=== PATIENT | male | born 1965 | race Caucasian/White ===

== ENCOUNTER → 2018-06-11 12:08 | Outpatient (CLI) | payer BC, SELFPAY ==
[2017-08-16 15:12] VITALS: BMI 33.2
[2018-06-11 15:19] LABS: Cholesterol 213 mg/dL (200); High Density Lipoprotein 55 mg/dL; PSA,Total - Annual Screen 0.46 ng/mL (0.00-4.00); Triglycerides 113 mg/dL; Very Low Density Lipoprotein 23 mg/dL (5-40)
== END ==
PROVIDERS: Family Provider Family Medicine; PCP Family Medicine; Visit Provider Family Medicine
DX: Z80.42 Family history of malignant neoplasm of prostate (principal)
CPT/HCPCS: 36415; 80061; 84153; G0103

== ENCOUNTER → 2018-06-15 14:43 | Outpatient (CLI) | payer BC, SELFPAY ==
[2018-06-15 17:54] LABS: CRP 8.47 mg/L (0.0-3.0); Rheumatoid Factor < 10.0 IU/mL (<15); Uric Acid 4.9 mg/dL (3.5-7.2)
[2018-06-15 18:00] LABS: Absolute Lymphocyte Count 2.22 X10^3/ul (0.83-4.51); Absolute Neutrophil Count 2.2 X10^3/uL (2.0-7.7); Basophil# 0.03 X10^3/uL; Basophil% 0.6 % (0-1); Eosinophil# 0.19 X10^3/uL; Eosinophils% 3.8 % (0-5); Hematocrit 41.9 % (40-54); Hemoglobin 13.9 g/dl (13.0-16.5); Lymphocyte # 2.22 X10^3/ul (4.0); Lymphocyte % 44.3 % (19-41); Mean Corp Hgb Conc 33.2 g/gl (32-36); Mean Corpuscular Hgb 29.8 pg (27.0-32.0); Mean Corpuscular Volume 89.7 fL (80-94); Mean Platelet Vol. 10.5 fl (6.2-12.0); Monocyte# 0.38 X10^3/uL; Monocyte% 7.6 % (0-10); Neutrophil # 2.18 X10^3/uL (2.7-7.7); Neutrophil % 43.5 % (47-70); Platelet Count 207 K/mm3 (150-450); RBC Distribution Width CV 12.7 % (11.6-14.6); RBC Distribution Width SD 40.9 fl (35.1-43.9); Red Blood Count 4.67 M/mm3 (4.6-6.2)
[2018-06-15 18:12] LABS: POSITIVE COUNT NO; POSITIVE DIFFERENTIAL NO; POSITIVE MORPHOLOGY NO
[2018-06-15 18:19] LABS: Erythrocyte Sedimentation Rate 21 mm/hr (0-20)
[2018-06-18 15:53] LABS: ANTINUCLEAR ANTIBODIES DIRECT Negative (Negative)
== END ==
PROVIDERS: Family Provider Family Medicine; PCP Family Medicine; Visit Provider Family Medicine
DX: M25.50 Pain in unspecified joint (principal)
CPT/HCPCS: 36415; 84550; 85025; 85652; 86038; 86140; 86431

== ENCOUNTER → 2018-08-08 14:17 | Outpatient (CLI) | payer BC, SELFPAY ==
[2018-08-08 15:37] LABS: Absolute Lymphocyte Count 1.97 X10^3/ul (0.83-4.51); Absolute Neutrophil Count 1.8 X10^3/uL (2.0-7.7); Basophil# 0.01 X10^3/uL; Basophil% 0.2 % (0-1); Eosinophil# 0.08 X10^3/uL; Eosinophils% 1.9 % (0-5); Hematocrit 41.8 % (40-54); Hemoglobin 13.9 g/dl (13.0-16.5); Lymphocyte # 1.97 X10^3/ul (4.0); Lymphocyte % 47.2 % (19-41); Mean Corp Hgb Conc 33.3 g/gl (32-36); Mean Corpuscular Hgb 29.9 pg (27.0-32.0); Mean Corpuscular Volume 89.9 fL (80-94); Mean Platelet Vol. 10.3 fl (6.2-12.0); Monocyte# 0.34 X10^3/uL; Monocyte% 8.2 % (0-10); Neutrophil # 1.77 X10^3/uL (2.7-7.7); Neutrophil % 42.5 % (47-70); POSITIVE COUNT NO; POSITIVE DIFFERENTIAL NO; POSITIVE MORPHOLOGY NO; Platelet Count 195 K/mm3 (150-450); RBC Distribution Width SD 42.2 fl (35.1-43.9); Red Blood Count 4.65 M/mm3 (4.6-6.2); White Blood Count 4.2 K/mm3 (4.4-11.0)
[2018-08-08 16:03] LABS: ALB/GLOB Ratio 1.4 RATIO (0.9-2.4); AST(SGOT) 17 U/L (15-37); Alanine Aminotransfer ALT/SGPT 31 U/L (16-61); Albumin, Serum 4.2 g/dL (3.2-5.0); Alkaline Phosphatase 63 U/L (45-117); Anion Gap 6 (5-15); BUN 12 mg/dL (7-18); BUN/Creat Ratio 10.4 RATIO (10-20); CRP < 2.90 mg/L (0.0-3.0); Calcium,Total 8.8 mg/dL (8.5-10.1); Chloride 107 mmol/L (98-107); Creatinine, Serum 1.15 mg/dL (0.70-1.30); EST Glomerular Filtration Rate 70 mL/min (>60); Est Glom Filt Rate - Afr Amer 85 mL/min (>60); Globulin 2.9 g/dL (2.2-4.2); Glucose 71 mg/dL (74-106); Potassium 4.2 mmol/L (3.5-5.1); Protein, Total 7.1 g/dL (6.4-8.2); Rheumatoid Factor < 10.0 IU/mL (<15); Sodium Level 143 mmol/L (136-145)
[2018-08-08 16:09] LABS: Erythrocyte Sedimentation Rate 12 mm/hr (0-20)
[2018-08-11 11:08] LABS: CCP IgG Antibodies 7 units (0-19); HEPATITIS B SURFACE AG Negative (Negative); Hep B Surface Antibodies Non Reactive (.); Hep C Antibodies 0.1 s/co ratio (0.0-0.9)
--- OUTSIDE RECORDS SUMMARY | 2018-10-13 11:17 | XMS RPT_ITS ---
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 / [facility] M06.4(ICD-10) Hospital Repository 06/12/2018 Unknown Z80.42 - Family Stephanie Dumont Active [facility] history of malignant [facility] neoplasm of prostate Hospital / Z80.42(ICD-10) Repository PROCEDURES PROCEDURES No Procedure Records FoundRESULTS RESULTS CBC W/DIFF, AUTOMATED Collected: 08/08/2018 Status: F Source: [facility] 2[facility] REPOSITORY TYPE CODE TESTS RESULT OUT OF RANGE REFERENCE UNITS LAB L100.1000 4.4-11.0 K/mm3 Low WBC 4.2 LAB L100.1200 4.6-6.2 M/mm3 Normal RBC 4.65 LAB L100.1300 13.0-16.5 g/dl Normal HGB 13.9 LAB L100.1400 40-54 % Normal HCT 41.8 LAB L100.1500 80-94 fL Normal MCV 89.9 LAB L100.1600 27.0-32.0 pg Normal MCH 29.9 LAB L100.1700 32-36 g/gl Normal MCHC 33.3 LAB L100.1810 11.6-14.6 % Normal RDW CV 13.0 LAB L100.1820 35.1-43.9 fl Normal RDW SD 42.2 LAB L100.1900 150-450 K/mm3 Normal PLT 195 LAB L100.2000 6.2-12.0 fl Normal MPV 10.3 LAB L100.2100 47-70 % Low NEUT% 42.5 LAB L100.2200 19-41 % High LY% 47.2 LAB L100.2300 0-10 % Normal MONO% 8.2 LAB L100.2400 0-5 % Normal EO% 1.9 LAB L100.2500 0-1 % Normal BASO% 0.2 LAB L100.2550 0.0-0.9 % Normal IM GRAN % 0.000 Result Comment: IG% - Immature Granulocytes (promyelocytes, myelocytes and metamyelocytes) > 1% indicates that a LEFT SHIFT is Present. LAB L100.2620 2.0-7.7 X10 3/uL Low Absolute Neut 1.8 LAB L100.2720 0.83-4.51 X10 3/ul Normal Absolute Lymph 1.97 Performed By: #### L100.0100, L101.9900 #### [facility] [address] [place], [place], [id number] ERYTHROCYTE SED RATE Collected: 08/08/2018 Status: F Source: [facility] 2:20 PM [facility] REPOSITORY TYPE CODE TESTS RESULT OUT OF RANGE REFERENCE UNITS LAB L102.0000 0-20 mm/hr Normal SED RATE 12 Performed By: #### L100.0100, L101.9900 #### [facility] [address] [place], [place], [id number] COMPREHENSIVE METABOLIC Collected: 08/08/2018 Status: F Source: [facility] PROFIL 2:20 PM [facility] REPOSITORY TYPE CODE TESTS RESULT OUT OF RANGE REFERENCE UNITS LAB L501.0100 74-106 mg/dL Low GLU 71 Result Comment: Please note revised GLUCOSE reference range effective 2017. LAB L501.1000 7-18 mg/dL Normal BUN 12 LAB L501.1100 0.70-1.30 mg/dL Normal CREAT,SERUM 1.15 Result Comment: The validity of the calculated GFR AND GFRAA in patients over 70 years has not been determined. Clinical correlation is essential. LAB L501.1110 >60 mL/min Normal EST GFR 70 Result Comment: Non- GFR Calc LAB L501.1115 >60 mL/min Normal EST GFR - AA 85 Result Comment: GFR Calc LAB L501.1300 10-20 RATIO Normal BUN/CRE 10.4 LAB L501.1500 6.4-8.2 g/dL T Normal PROT 7.1 LAB L501.1800 3.2-5.0 g/dL Normal ALB 4.2 LAB L501.1950 2.2-4.2 g/dL Normal GLOB 2.9 LAB L501.2000 0.9-2.4 RATIO Normal A/G 1.4 LAB L501.2200 8.5-10.1 mg/dL CA Normal 8.8 LAB L501.4100 15-37 U/L Normal AST 17 LAB L501.4305 45-117 U/L Normal ALK P 63 LAB L501.4405 16-61 U/L Normal ALT 31 LAB L501.4600 0.20-1.00 mg/dL T Normal BILI 0.50 LAB L501.5300 136-145 mmol/L NA Normal 143 LAB L501.5600 3.5-5.1 mmol/L K Normal 4.2 LAB L501.5900 98-107 mmol/L CL Normal 107 LAB L501.6100 21.0-32.0 mmol/L Normal CO2 30.0 LAB L501.6200 5-15 Normal GAP 6 Performed By: #### L500.4050, L501.6710, L505.7010 #### [facility] [address] [place], [place], [address] CRP Collected: 08/08/2018 Status: F Source: [facility] 2:20 PM [facility] REPOSITORY TYPE CODE TESTS RESULT OUT OF RANGE REFERENCE UNITS LAB L501.6710 0.0-3.0 mg/L Normal < 2.90 C-REACTIVE PROT Result Comment: C-Reactive Protein (CRP) provides useful information for the diagnosis, therapy and monitoring of inflammatory processes and associated diseases. For the evaluation of Relative Risk for Cardiovascular Disease, a High Sensitivity CRP (HSCRP) should be ordered. Performed By: #### L500.4050, L501.6710, L505.7010 #### [facility] [address] [place], [place], [address] RHEUMATOID FACTOR Collected: 08/08/2018 Status: F Source: [facility] 2:20 PM [facility] REPOSITORY TYPE CODE TESTS RESULT OUT OF RANGE REFERENCE UNITS LAB L505.7010 <15 IU/mL Normal RHEUMATOID FAC < 10.0 Performed By: #### L500.4050, L501.6710, L505.7010 #### [facility] [address] [place], [place], [id number] HEPATITIS B SURFACE Collected: 08/08/2018 Status: F Source: [facility] AG 2:20 PM [facility] REPOSITORY TYPE CODE TESTS RESULT OUT OF RANGE REFERENCE UNITS LAB L3100.0400 Negative Normal HB Negative SURF AG Result Comment: Performed at: - [facility] [address] [id number] Cloth Covered Helmet Puller: Cuauhtemoc Hernandez PhD, Phone: [phone] Performed at: - [facility] [id number] Cloth Covered Helmet Puller: Leonardo Szymanski MD, Phone: [phone] Performed By: #### L3100.0390, L3100.0528, L3100.0625, L4600.0100 #### [facility] (refer to report for specific site) refer to report for address and phone number HEP B SURFACE Collected: 08/08/2018 Status: F Source: [facility] ANTIBODIES 2:20 PM [facility] REPOSITORY TYPE CODE TESTS RESULT OUT OF RANGE REFERENCE UNITS LAB L3100.0528 . Normal Hep B Non Reactive Marivel AB Result Comment: Non Reactive: Inconsistent with immunity, less than 10 mIU/mL Reactive: Consistent with immunity, greater than 9.9 mIU/mL Performed By: #### L3100.0390, L3100.0528, L3100.0625, L4600.0100 #### [facility] (refer to report for specific site) refer to report for address and phone number HEPATITIS C ANTIBODIES Collected: 08/08/2018 Status: F Source: [facility] 2:20 PM [facility] REPOSITORY TYPE CODE TESTS RESULT OUT OF RANGE REFERENCE UNITS LAB L3100.0650 0.0-0.9 s/co ratio Normal HEP C AB 0.1 Result Comment: Negative: < 0.8 Indeterminate: 0.8 - 0.9 Positive: > 0.9 The CDC recommends that a positive HCV antibody result be followed up with a HCV Nucleic Acid Amplification test (820383). Performed By: #### L3100.0390, L3100.0528, L3100.0625, L4600.0100 #### [facility] (refer to report for specific site) refer to report for address and phone number CCP IGG ANTIBODIES Collected: 08/08/2018 Status: F Source: [facility] 2:20 PM [facility] REPOSITORY TYPE CODE TESTS RESULT OUT OF RANGE REFERENCE UNITS LAB L4600.0100 0-19 units Normal ANTI-CCP 7 [id number] Result Comment: Negative <20 Weak positive 20 - 39 Moderate positive 40 - 59 Strong positive >59 Performed By: #### L3100.0390, L3100.0528, L3100.0625, L4600.0100 #### [facility] (refer to report for specific site) refer to report for address and phone number URIC ACID Collected: 06/15/2018 Status: F Source: [facility] 2:44 PM [facility] REPOSITORY TYPE CODE TESTS RESULT OUT OF RANGE REFERENCE UNITS LAB L501.1400 3.5-7.2 mg/dL Normal URIC 4.9 Result Comment: The drugs N-Acetylcysteine and Metamizole may falsely depress this assay. Performed By: #### L501.1400, L501.6710, L505.7010 #### [facility] [place], [address] CRP Collected: 06/15/2018 Status: F Source: [facility] 2:44 PM [facility] REPOSITORY TYPE CODE TESTS RESULT OUT OF RANGE REFERENCE UNITS LAB L501.6710 0.0-3.0 mg/L High 8.47 C-REACTIVE PROT Result Comment: C-Reactive Protein (CRP) provides useful information for the diagnosis, therapy and monitoring of inflammatory processes and associated diseases. For the evaluation of Relative Risk for Cardiovascular Disease, a High Sensitivity CRP (HSCRP) should be ordered. Performed By: #### L501.1400, L501.6710, L505.7010 #### [facility] [address] [place], [place], [address] RHEUMATOID FACTOR Collected: 06/15/2018 Status: F Source: [facility] 2:44 PM [facility] REPOSITORY TYPE CODE TESTS RESULT OUT OF RANGE REFERENCE UNITS LAB L505.7010 <15 IU/mL Normal RHEUMATOID FAC < 10.0 Performed By: #### L501.1400, L501.6710, L505.7010 #### [facility] [address] [place], [place], [address] CBC W/DIFF, AUTOMATED Collected: 06/15/2018 Status: F Source: [facility] 2:44 PM [facility] REPOSITORY TYPE CODE TESTS RESULT OUT OF RANGE REFERENCE UNITS LAB L100.1000 4.4-11.0 K/mm3 Normal WBC 5.0 LAB L100.1200 4.6-6.2 M/mm3 Normal RBC 4.67 LAB L100.1300 13.0-16.5 g/dl Normal HGB 13.9 LAB L100.1400 40-54 % Normal HCT 41.9 LAB L100.1500 80-94 fL Normal MCV 89.7 LAB L100.1600 27.0-32.0 pg Normal MCH 29.8 LAB L100.1700 32-36 g/gl Normal MCHC 33.2 LAB L100.1810 11.6-14.6 % Normal RDW CV 12.7 LAB L100.1820 35.1-43.9 fl Normal RDW SD 40.9 LAB L100.1900 150-450 K/mm3 Normal PLT 207 LAB L100.2000 6.2-12.0 fl Normal MPV 10.5 LAB L100.2100 47-70 % Low NEUT% 43.5 LAB L100.2200 19-41 % High LY% 44.3 LAB L100.2300 0-10 % Normal MONO% 7.6 LAB L100.2400 0-5 % Normal EO% 3.8 LAB L100.2500 0-1 % Normal BASO% 0.6 LAB L100.2550 0.0-0.9 % Normal IM GRAN % 0.200 Result Comment: IG% - Immature Granulocytes (promyelocytes, myelocytes and metamyelocytes) > 1% indicates that a LEFT SHIFT is Present. LAB L100.2620 2.0-7.7 X10 3/uL Normal Absolute Neut 2.2 LAB L100.2720 0.83-4.51 X10 3/ul Normal Absolute Lymph 2.22 Performed By: #### L100.0100, L101.9900 #### [facility] [address] [place], [place], [address] ERYTHROCYTE SED RATE Collected: 06/15/2018 Status: F Source: [facility] 2:44 PM [facility] REPOSITORY TYPE CODE TESTS RESULT OUT OF RANGE REFERENCE UNITS LAB L102.0000 0-20 mm/hr High SED RATE 21 Performed By: #### L100.0100, L101.9900 #### [facility] [address] [place], [place], [address] ANTINUCLEAR ANTIBODIES Collected: 06/15/2018 Status: F Source: [facility] DIRECT 2:44 PM [facility] REPOSITORY TYPE CODE TESTS RESULT OUT OF RANGE REFERENCE UNITS LAB L3100.5475 Negative Normal Negative DARIEL-DIRECT Result Comment: Please Note: Specimen is lipemic. Performed at: - [facility] [id number] Cloth Covered Helmet Puller: Cuauhtemoc Hernandez PhD, Phone: [phone] Performed By: #### L3100.5475 #### [facility] (refer to report for specific site) refer to report for address and phone number LIPID PROFILE Collected: 06/11/2018 Status: F Source: [facility] 12:09 PM [facility] REPOSITORY TYPE CODE TESTS RESULT OUT OF RANGE REFERENCE UNITS LAB L501.4900 200 mg/dL High CHOL 213 Result Comment: <200 mg/dL Desirable 200-240 mg/dL Borderline >240 mg/dL High Risk LAB L501.5000 mg/dL Normal TRIG 113 Result Comment: The drugs N-Acetylcysteine and Metamizole may falsely depress this assay. Serum Triglycerides Reference Interval Normal <150 mg/dL Borderline high 150 - 199 mg/dL High 200 - 499 mg/dL Very High > or = 500 mg/dL LAB L501.6400 mg/dL Normal HDL 55 Result Comment: The drugs N-Acetylcysteine and Metamizole may falsely depress this assay. Reference Range HDL <40 mg/dL Low HDL Cholesterol HDL >or= 60 mg/dL High HDL Cholesterol LAB L501.6500 0-130 mg/dL High LDL 135 LAB L501.6600 5-40 mg/dL Normal VLDL 23 Performed By: #### L500.4100, L501.9910 #### [facility] [address] [place], [address] PSA,TOTAL - ANNUAL Collected: 06/11/2018 Status: F Source: [facility] SCREEN 12:09 PM [facility] REPOSITORY TYPE CODE TESTS RESULT OUT OF RANGE REFERENCE UNITS LAB L501.9910 0.00-4.00 ng/mL Normal PSA,TOT 0.46 SCREEN Result Comment: This test was performed using the TPSA assay method for the [employer] chemistry system. Values obtained with different assay methods cannot be used interchangably. When changing PSA assays in the course of monitoring a patient, additional sequential testing should be carried out to confirm baseline values. Performed By: #### L500.4100, L501.9910 #### [facility] [address] [place], [address] ALLERGIES ALLERGIES DATE TYPE / CODE NAME / CODE REACTION SEVERITY SOURCE 08/16/2017 Drug No Known Unknown [facility] Allergy/4160 Allergies/F00 Hospital 38413(SNOMED [id number](RXNOR Repository CT) M) ENCOUNTERS ENCOUNTERS ADMIT/DISCHARGE ACCOUNT ADMITTING ENCOUNTER LOCATION SOURCE NUMBER CLASS 08/08/2018 [id number] Amb[facility] 4 [facility] ing:MFPLAB Repository 06/15/2018 [id number] Amb[facility] [place] [facility] 0 [facility] ing:MFPLAB Repository 06/11/2018 [id number] Ambulatory [place] [facility] 6 [facility] ing:PLAB Repository PAYERS PAYERS ENCOUNTER GUARANTOR PAYER SUBSCRIBER SOURCE 08/08/2018 LIYAH A Primary LIYAH A [facility] [id number] [place] Insurance:ANTHEMPolic RHEESDOB: [facility] gwen CAPPS y Number: [id number] 130[address]Cxu: [phone]) [id number] Repository [phone] () Date:[id number], [place] [address]YL: 08/08/2018 Secondary NOT GIVENUNK [facility] Insurance:SELF PAY [facility] Number: Effective Repository Date:2018-08-08 06/15/2018 LIYAH A Primary LIYAH A [facility] [id number] [place] Insurance:ANTHEMPolic RHEESDOB: [facility] gwen CAPPS y Number: [id number] [address]Uge: [phone]) [id number] Repository [phone] () Date:[id number] [address], [place] [address]PX: 06/15/2018 Secondary NOT GIVENUNK [place] Insurance:SELF PAY [facility] Number: Effective Repository Date:2018-06-15 06/11/2018 LIYAH A Primary LIYAH A [place] [id number] [place] Insurance:ANTHEMPolic RHEESDOB: [facility] gwen CAPPS y Number: [id number] Hospital [address]Col: [phone]) [id number] Repository [phone] () Date:[id number] [address] [address]DS: 06/11/2018 Secondary NOT GIVENUNK [place] Insurance:SELF PAY [facility] Number: Effective Repository Date:2018-06-11
== END ==
PROVIDERS: Family Provider Family Medicine; PCP Family Medicine; Visit Provider Internal Medicine Rheumatology
DX: M06.4 Inflammatory polyarthropathy (principal)
CPT/HCPCS: 36415; 80053; 85025; 85652; 86140; 86200; 86431; 86706; 86803; 87340

== ENCOUNTER → 2018-10-01 10:34 | Outpatient (CLI) | payer BC, SELFPAY ==
--- NOTE | 2018-10-01 10:42 | US_ITS ---
STUDY: ABDOMINAL ULTRASOUND - RIGHT UPPER QUADRANT REASON FOR VISIT: Male, 53 years old. Intermittent right abdominal pain one year mostly when bending over. TECHNIQUE: Ultrasound evaluation of the right upper quadrant was performed with real-time and static estrada-scale imaging. TECHNICAL QUALITY: Adequate. COMPARISON: Chest x-ray 09/04/2016. FINDINGS: Liver: The liver measures 15.5 cm. There is normal echogenicity of the liver. The bile ducts are within normal limits. There is hepatic color flow. The direction of portal flow is hepatopetal. There is no demonstrated mass lesion. Left hepatic simple appearing cyst 25 x 26 x 24 mm. Gallbladder: Normal distended gallbladder. The gallbladder wall measures 2.8 mm. There is a negative sonographic Nichols's sign. There is no pericholecystic fluid. There are no gallstones. Common Bile Duct (C.B.D.): The common bile duct measures 3.1 mm. Pancreas: Normal size of the head, body and tail of the pancreas. Echogenic pancreas consistent with fatty atrophy. There is no demonstrated pancreatic mass or cyst. Right Kidney: Normal size of the right kidney. The right kidney measures 10.6 cm. Normal renal cortex. The right cortex measures 1.7 cm. There is no demonstrated renal mass or cyst. There is no right hydronephrosis. US/Abdomen Limited IMPRESSION: No acute abdominal process is evident. Unremarkable features of the gallbladder, liver, intrahepatic and extrahepatic biliary tree. Electronically Signed: Norman Cui MD at 16:20 EDT Tel , Service support ,
== END ==
PROVIDERS: Family Provider Family Medicine; PCP Family Medicine; Referring Provider Family Medicine; Visit Provider Family Medicine
DX: R10.11 Right upper quadrant pain (principal)
CPT/HCPCS: 76705

== ENCOUNTER → 2018-11-23 09:25 | Outpatient (CLI) | payer BC, SELFPAY ==
[2017-08-16 15:12] VITALS: BMI 33.2
[2018-11-23 10:36] LABS: Absolute Lymphocyte Count 1.65 X10^3/ul (0.83-4.51); Absolute Neutrophil Count 1.6 X10^3/uL (2.0-7.7); Basophil# 0.01 X10^3/uL; Basophil% 0.3 % (0-1); Eosinophil# 0.11 X10^3/uL; Hematocrit 42.5 % (40-54); Hemoglobin 14.2 g/dl (13.0-16.5); Lymphocyte # 1.65 X10^3/ul (4.0); Lymphocyte % 44.8 % (19-41); Mean Corp Hgb Conc 33.4 g/gl (32-36); Mean Corpuscular Hgb 29.2 pg (27.0-32.0); Mean Corpuscular Volume 87.4 fL (80-94); Mean Platelet Vol. 9.9 fl (6.2-12.0); Monocyte# 0.35 X10^3/uL; Monocyte% 9.5 % (0-10); Neutrophil # 1.55 X10^3/uL (2.7-7.7); Neutrophil % 42.1 % (47-70); Platelet Count 242 K/mm3 (150-450); RBC Distribution Width CV 12.3 % (11.6-14.6); RBC Distribution Width SD 38.6 fl (35.1-43.9); Red Blood Count 4.86 M/mm3 (4.6-6.2); White Blood Count 3.7 K/mm3 (4.4-11.0)
[2018-11-23 10:37] LABS: POSITIVE COUNT NO; POSITIVE DIFFERENTIAL NO; POSITIVE MORPHOLOGY NO
[2018-11-23 10:53] LABS: ALB/GLOB Ratio 1.3 RATIO (0.9-2.4); AST(SGOT) 22 U/L (15-37); Alanine Aminotransfer ALT/SGPT 38 U/L (16-61); Albumin, Serum 4.1 g/dL (3.2-5.0); Alkaline Phosphatase 65 U/L (45-117); Anion Gap 5 (5-15); BUN 15 mg/dL (7-18); BUN/Creat Ratio 11.8 RATIO (10-20); Calcium,Total 8.7 mg/dL (8.5-10.1); Chloride 108 mmol/L (98-107); Creatinine, Serum 1.27 mg/dL (0.70-1.30); EST Glomerular Filtration Rate 62 mL/min (>60); Est Glom Filt Rate - Afr Amer 76 mL/min (>60); Globulin 3.1 g/dL (2.2-4.2); Glucose 99 mg/dL (74-106); Potassium 4.4 mmol/L (3.5-5.1); Protein, Total 7.2 g/dL (6.4-8.2); Sodium Level 144 mmol/L (136-145)
== END ==
PROVIDERS: Family Provider Family Medicine; PCP Family Medicine; Referring Provider Family Medicine; Visit Provider Internal Medicine Rheumatology
DX: M06.4 Inflammatory polyarthropathy (principal)
CPT/HCPCS: 36415; 80053; 85025

== ENCOUNTER → 2018-12-31 15:52 | Outpatient (CLI) | payer BC, SELFPAY ==
[2017-08-16 15:12] VITALS: BMI 33.2
[2018-12-31 17:21] LABS: Absolute Lymphocyte Count 2.49 X10^3/ul (0.83-4.51); Absolute Neutrophil Count 1.7 X10^3/uL (2.0-7.7); Basophil# 0.01 X10^3/uL; Basophil% 0.2 % (0-1); Eosinophil# 0.12 X10^3/uL; Eosinophils% 2.6 % (0-5); Hematocrit 43.7 % (40-54); Hemoglobin 14.7 g/dl (13.0-16.5); Lymphocyte # 2.49 X10^3/ul (4.0); Mean Corp Hgb Conc 33.6 g/gl (32-36); Mean Corpuscular Volume 89.2 fL (80-94); Mean Platelet Vol. 10.2 fl (6.2-12.0); Monocyte# 0.32 X10^3/uL; Monocyte% 6.9 % (0-10); Neutrophil # 1.67 X10^3/uL (2.7-7.7); Neutrophil % 36.3 % (47-70); Platelet Count 199 K/mm3 (150-450); RBC Distribution Width SD 42.2 fl (35.1-43.9); White Blood Count 4.6 K/mm3 (4.4-11.0)
[2018-12-31 17:32] LABS: POSITIVE COUNT NO; POSITIVE DIFFERENTIAL NO; POSITIVE MORPHOLOGY NO
[2018-12-31 17:36] LABS: ALB/GLOB Ratio 1.1 RATIO (0.9-2.4); AST(SGOT) 19 U/L (15-37); Alanine Aminotransfer ALT/SGPT 30 U/L (16-61); Albumin, Serum 3.9 g/dL (3.2-5.0); Alkaline Phosphatase 64 U/L (45-117); Anion Gap 8 (5-15); BUN 16 mg/dL (7-18); BUN/Creat Ratio 14.4 RATIO (10-20); Calcium,Total 8.6 mg/dL (8.5-10.1); Chloride 108 mmol/L (98-107); Creatinine, Serum 1.11 mg/dL (0.70-1.30); EST Glomerular Filtration Rate 73 mL/min (>60); Est Glom Filt Rate - Afr Amer 88 mL/min (>60); Globulin 3.5 g/dL (2.2-4.2); Glucose 133 mg/dL (74-106); Potassium 4.4 mmol/L (3.5-5.1); Protein, Total 7.4 g/dL (6.4-8.2); Sodium Level 147 mmol/L (136-145)
== END ==
PROVIDERS: Family Provider Family Medicine; PCP Family Medicine; Visit Provider Internal Medicine Rheumatology
DX: M06.4 Inflammatory polyarthropathy (principal)
CPT/HCPCS: 36415; 80053; 85025

== ENCOUNTER → 2019-02-01 15:52 | Outpatient (CLI) | payer BC, SELFPAY ==
--- NOTE | 2019-02-01 15:59 | RAD_ITS ---
STUDY: X-RAY CHEST REASON FOR EXAM: Male, 53 years old. Cough one year TECHNIQUE: PA and lateral views of the chest. COMPARISON: September 04, 2016 chest x-ray FINDINGS: Interstitial markings are mildly prominent. There is slightly greater lingular density than when compared to prior study, seen on lateral view. There is no demonstrated pleural abnormality. Normal size heart. Normal mediastinum and dorene. Normal visualized pulmonary arteries. Normal visualized aortic arch and descending thoracic aorta. Normal visualized thoracic spine. Normal visualized ribs, clavicles, and shoulders. There is no demonstrated abnormality of the visualized soft tissue structures of the upper abdomen. RAD/Chest PA and Lateral IMPRESSION: Lingular atelectasis. Otherwise stable lung markings. Electronically Signed: Kelly Bishop MD at 18:02 EDT Tel , Service support ,
== END ==
PROVIDERS: Family Provider Family Medicine; PCP Family Medicine; Referring Provider Family Medicine; Visit Provider Family Medicine
DX: R05 Cough (principal); R06.02 Shortness of breath
CPT/HCPCS: 71046

== ENCOUNTER → 2019-02-20 16:50 | Outpatient (CLI) | payer BC, SELFPAY ==
[2017-08-16 15:12] VITALS: BMI 33.2
[2019-02-20 18:34] LABS: PSA,Total - Annual Screen 0.48 ng/mL (0.00-4.00)
== END ==
PROVIDERS: Family Provider Family Medicine; PCP Family Medicine; Referring Provider Family Medicine; Visit Provider Family Medicine
DX: Z12.5 Encounter for screening for malignant neoplasm of prostate (principal); Z80.42 Family history of malignant neoplasm of prostate
CPT/HCPCS: 36415; 84153; G0103

== ENCOUNTER → 2019-03-14 16:35 | Outpatient (CLI) | payer BC, SELFPAY ==
[2017-08-16 15:12] VITALS: BMI 33.2
--- NOTE | 2019-03-14 16:38 | RAD_ITS ---
STUDY: X-RAY CHEST REASON FOR EXAM: Male, 54 years old. Cough TECHNIQUE: Frontal and lateral views of the chest. COMPARISON: 02/01/2019. FINDINGS: The lungs are clear and expanded. There is no demonstrated pleural abnormality. Normal size heart. Normal mediastinum and dorene. Normal visualized pulmonary arteries. Normal visualized aortic arch and descending thoracic aorta. Normal visualized thoracic spine. Normal visualized ribs, clavicles, and shoulders. There is no demonstrated abnormality of the visualized soft tissue structures of the upper abdomen. RAD/Chest PA and Lateral IMPRESSION: Normal x-ray examination of the chest. Electronically Signed: Romeo Romo MD at 17:34 EDT , Service support ,
== END ==
PROVIDERS: Family Provider Family Medicine; PCP Family Medicine; Referring Provider Family Medicine; Visit Provider Family Medicine
DX: R05 Cough (principal)
CPT/HCPCS: 71046

== ENCOUNTER → 2019-04-26 09:50 | Outpatient (CLI) | payer OTHER, SELFPAY ==
[2019-04-24 10:42] VITALS: BMI 33.2
--- NOTE | 2019-04-26 13:05 | PFTCOMP ---
COMPLETE PULMONARY FUNCTION TEST INTERPRETATION Brief HPI: Patient is a 54 year old male, currently under the care of myself, who presents to [facility] for complete pulmonary function tests secondary to diagnosis of dyspnea. Respiratory therapist reports good effort and reproducible results. Interpretation: Forced expiration spirometry shows no large airways obstructive ventilatory defect with an FEV1 of 105% predicted. There is no significant bronchodilator response by strict ATS criteria. Spirograms are of good quality and plateau normally. The respiratory flow volume loop shows a normal pattern. Lung volumes by body plethysmography show a decreased total lung capacity at 5.87 L, 84% predicted. All other lung volumes are reduced symmetrically. Diffusion capacity by carbon monoxide is normal at 99% predicted. The airway resistance is normal. No previous pulmonary function tests were available for review. Impression: Mild restrictive ventilatory defect with preserved diffusion capacity and a pattern consistent with musculoskeletal limitation.
== END ==
PROVIDERS: Family Provider Family Medicine; PCP Family Medicine; Referring Provider Internal Medicine Critical Care Medicine; Visit Provider Internal Medicine Critical Care Medicine
DX: R05 Cough (principal); M05.79 Rheumatoid arthritis with rheumatoid factor of multiple sites without organ or systems involvement
CPT/HCPCS: 94060; 94726; 94729

== ENCOUNTER → 2019-05-03 16:24 | Outpatient (CLI) | payer OTHER, SELFPAY ==
[2019-04-24 10:42] VITALS: BMI 33.2
--- NOTE | 2019-05-03 16:25 | CT_ITS ---
STUDY: CT CHEST WITHOUT CONTRAST REASON FOR EXAM: Male, 54 years old. Cough for 18 months RADIATION DOSAGE (If Supplied By Facility): CTDIvol = ( 19.06 ) mGy, DLP = ( 685.71 ) mGycm TECHNIQUE: Transaxial imaging was performed without the administration of intravenous contrast material. Multiplanar coronal and sagittal images were reformatted. Individualized dose optimization techniques were used for this CT. COMPARISON: None. FINDINGS: Lungs are normal. No airspace consolidation, interstitial fibrosis or interstitial edema. No bronchiectasis or honeycombing. No cavitating process. There is no demonstrated pleural abnormality. Normal heart and pericardium. Normal mediastinum. Normal hilar regions. Normal unenhanced pulmonary arteries. Normal aorta arch and descending thoracic aorta. Normal osseous structures. Simple cysts of the left hepatic lobe measures 2.[address]/Chest without Contrast IMPRESSION: No interstitial lung disease or air space process. Electronically Signed: Renato Reyes MD ([place]) at 15:56 EDT , Service support ,
== END ==
PROVIDERS: Family Provider Family Medicine; PCP Family Medicine; Referring Provider Internal Medicine Critical Care Medicine; Visit Provider Internal Medicine Critical Care Medicine
DX: R05 Cough (principal); M05.79 Rheumatoid arthritis with rheumatoid factor of multiple sites without organ or systems involvement
CPT/HCPCS: 71250

== ENCOUNTER → 2020-06-26 09:46 | Outpatient (CLI) | payer OTHER, SELFPAY ==
[2020-06-22 11:33] VITALS: BMI 33.6
[2020-06-26 13:44] LABS: Anion Gap 6 (5-15); BUN 21 mg/dL (7-18); BUN/Creat Ratio 17.2 RATIO (10-20); Calcium,Total 8.8 mg/dL (8.5-10.1); Chloride 107 mmol/L (98-107); Creatinine, Serum 1.22 mg/dL (0.70-1.30); EST Glomerular Filtration Rate 65 mL/min (>60); Est Glom Filt Rate - Afr Amer 79 mL/min (>60); Glucose 93 mg/dL (74-106); PSA,Total - Annual Screen 0.51 ng/mL (0.00-4.00); Potassium 4.2 mmol/L (3.5-5.1); Sodium Level 138 mmol/L (136-145); T4 Free Direct 1.09 ng/dL (0.76-1.46); Thyroid Stim Hormone (TSH) 1.05 uIU/mL (0.358-3.74)
== END ==
PROVIDERS: PCP Family Medicine; Visit Provider Family Medicine
DX: M06.9 Rheumatoid arthritis, unspecified (principal); E78.5 Hyperlipidemia, unspecified; Z80.42 Family history of malignant neoplasm of prostate
CPT/HCPCS: 36415; 80048; 84153; 84439; 84443; G0103

== ENCOUNTER → 2020-09-18 10:33 | Outpatient (CLI) | payer OTHER, SELFPAY ==
[2020-06-22 11:33] VITALS: BMI 33.6
[2020-09-18 12:53] LABS: Absolute Lymphocyte Count 2.02 X10^3/uL (0.83-4.51); Absolute Neutrophil Count 1.6 X10^3/uL (2.0-7.7); Basophil# 0.03 X10^3/uL; Basophil% 0.7 % (0-1); Eosinophils% 2.5 % (0-5); Hematocrit 44.4 % (40-54); Hemoglobin 14.5 g/dL (13.0-16.5); Lymphocyte # 2.02 X10^3/ul (4.0); Mean Corp Hgb Conc 32.7 g/dL (32-36); Mean Corpuscular Hgb 30.3 pg (27.0-32.0); Mean Corpuscular Volume 92.7 fL (80-94); Mean Platelet Vol. 10.7 fl (6.2-12.0); Monocyte# 0.33 X10^3/uL; Monocyte% 8.2 % (0-10); NRBC Flagged by Analyzer 0 % (0-5); Neutrophil # 1.55 X10^3/uL (2.7-7.7); Neutrophil % 38.4 % (47-70); Platelet Count 185 K/mm3 (150-450); RBC Distribution Width SD 41.1 fl (35.1-43.9); Red Blood Count 4.79 M/mm3 (4.6-6.2)
== END ==
PROVIDERS: PCP Family Medicine
DX: D72.819 Decreased white blood cell count, unspecified (principal)
CPT/HCPCS: 36415; 85025

== ENCOUNTER → 2021-04-14 | Outpatient (CLI) | payer OTHER, SELFPAY | END | disposition home or self-care (01) | LOC: LABSPEC 15:14 | PROVIDERS: PCP Family Medicine; Visit Provider Physician Assistant | DX: U07.1 COVID-19 (principal) | CPT/HCPCS: 87635; U0005; U0003 ==

== ENCOUNTER 2021-04-18 17:39 | Emergency (ER) | payer OTHER, SELFPAY ==
[2021-04-18 17:39] VITALS: BP 147/86; PULSE 110; RESP 18; TEMP 36.1; O2SAT 98; BMI 31.8
--- NOTE | 2021-04-18 17:47 | EKG12_ITS ---
Test Reason : Blood Pressure : / mmHG Vent. Rate : 083 BPM Atrial Rate : 083 BPM P-R Int : 132 ms QRS Dur : 094 ms QT Int : 350 ms P-R-T Axes : 033 -33 001 degrees QTc Int : 411 ms Normal sinus rhythm Left axis deviation Abnormal ECG Confirmed by TINY STEPHENSON, DERRICK ([id number]), editor in chief JAYLA ENRIQUEZ ([id number]) on 04/21/2021 9:58:36 AM Referred By: REANNA Confirmed By:DERRICK FRANKS MD
[2021-04-18 17:55] VITALS: BP 117/77; PULSE 88; RESP 20; TEMP 37.3; O2SAT 91
[2021-04-18 17:57] VITALS: O2SAT 92
--- NOTE | 2021-04-18 18:10 | RAD_ITS ---
INDICATION: cough EXAMINATION/TECHNIQUE: X-RAY - XR Chest 1 View COMPARISON: 03/14/2019. FINDINGS: The lungs are clear. The cardiomediastinal silhouette is unremarkable. No pleural effusion or pneumothorax. No acute osseous abnormalities. RAD/Chest 1 View (Portable) IMPRESSION: No acute radiographic abnormalities. Electronically Signed: Marcelo Luevano MD at 18:49 EDT Tel , Service support ,
[2021-04-18 18:21] LABS: Absolute Lymphocyte Count 0.94 X10^3/uL (0.83-4.51); Absolute Neutrophil Count 2.6 X10^3/uL (2.0-7.7); Basophil# 0.01 X10^3/uL; Basophil% 0.3 % (0-1); Hematocrit 46.5 % (40-54); Hemoglobin 15.8 g/dL (13.0-16.5); Lymphocyte # 0.94 X10^3/ul (0.83-4.51); Lymphocyte % 23.7 % (19-41); Mean Corpuscular Hgb 30.4 pg (27.0-32.0); Mean Corpuscular Volume 89.6 fL (80-94); Mean Platelet Vol. 10.2 fl (6.2-12.0); Monocyte# 0.36 X10^3/uL; Monocyte% 9.1 % (0-10); NRBC Flagged by Analyzer 0 % (0-5); Neutrophil # 2.62 X10^3/uL (2.7-7.7); Neutrophil % 66.1 % (47-70); Platelet Count 134 K/mm3 (150-450); RBC Distribution Width CV 11.9 % (11.6-14.6); RBC Distribution Width SD 39.5 fl (35.1-43.9); Red Blood Count 5.19 M/mm3 (4.6-6.2)
[2021-04-18 18:41] LABS: ALB/GLOB Ratio 0.9 RATIO (0.9-2.4); AST(SGOT) 45 U/L (15-37); Alanine Aminotransfer ALT/SGPT 50 U/L (16-61); Albumin, Serum 3.8 g/dL (3.2-5.0); Alkaline Phosphatase 72 U/L (45-117); Anion Gap 10 (5-15); BUN 18 mg/dL (7-18); BUN/Creat Ratio 11.7 RATIO (10-20); Calcium,Total 8.8 mg/dL (8.5-10.1); Chloride 99 mmol/L (98-107); Creatinine, Serum 1.54 mg/dL (0.70-1.30); EST Glomerular Filtration Rate 50 mL/min (>60); Est Glom Filt Rate - Afr Amer 60 mL/min (>60); Estimated Creatinine Clearance 57.39 ml/min; Globulin 4.2 g/dL (2.2-4.2); Glucose 116 mg/dL (74-106); Sodium Level 135 mmol/L (136-145); Troponin-I HS 10 pg/mL (3.0-78.0)
[2021-04-18 18:46] LABS: Procalcitonin 0.16 ng/mL (0.00-0.09)
[2021-04-18] MEDS: Ondansetron 4 MG/2 ML Vial IV (18:58)
[2021-04-18 19:01] VITALS: BP 121/78; PULSE 88; RESP 19; TEMP 37.6; O2SAT 93
--- NOTE | 2021-04-18 20:15 | EDS_ITS ---
HPI HPI - URI History of Present Illness Chief Complaint: Shortness of Breath Narrative Narrative: 56-year-old male Covid positive and been sick for approximately 5 to 6 days. Patient expresses that he has nausea. He has decreased p.o. intake due to nausea. He is not vomiting. He states he has had fever, chills, body aches. He denies loss of taste or smell. Patient states he has similar symptoms as to when he had the flu. He states he had difficulty recovering from influenza as well. Patient states that his chest is somewhat burning but denies pressure or sharp pain. ROS ROS ED Constitutional Constitutional ED: Reports chills and fever(s) Eyes Eyes: Denies blurry vision or diplopia ENT ENT ED: Reports sore throat; Denies rhinorrhea Cardiovascular Cardiovascular: Reports other Details: Burning bilateral lung pain ; Denies palpitations or racing heartbeat Respiratory/Chest Respiratory/Chest: Reports cough; Denies dyspnea or sputum Gastrointestinal Gastrointestinal: Reports diarrhea and nausea; Denies abdominal pain or vomiting Genitourinary Genitourinary ED: Denies dysuria or hematuria Musculoskeletal Musculoskeletal: Reports myalgias; Denies arthralgias, back pain or neck pain Integumentary Denies abscess or rash Neurologic Neurologic: Reports headache(s); Denies paresthesias or weakness PFSH PFSH Medical History Allergies BPH associated with nocturia Cough Dermatitis Encounter for screening for COVID-19 Erectile dysfunction Obesity Rheumatoid arthritis Home Medications meloxicam 15 mg PO DAILY 04/18/21 [History Last Taken Unknown] ondansetron 4 mg PO Q8H PRN PRN #20 tab 04/18/21 [Rx Last Taken Unknown] sildenafil 100 mg PO 04/18/21 [History Last Taken Unknown] Allergy/AdvReac Type Severity Reaction Status Date / Time No Known Allergies Allergy Verified 04/18/21 17:58 Family History Father Arthritis Diabetes Hypertension Heart disease High cholesterol Prostate cancer Bone cancer Mother Lymphoma Surgical History S/P rhinoplasty S/P tonsillectomy Social History Smoking Status: Never smoker second hand exposure: No alcohol intake: current alcohol intake frequency: holidays/special occasions only substance use type: does not use caffeine: No what type of physical activity do you participate in: none frequency: does not exercise seatbelt use: always EXAM Physical Exam Const Vital Signs: 04/18/21 17:39 04/18/21 17:55 04/18/21 17:57 Temperature 97 F L 99.2 F H Temperature Source Temporal Oral Pulse Rate 110 H 88 Respiratory Rate 18 20 H Respiratory Effort Normal Respiratory Depth Normal Respiratory Pattern Normal Blood Pressure 147/86 H 117/77 Blood Pressure Mean 106 90 Pulse Ox 98 91 Oxygen Delivery Method Room Air Room Air Room Air 04/18/21 19:01 04/18/21 20:49 04/18/21 22:20 Temperature 99.6 F H Temperature Source Oral Pulse Rate 88 86 87 Respiratory Rate 19 H 19 H 20 H Respiratory Effort Respiratory Depth Respiratory Pattern Blood Pressure 121/78 H 122/84 H 129/75 H Blood Pressure Mean 92 96 Pulse Ox 93 94 93 Oxygen Delivery Method Room Air Room Air Positive well nourished General Appearance ED: NAD; Negative for pallor HEENT Reports moist mucous membranes normocephalic and atraumatic Eyes PERRL and EOMs intact bilaterally Resp normal respiratory effort and clear to auscultation bilaterally Cardio Rate: regular rate Rhythm: regular rhythm Neuro oriented x3, CN's II-XII intact bilaterally and no sensory deficits noted Sensorium / Orientation: alert Motor Exam: strength 5/5 throughout Psych mental status grossly normal Skin General Skin Exam: Negative for jaundice or pallor Rashes: no rashes MDM MDM MDM Narrative Medical decision making narrative: Patient presenting on day 5 or 6 of COVID-19 symptoms. He states that his lungs were like they are burning but he denies chest pressure or sharp pain in his chest. His EKG on my interpretation shows a normal sinus rhythm with a ventricular rate of 83 bpm without sign of ischemic change. Chest x-ray on my interpretation shows no acute cardiopulmonary process and the radiologist does agree. CBC shows he he is leukopenic but he is not lymphopenic. Creatinine is slightly elevated 1.54 and was previously about 1.2. Patient is given 500 cc of IV fluids. Lactic acid is negative. LFTs are normal. Procalcitonin is not elevated. Patient was given Zofran for his nausea. He was reevaluated at 8:10 PM and he was sleeping comfortably in bed. When I awakened him he stated that a few minutes ago he had some nausea but he has not vomited. His pulse ox at that time was 96%. His heart rate was in the 80s. He does not appear short of breath or in any distress. Patient was ambulated on room air and did drop to 91% but briskly came back up to 96%. Patient's creatinine is slightly elevated he was given 500 cc of IV fluids. Patient counseled to monitor his pulse ox at home and if it is dropping he should return to the ED for repeat evaluation. Patient is prescribed Zofran for home. He is counseled to hydrate well. He should alternate Tylenol ibuprofen for fever or chills or body aches. Impression: 1. COVID-19 pneumonitis 2. Nausea/vomiting Lab Data Labs: Laboratory Results - last 24 hr 04/18/21 04/18/21 04/18/21 08:07 08:07 08:07 WBC 4.0 L RBC 5.19 Hgb 15.8 Hct 46.5 MCV 89.6 MCH 30.4 MCHC 34.0 RDW Std Deviation 39.5 RDW Coeff of Ede 11.9 Plt Count 134 L MPV 10.2 Immature Gran % (Auto) 0.800 Neut % (Auto) 66.1 Lymph % (Auto) 23.7 Douglas % (Auto) 9.1 Eos % (Auto) 0.0 Baso % (Auto) 0.3 Absolute Neuts (auto) 2.6 Absolute Lymphs (auto) 0.94 Nucleated RBC % 0 Sodium 135 L Potassium 4.0 Chloride 99 Carbon Dioxide 26.0 Anion Gap 10 BUN 18 Creatinine 1.54 H Estim Creat Clear Calc 57.39 Est GFR (MDRD) Af Amer 60 Est GFR (MDRD) Non-Af 50 L BUN/Creatinine Ratio 11.7 Glucose 116 H Lactic Acid 1.0 Calcium 8.8 Total Bilirubin 0.50 AST 45 H ALT 50 Alkaline Phosphatase 72 Troponin I High Sens 10 Total Protein 8.0 Albumin 3.8 Globulin 4.2 Albumin/Globulin Ratio 0.9 Procalcitonin 04/18/21 08:07 WBC RBC Hgb Hct MCV MCH MCHC RDW Std Deviation RDW Coeff of Ede Plt Count MPV Immature Gran % (Auto) Neut % (Auto) Lymph % (Auto) Douglas % (Auto) Eos % (Auto) Baso % (Auto) Absolute Neuts (auto) Absolute Lymphs (auto) Nucleated RBC % Sodium Potassium Chloride Carbon Dioxide Anion Gap BUN Creatinine Estim Creat Clear Calc Est GFR (MDRD) Af Amer Est GFR (MDRD) Non-Af BUN/Creatinine Ratio Glucose Lactic Acid Calcium Total Bilirubin AST ALT Alkaline Phosphatase Troponin I High Sens Total Protein Albumin Globulin Albumin/Globulin Ratio Procalcitonin 0.16 H Radiography Diagnostic Testing: Radiology Impression Chest X-Ray 04/18/21 18:10 IMPRESSION: No acute radiographic abnormalities. Electronically Signed: Marcelo Luevano MD at 18:49 EDT Tel , Service support , Discharge Plan Triage Chief Complaint: Shortness of Breath ED Provider: Pierre Deshpande Dx/Rx/DC Orders Instructions: Coronavirus Disease 2019 (COVID-19): Caring for Yourself or Others, ED Dehydration (Adult) Prescriptions: New ondansetron 4 mg tablet,disintegrating 4 mg PO Q8H PRN PRN (Reason: Nausea) Qty: 20 RF: 0 No Action meloxicam 15 mg tablet 15 mg PO DAILY RF: 0 sildenafil 100 mg tablet 100 mg PO RF: 0 Primary Care Provider: Speedy Jolly Referrals: Speedy Jolly MD [Primary Care Provider] - Disposition Disposition: Home, Self Care Discharge Date/Time: 04/18/21 22:20
[2021-04-18 20:49] VITALS: BP 122/84; PULSE 86; RESP 19; O2SAT 94
[2021-04-18 22:20] VITALS: BP 129/75; PULSE 87; RESP 20; O2SAT 93
== END 2021-04-18 22:20 | disposition home or self-care (01) ==
PROVIDERS: Emergency Provider Student in an Organized Health Care Education/Training Program; PCP Family Medicine
DX: U07.1 COVID-19 (principal); J12.82 Pneumonia due to coronavirus disease 2019; R11.2 Nausea with vomiting, unspecified; M06.9 Rheumatoid arthritis, unspecified; E66.9 Obesity, unspecified; Z79.1 Long term (current) use of non-steroidal anti-inflammatories (NSAID); Z79.899 Other long term (current) drug therapy
CPT/HCPCS: 71045; 80053; 83605; 84145; 84484; 85025; 93005; 96361; 96374; 99284; J7040; A4216; J2405

== ENCOUNTER 2021-04-19 15:13 | Emergency (ER) | payer OTHER, SELFPAY ==
[2021-04-19] VITALS (9 sets, daily range): BP systolic 132; BP diastolic 98; PULSE 83–103; RESP 18–98; TEMP 36.7; O2SAT 85–99; BMI 32.5
--- NOTE | 2021-04-19 17:47 | RAD_ITS ---
STUDY: X-RAY CHEST REASON FOR EXAM: Male, 56 years old. dyspnea TECHNIQUE: AP portable COMPARISON: 04/18/2021 FINDINGS: Bilateral perihilar interstitial thickening with subtle areas of slightly increased density in the lower lobes consistent with Covid 19 pneumonia. There is no demonstrated pleural abnormality. Normal size heart. Normal mediastinum and dorene. Normal visualized pulmonary arteries. Normal visualized aortic arch and descending thoracic aorta. Normal visualized thoracic spine. Normal visualized ribs, clavicles, and shoulders. There is no demonstrated abnormality of the visualized soft tissue structures of the upper abdomen. RAD/Chest 1 View (Portable) IMPRESSION: Findings consistent with mild Covid 19 pneumonia. Electronically Signed: Benny Denny MD at 18:48 EDT , Service support ,
--- NOTE | 2021-04-19 18:14 | EDS_ITS ---
HPI History of Present Illness Chief Complaint: Shortness of Breath Narrative Narrative: Patient presenting with hypoxia. Patient was seen yesterday and had blood work done which was fairly normal. Patient was discharged home because he did not require any oxygen. His chest x-ray yesterday was negative. He states that he felt well today and was actually walking around outside. His continually checked his pulse ox and then he noted it dropped to about 88. Patient was sent to the ER for evaluation. Patient denies any chest pain. He states that his shortness of breath is unchanged. Patient states that he only took 1 Zofran he felt great today. He is been able to eat and drink. [facility] Medical History Allergies BPH associated with nocturia Cough Dermatitis Encounter for screening for COVID-19 Erectile dysfunction Obesity Rheumatoid arthritis Home Medications meloxicam 15 mg PO DAILY 04/18/21 [History Last Taken Unknown] dexamethasone 6 mg PO DAILY #7 tab 04/19/21 [Rx Last Taken Unknown] Allergy/AdvReac Type Severity Reaction Status Date / Time No Known Allergies Allergy Verified 04/19/21 15:17 Family History Father Arthritis Diabetes Hypertension Heart disease High cholesterol Prostate cancer Bone cancer Mother Lymphoma Surgical History S/P rhinoplasty S/P tonsillectomy Social History Smoking Status: Never smoker second hand exposure: No alcohol intake: current alcohol intake frequency: holidays/special occasions only substance use type: does not use caffeine: No what type of physical activity do you participate in: none frequency: does not exercise seatbelt use: always ROS ROS ED Constitutional Constitutional ED: Denies chills or fever(s) Eyes Eyes: Denies blurry vision or change in vision ENT ENT ED: Denies rhinorrhea or sore throat Cardiovascular Cardiovascular: Denies chest pain or palpitations Respiratory/Chest Respiratory/Chest: Reports cough; Denies dyspnea or sputum Gastrointestinal Gastrointestinal: Denies abdominal pain, nausea or vomiting Genitourinary Genitourinary ED: Denies dysuria or hematuria Musculoskeletal Musculoskeletal: Denies arthralgias or myalgias Integumentary Denies Abrasions or rash Neurologic Neurologic: Denies headache(s) or paresthesias EXAM Physical Exam Const Vital Signs: 04/19/21 15:14 04/19/21 16:49 04/19/21 16:50 Temperature 98.1 F Temperature Source Temporal Pulse Rate 103 H 83 Respiratory Rate 18 Respiratory Effort Short of Breath Blood Pressure 132/98 H Blood Pressure Mean 109 Pulse Ox 91 99 Pulse Ox [AMBULATING on Room Air] Pulse Ox [AMBULATING with Oxygen #1] Pulse Ox [At REST on Room Air] Pulse Ox [At REST with Oxygen] Oxygen Delivery Method Room Air Nasal Cannula Nasal Cannula Oxygen Flow Rate (L/min) 2 Oxygen Flow Rate (L/min) [AMBULATING with Oxygen #1] 04/19/21 16:52 04/19/21 16:56 04/19/21 18:21 Temperature Temperature Source Pulse Rate 94 Respiratory Rate 98 H Respiratory Effort Blood Pressure Blood Pressure Mean Pulse Ox 85 99 Pulse Ox [AMBULATING on Room Air] Pulse Ox [AMBULATING with Oxygen #1] Pulse Ox [At REST on Room Air] Pulse Ox [At REST with Oxygen] Oxygen Delivery Method Room Air Nasal Cannula Nasal Cannula Oxygen Flow Rate (L/min) 2 2 Oxygen Flow Rate (L/min) [AMBULATING with Oxygen #1] 04/19/21 18:29 04/19/21 18:33 Temperature Temperature Source Pulse Rate 94 Respiratory Rate 20 H Respiratory Effort Blood Pressure Blood Pressure Mean Pulse Ox 98 Pulse Ox [AMBULATING on Room Air] 85 Pulse Ox [AMBULATING with Oxygen #1] 99 Pulse Ox [At REST on Room Air] 95 Pulse Ox [At REST with Oxygen] 99 Oxygen Delivery Method Oxygen Flow Rate (L/min) Oxygen Flow Rate (L/min) [AMBULATING with Oxygen #1] 2 Positive well nourished General Appearance ED: NAD; Negative for pallor HEENT Reports moist mucous membranes atraumatic Eyes PERRL and EOMs intact bilaterally Resp normal respiratory effort and clear to auscultation bilaterally Auscultation: Negative for rales, rhonchi or wheezes Cardio regular rate and regular rhythm Neuro oriented x3, CN's II-XII intact bilaterally and no sensory deficits noted Sensorium / Orientation: alert Motor Exam: strength 5/5 throughout Psych mental status grossly normal Thought Process: normal thought process Skin General Skin Exam: Negative for jaundice or pallor Rashes: no rashes MDM MDM MDM Narrative Medical decision making narrative: Patient presenting with low pulse ox. He is placed on 2 L and he has been maintaining normal O2 sats. He ranges from 96-99. I did get him up at the bedside and ambulated him that he stated 100% while ambulating. He states he feels well. He is not dizzy or lightheaded. His nausea from yesterday has resolved. Reviewed patient's blood work yesterday. Will repeat chest x-ray today to see if there is any change. Patient's chest x- ray on my rotation shows mild bilateral pulmonary infiltrates. The radiologist does agree. He will be started on dexamethasone with the plan to be discharged home with oxygen. I did discuss at length how to monitor his pulse ox and he will monitor himself for new or worsening symptoms. He is given strict return precautions. Impression: 1. COVID-19 pneumonitis Radiography Diagnostic Testing: Radiology Impression Chest X-Ray 04/19/21 17:47 IMPRESSION: Findings consistent with mild Covid 19 pneumonia. Electronically Signed: Benny Denny MD at 18:48 EDT , Service support , Discharge Plan Triage Chief Complaint: Shortness of Breath ED Provider: Pierre Deshpande Dx/Rx/DC Orders Instructions: Coronavirus Disease 2019 (COVID-19): Caring for Yourself or Others Prescriptions: New dexamethasone 6 mg tablet 6 mg PO DAILY Qty: 7 RF: 0 No Action meloxicam 15 mg tablet 15 mg PO DAILY RF: 0 Primary Care Provider: Speedy Jolly Referrals: Speedy Jolly MD [Primary Care Provider] - Disposition Disposition: Home, Self Care
[2021-04-19] MEDS: dexAMETHasone 4 MG Tablet 6 MG PO (18:31)
--- NOTE | 2021-04-19 19:25 | CM.ED ---
KANIKA Note Referral Source: hr specialist Reson: Home Oxygen KANIKA was advised that patient will need home oxygen at discharge. KANIKA faxed referral packet to [facility] and called [employer] and made an after hour referral. [employer] called this medical writer however, due to telephone issues the call was lost. KANIKA spoke to [facility] and he advised was coming to bring patient home and they had contact number to call [facility]. KANIKA sent email to [facility] advising of home oxygen discharge. Plan: Home Oxygen Enriqueta EDWARDS
--- NOTE | 2021-04-20 12:02 | CASEMGMT ---
RN KALIN ED COVID Home O2 Follow-up: This RN CM contacted pt via phone in follow-up to discharge from ED with home O2. Pt reports to be wearing the O2 continuously at 2l/min and states his checks his PO regularly and is writing the readings down. Pt reports the readings to be 94-96% at rest. Pt states he has not checked it with exertion. Encouraged pt to intermittently check it with exertion to make sure his is not dropping with activity. Pt expressed understanding. Pt states he has been able to stay isolated from others. Pt states he has not contacted his PCP yet for follow-up. This RN CM encouraged pt to make an appointment for follow-up. Pt was agreeable. Pt states he was only able to get one dose of the steroid due to the pharmacy being out of the medication but states it has been ordered and will be able to get the additional doses tomorrow. Pt denies any questions or concerns at this time. Catherine Britton RN CM
--- NOTE | 2021-04-21 12:44 | CASEMGMT ---
REBEL [facility]AGNON ED COVID Home O2 Follow-up: This REBEL GAGNON contacted pt via phone. Pt's answered and states pt continues with a fever. States temp was 99.7 last pm but is 102.2 this AM. Reports to be giving pt Tylenol [id number]. States pt is not eating well or drinking well but she is encouraging him to at least drink. States her mother is currently picking up the remaining Decadron pills. States she called pt's PCP Dr. Jolly and they did not want to see pt for 14 days but he has an appointment scheduled for 05/04. is aware to call Dr. Jolly's office if pt worsens or bring pt to the ED. Pt's reports pt is not SOB and states his PO has been 93% at rest on 2l/min. States it did decrease to 90-91% with ambulation to the porch last evening. Pt's asked about a nebulizer. Did explain that if he were to have increased difficulty breathing this may be something Dr. Jolly could prescribe. reports pt to not currently have any difficulty breathing and expressed understanding of calling Dr. Jolly if worsening occurs. Pt's denied any further questions or concerns and asked pt if he had any additional information to share. Pt denied having any additional concerns. Bo Britton RN CM
--- NOTE | 2021-04-23 11:30 | CASEMGMT ---
RN [facility] ED COVID Home O2 Follow-up: This RN CM contacted pt via phone for follow-up. Pt states he is feeling the same and states he has been having difficulty breathing. Pt states he has been wearing his O2 continuously. When asked at what liter flow he states I may have turned it up, I don't know. Pt unable to state what his PO readings have been. Pt states he has remained febrile with temp 102-103 and states the Tylenol curbs it a little bit is all. Pt then reported he is at the hospital for evaluation. Noted pt to be a registered ED patient at this time. Will monitor for need for continued follow-up. Catherine Britton RN CM
== END 2021-04-19 19:08 | disposition home or self-care (01) ==
PROVIDERS: Emergency Provider Student in an Organized Health Care Education/Training Program; PCP Family Medicine
DX: U07.1 COVID-19 (principal); J12.82 Pneumonia due to coronavirus disease 2019; R09.02 Hypoxemia; M06.9 Rheumatoid arthritis, unspecified; E66.9 Obesity, unspecified
CPT/HCPCS: 71045; 99283; A4216

== ENCOUNTER 2021-04-23 10:20 | Inpatient (IN) | payer OTHER, SELFPAY ==
[2021-04-23] VITALS (22 sets, daily range): BP systolic 110–155; BP diastolic 58–94; PULSE 70–99; RESP 16–37; TEMP 36.7–38; O2SAT 72–98; BMI 32.8; BMI 31.1
--- NOTE | 2021-04-23 10:41 | CT_ITS ---
STUDY: CTA CHEST REASON FOR EXAM: Male, 56 years old. Sob RADIATION DOSAGE (If Supplied By Facility): CTDIvol = ( 12.64 ) mGy, DLP = ( 487.84 ) mGycm TECHNIQUE: The examination was performed with the intravenous administration of IV 100mL [id number]-370. Post-processing of the angiographic images was performed, with multiplanar reformation and 3D reconstruction. Individualized dose optimization techniques were used for this CT. COMPARISON: Comparison is made with prior chest radiograph dated 04/19/[address] scan of the thorax dated 05/03/2019. FINDINGS: Small benign-appearing bilateral axillary lymph nodes. Normal enhancement of the main pulmonary artery and right and left pulmonary arteries. Normal enhancement of the bilateral peripheral pulmonary arteries. There is no demonstrated pulmonary embolism. Normal thoracic aorta and visualized great vessels. There is no demonstrated aortic dissection. Normal heart and pericardium. There are visualized mediastinal lymph nodes, which are within normal size limits, and with normal morphology. Normal hilar regions. Normal visualized trachea and bronchi. The lungs are well expanded. Diffuse bilateral infiltrates involving both upper and lower lobes worse in the lower lobes of both lungs. Normal pleura. Normal chest wall structures. There are degenerative changes of thoracic spine. There is a 2.7 cm x 2.8 cm cyst in the left lobe of the liver. CT/CTA Chest W/WO Contrast IMPRESSION: Diffuse bilateral pulmonary infiltrates. Covid pneumonitis should be ruled out. No evidence of pulmonary embolism. Electronically Signed: Reza Chowdhury MD at 11:30 EDT , Service support ,
--- NOTE | 2021-04-23 10:44 | EDS_ITS ---
HPI History of Present Illness Chief Complaint: Shortness of Breath Informant: patient Onset/Context/Timing Onset: Weeks Context: Gradual Onset Current Severity: Moderate Maximum Severity: Moderate Narrative Narrative: Patient presents secondary to increased shortness of breath. Patient was diagnosed with Covid approximately 2 weeks ago. He is on home oxygen at 2 L. In spite of this he states that his sats are 89 when he sits at rest and drop into the 70s with exertion. He has had some burning sensation in his chest. No vomiting or diarrhea. He continues to have fever and chills. PFSH PFSH Medical History Allergies BPH associated with nocturia Cough Dermatitis Encounter for screening for COVID-19 Erectile dysfunction Obesity Rheumatoid arthritis Medical History no medical history Home Medications meloxicam 15 mg PO DAILY 04/18/21 [History Last Taken Unknown] Allergy/AdvReac Type Severity Reaction Status Date / Time No Known Allergies Allergy Verified 04/19/21 15:17 Family History Father Arthritis Diabetes Hypertension Heart disease High cholesterol Prostate cancer Bone cancer Mother Lymphoma Surgical History S/P rhinoplasty S/P tonsillectomy Social History Smoking Status: Never smoker second hand exposure: No alcohol intake: current alcohol intake frequency: holidays/special occasions only substance use type: does not use caffeine: No what type of physical activity do you participate in: none frequency: does not exercise seatbelt use: always ROS ROS ED Constitutional Constitutional ED: Reports chills and fever(s) Eyes Eyes: Denies change in vision ENT ENT ED: Denies sore throat Cardiovascular Cardiovascular: Reports chest pain Respiratory/Chest Respiratory/Chest: Reports cough and dyspnea Gastrointestinal Gastrointestinal: Denies diarrhea, nausea or vomiting Genitourinary Genitourinary ED: Denies dysuria Musculoskeletal Musculoskeletal: Reports myalgias; Denies back pain Integumentary Denies rash Neurologic Neurologic: Reports weakness; Denies headache(s) Allergic/Immunologic Allergic/Immunologic ED: Denies urticaria EXAM Physical Exam Const Vital Signs: 04/23/21 10:21 04/23/21 10:40 04/23/21 10:42 Temperature 98.3 F Temperature Source Temporal Pulse Rate 91 83 Respiratory Rate 28 H 26 H Respiratory Effort Short of Breath Respiratory Depth Normal Respiratory Pattern Tachypnea Blood Pressure 134/67 H Blood Pressure Mean 89 Pulse Ox 89 90 Oxygen Delivery Method Nasal Cannula Nasal Cannula Nasal Cannula Oxygen Flow Rate (L/min) 2 4 2 04/23/21 11:38 04/23/21 12:21 Temperature 100.4 F H Temperature Source Oral Pulse Rate 81 85 Respiratory Rate 32 H 31 H Respiratory Effort Respiratory Depth Respiratory Pattern Blood Pressure 136/76 H 122/58 H Blood Pressure Mean 96 79 Pulse Ox 94 91 Oxygen Delivery Method Nasal Cannula Nasal Cannula Oxygen Flow Rate (L/min) 4 4 Positive well nourished and well developed General Appearance ED: well developed HEENT Reports normocephalic and head/scalp atraumatic Eyes PERRL and EOMs intact bilaterally Neck supple Chest Wall inspection of chest normal and palpation of chest normal Resp normal respiratory effort and clear to auscultation bilaterally Cardio regular rate and regular rhythm GI normal to inspection, nondistended, normoactive bowel sounds and non-tender Palpation: soft Extremity normal to inspection Neuro oriented x3 and no sensory deficits noted Sensorium / Orientation: alert Motor Exam: strength 5/5 throughout Psych mental status grossly normal Skin no rashes or lesions noted MDM MDM MDM Narrative Medical decision making narrative: Patient on 4 L nasal cannula at the time of my exam and satting 91%. Lab work and CTA of the chest obtained. Lab Data Attestation: I reviewed the patient's lab results. Labs: Laboratory Results - last 24 hr 04/23/21 04/23/21 04/23/21 10:55 10:55 10:55 WBC 6.8 RBC 4.64 Hgb 14.0 Hct 41.9 MCV 90.3 MCH 30.2 MCHC 33.4 RDW Std Deviation 41.1 RDW Coeff of Ede 12.4 Plt Count 215 MPV 10.7 Immature Gran % (Auto) 0.600 Neut % (Auto) 86.8 H Lymph % (Auto) 9.5 L [place] % (Auto) 3.0 Eos % (Auto) 0.0 Baso % (Auto) 0.1 Absolute Neuts (auto) 5.9 Absolute Lymphs (auto) 0.64 L Nucleated RBC % 0 Sodium 137 Potassium 4.9 Chloride 101 Carbon Dioxide 32.0 Anion Gap 4 L BUN 15 Creatinine 1.13 Estim Creat Clear Calc 75.89 Est GFR (MDRD) Af Amer 86 Est GFR (MDRD) Non-Af 71 BUN/Creatinine Ratio 13.3 Glucose 113 H Lactic Acid 1.3 Calcium 8.7 Total Bilirubin 0.60 AST 105 H ALT 104 H Alkaline Phosphatase 82 Troponin I High Sens 11 Total Protein 7.4 Albumin 2.5 L Globulin 4.9 H Albumin/Globulin Ratio 0.5 L Radiography Diagnostic Testing: Radiology Impression Chest CTA 04/23/21 10:41 IMPRESSION: Diffuse bilateral pulmonary infiltrates. Covid pneumonitis should be ruled out. No evidence of pulmonary embolism. Electronically Signed: Reza Chowdhury MD at 11:30 EDT , Service support , Treatment and Re-Evaluation Comments:: Blood work is largely unremarkable. CTA reveals bilateral infiltrates but no evidence of PE. Patient remains quite tachypneic with respiratory rates in the 30s. Patient has been home with home oxygen and continued to desat in spite of this. He is already completed a course of Decadron. I will speak with hospitalist regarding admission and ID evaluation. Discharge Plan Triage Chief Complaint: Shortness of Breath ED Provider: Carmen Almanzar Dx/Rx/DC Orders Clinical Impression: COVID-19, Respiratory failure Prescriptions: No Action meloxicam 15 mg tablet 15 mg PO DAILY RF: 0 Primary Care Provider: Speedy Jolly Referrals: Speedy Jolly MD [Primary Care Provider] - Disposition Disposition: Acute Care Hospital [facility]
[2021-04-23 11:09] LABS: Absolute Lymphocyte Count 0.64 X10^3/uL (0.83-4.51); Absolute Neutrophil Count 5.9 X10^3/uL (2.0-7.7); Basophil# 0.01 X10^3/uL; Basophil% 0.1 % (0-1); Hematocrit 41.9 % (40-54); Lymphocyte # 0.64 X10^3/ul (0.83-4.51); Lymphocyte % 9.5 % (19-41); Mean Corp Hgb Conc 33.4 g/dL (32-36); Mean Corpuscular Hgb 30.2 pg (27.0-32.0); Mean Corpuscular Volume 90.3 fL (80-94); Mean Platelet Vol. 10.7 fl (6.2-12.0); NRBC Flagged by Analyzer 0 % (0-5); Neutrophil # 5.87 X10^3/uL (2.7-7.7); Neutrophil % 86.8 % (47-70); Platelet Count 215 K/mm3 (150-450); RBC Distribution Width CV 12.4 % (11.6-14.6); RBC Distribution Width SD 41.1 fl (35.1-43.9); Red Blood Count 4.64 M/mm3 (4.6-6.2); White Blood Count 6.8 K/mm3 (4.4-11.0)
[2021-04-23 11:36] LABS: ALB/GLOB Ratio 0.5 RATIO (0.9-2.4); AST(SGOT) 105 U/L (15-37); Alanine Aminotransfer ALT/SGPT 104 U/L (16-61); Albumin, Serum 2.5 g/dL (3.2-5.0); Alkaline Phosphatase 82 U/L (45-117); Anion Gap 4 (5-15); BUN 15 mg/dL (7-18); BUN/Creat Ratio 13.3 RATIO (10-20); Calcium,Total 8.7 mg/dL (8.5-10.1); Chloride 101 mmol/L (98-107); Creatinine, Serum 1.13 mg/dL (0.70-1.30); EST Glomerular Filtration Rate 71 mL/min (>60); Est Glom Filt Rate - Afr Amer 86 mL/min (>60); Estimated Creatinine Clearance 75.89 ml/min; Globulin 4.9 g/dL (2.2-4.2); Glucose 113 mg/dL (74-106); Potassium 4.9 mmol/L (3.5-5.1); Protein, Total 7.4 g/dL (6.4-8.2); Sodium Level 137 mmol/L (136-145); Troponin-I HS 11 pg/mL (3.0-78.0)
[2021-04-23 11:39] LABS: Lactic Acid 1.3 mmol/L (0.4-1.9)
--- NOTE | 2021-04-23 14:07 | HP.PCM.HOS_ITS ---
HPI - General General Date of Admission: 04/23/21 Date of Service: 04/23/21 Chief Complaint: Progressive shortness of breath HPI Narrative LIYAH HIGGINBOTHAM, is a 56 M who presents with progressive shortness of breath ongoing for 2 weeks. Patient was diagnosed with Covid from 04/14/21. He was seen again in the emergency room on 04/19/21. At the time he had hypoxia that improved with 2 L of oxygen. He was discharged on dexamethasone. Patient comes in with progressive shortness of breath, persistent fevers, poor appetite, on generalized weakness. He denies any diarrhea or chest pain. He is unvaccinated. His vitals in the ED showed progressive increase in oxygen requirement from 4 L to 13 L. Admitting blood work was unremarkable except for elevated D-dimer. CTA of the chest showed diffuse bilateral pulmonary infiltrates but no acute PE PFSH Medical History Allergies BPH associated with nocturia Cough Dermatitis Encounter for screening for COVID-19 Erectile dysfunction Obesity Rheumatoid arthritis Medical History no medical history Home Medications meloxicam 15 mg PO DAILY 04/18/21 [History Last Taken 10 Days Ago ~04/13/21] dexamethasone 6 mg PO DAILY 04/23/21 [History Last Taken 04/22/21] ondansetron 4 mg PO Q8H PRN 04/23/21 [History Last Taken Unknown] Allergy/AdvReac Type Severity Reaction Status Date / Time No Known Allergies Allergy Verified 04/19/21 15:17 Family History Father Arthritis Diabetes Hypertension Heart disease High cholesterol Prostate cancer Bone cancer Mother Lymphoma Surgical History S/P rhinoplasty S/P tonsillectomy Social History Smoking Status: Never smoker second hand exposure: No alcohol intake: current alcohol intake frequency: holidays/special occasions only substance use type: does not use caffeine: No what type of physical activity do you participate in: none frequency: does not exercise seatbelt use: always ROS ROS Narrative Constitutional: Reports: Malaise, Weakness, Fatigue, fever and chills, Anorexia, denies: Night Sweats, Weight Change Eyes: Denies: Blurred vision, Cataracts, Conjunctivae Inflammation, Pain, Redness, Vision Change HEENT: Denies: Difficulty Hearing, Difficulty Swallowing, Head Aches, Hearing Changes, Sinus Congestion, Sinus Drainage Cardiovascular: Denies: Chest Pain, Orthopnea, Palpitations Respiratory: See HPI Gastrointestinal: Denies: Abdominal Pain, Nausea, Vomiting Genitourinary: Denies: Dysuria Musculoskeletal: Denies: Joint Pain, Joint stiffness, Joint swelling, Joint Tenderness Skin: Denies: Rash, Wounds Neurological: Denies: Numbness, Tingling, Focal weakness Vital Signs Vital Signs Vital Signs: 04/23/21 10:21 04/23/21 10:40 04/23/21 10:42 Temperature 98.3 F Temperature Source Temporal Pulse Rate 91 83 Respiratory Rate 28 H 26 H Respiratory Effort Short of Breath Respiratory Depth Normal Respiratory Pattern Tachypnea Blood Pressure 134/67 H Blood Pressure Mean 89 Pulse Ox 89 90 Oxygen Delivery Method Nasal Cannula Nasal Cannula Nasal Cannula Oxygen Flow Rate (L/min) 2 4 2 04/23/21 11:38 04/23/21 12:21 Temperature 100.4 F H Temperature Source Oral Pulse Rate 81 85 Respiratory Rate 32 H 31 H Respiratory Effort Respiratory Depth Respiratory Pattern Blood Pressure 136/76 H 122/58 H Blood Pressure Mean 96 79 Pulse Ox 94 91 Oxygen Delivery Method Nasal Cannula Nasal Cannula Oxygen Flow Rate (L/min) 4 4 Weight Weight: 106.594 kg Body Mass Index (BMI) 32.8 Physical Exam Narrative Physical exam: General: Alert, Oriented x3, Cooperative, in moderate respiratory distress, moderately dehydrated, on 5 L of oxygen HEENT: Atraumatic Oral: Dry oral mucosa, for tongue Neck: Supple Lungs: Diminished to auscultation, crackles at the bases Cardiovascular: HS I+II, regular, no murmurs Abdomen: Bowel Sounds Present, Soft, Non Tender Extremities: No edema Results Lab / Micro Data Result Diagrams: 04/23/21 10:55 04/23/21 10:55 Labs: Laboratory Results - last 24 hr 04/23/21 10:55: WBC 6.8, RBC 4.64, Hgb 14.0, Hct 41.9, MCV 90.3, MCH 30.2, MCHC 33.4, RDW Std Deviation 41.1, RDW Coeff of Ede 12.4, Plt Count 215, MPV 10.7, Immature Gran % (Auto) 0.600, Neut % (Auto) 86.8 H, Lymph % (Auto) 9.5 L, [place] % (Auto) 3.0, Eos % (Auto) 0.0, Baso % (Auto) 0.1, Absolute Neuts (auto) 5.9, Absolute Lymphs (auto) 0.64 L, Nucleated RBC % 0 04/23/21 10:55: Sodium 137, Potassium 4.9, Chloride 101, Carbon Dioxide 32.0, Anion Gap 4 L, BUN 15, Creatinine 1.13, Estim Creat Clear Calc 75.89, Est GFR (MDRD) Af Amer 86, Est GFR (MDRD) Non-Af 71, BUN/Creatinine Ratio 13.3, Glucose 113 H, Calcium 8.7, Total Bilirubin 0.60, AST 105 H, ALT 104 H, Alkaline Phosphatase 82, Troponin I High Sens 11, Total Protein 7.4, Albumin 2.5 L, Globu francis 4.9 H, Albumin/Globulin Ratio 0.5 L 04/23/21 10:55: Lactic Acid 1.3 Radiology Impression Chest CTA 04/23/21 10:41 IMPRESSION: Diffuse bilateral pulmonary infiltrates. Covid pneumonitis should be ruled out. No evidence of pulmonary embolism. Electronically Signed: Reza Chowdhury MD at 11:30 EDT , Service support , Assessment & Plan Assessment/Plan (1) COVID-19: (2) Respiratory failure: QUALIFIERS: Chronicity: acute Respiratory failure complication: hypoxia Qualified Code(s): J96.01 - Acute respiratory failure with hypoxia (3) Rheumatoid arthritis: QUALIFIERS: Rheumatoid arthritis location: multiple sites Rheumatoid factor presence: with rheumatoid factor Qualified Code(s): M05.79 - Rheumatoid arthritis with rheumatoid factor of multiple sites without organ or systems involvement (4) BPH associated with nocturia: PLAN: 1. Acute hypoxic respiratory failure secondary to acute COVID-19 pneumonia Patient has had symptoms ongoing for 2 weeks; patient is unvaccinated Recently discharged from the ED on 2 L of oxygen Oxygen requirements now at 13 L CTA of the chest is negative for acute PE; showed bilateral infiltrates Will continue on dexamethasone, consult ID and pulmo Urine Legionella and streptococcal antigen, sputum cultures Will start empirically on ceftriaxone and azithromycin Follow-up on blood cultures, encourage use of incentive spirometer 2. Rheumatoid arthritis, on meloxicam Would hold meloxicam for now 3. DVT prophylaxis with Lovenox I discussed and explained in details the various types of CODE STATUS-full code, DNR CCA, DNR CC. Patient chose Full code Time spent discussing CODE STATUS 16 minutes Charges/Coding Visit Charges Inpatient E&M: 74483 Init Hosp L3 Procedures Hospitalists Procedures: 33415 Advncd Care Plan 30 Min
--- NOTE | 2021-04-23 14:12 | NURSING ---
[facility] COVID, HYPOXIA
--- NOTE | 2021-04-23 14:36 | NURSING ---
ROOM 121
[2021-04-23] MEDS: Acetaminophen 500 MG Tablet 1000 MG PO (14:50)
[2021-04-23] MEDS: dexAMETHasone 4 MG Tablet 6 MG PO (14:50)
--- NOTE | 2021-04-23 14:57 | ED.RN ---
PT REPOSITIONED IN BED WHEN PULSE OX IN 70S. PULSE OX INCREASED TO 78%. O2 INCREASED TO 6L VIA N/C. PULSE OX INCREASED TO 85%. DR OROURKE NOTIFIED. PT PLACED ON HIGH FLOW NC BY RESP THERAPY
[2021-04-23 15:26] LABS: D-Dimer Quantitative (DVT/PE) 0.95 FEU/ug/m (0.27-0.49)
--- NOTE | 2021-04-23 15:49 | NURSING ---
ICU 6
--- NOTE | 2021-04-23 16:31 | NURSING ---
called nursing report to REBEL Rose in ICU for admission
[2021-04-23] MEDS: Ceftriaxone 1 GM/50 ML BAG IV (17:08)
[2021-04-23 17:52] LABS: BNP,B-Type NATRIURETIC PEPTIDE 38.5 pg/mL (0-100)
[2021-04-23] MEDS: Ipratropium/Albuterol Sulfate 3 ML AMPUL.NEB INHALATION (19:26)
[2021-04-23] MEDS: Enoxaparin 30 MG/0.3 ML Syringe SC (21:30)
[2021-04-24] VITALS (29 sets, daily range): BP systolic 97–177; BP diastolic 55–97; PULSE 52–88; RESP 14–35; TEMP 36.6–37.2; O2SAT 80–98
[2021-04-24 04:18] LABS: Absolute Lymphocyte Count 0.56 X10^3/uL (0.83-4.51); Absolute Neutrophil Count 5.6 X10^3/uL (2.0-7.7); Basophil# 0.01 X10^3/uL; Basophil% 0.2 % (0-1); Hematocrit 40.1 % (40-54); Hemoglobin 13.3 g/dL (13.0-16.5); Lymphocyte # 0.56 X10^3/ul (0.83-4.51); Lymphocyte % 8.7 % (19-41); Mean Corp Hgb Conc 33.2 g/dL (32-36); Mean Corpuscular Hgb 30.6 pg (27.0-32.0); Mean Corpuscular Volume 92.2 fL (80-94); Mean Platelet Vol. 10.1 fl (6.2-12.0); Monocyte% 3.1 % (0-10); NRBC Flagged by Analyzer 0 % (0-5); Neutrophil # 5.58 X10^3/uL (2.7-7.7); Neutrophil % 87.1 % (47-70); POSITIVE DIFFERENTIAL YES; Platelet Count 247 K/mm3 (150-450); RBC Distribution Width CV 12.2 % (11.6-14.6); Red Blood Count 4.35 M/mm3 (4.6-6.2); White Blood Count 6.4 K/mm3 (4.4-11.0)
[2021-04-24 04:48] LABS: ALB/GLOB Ratio 0.5 RATIO (0.9-2.4); AST(SGOT) 82 U/L (15-37); Alanine Aminotransfer ALT/SGPT 105 U/L (16-61); Albumin, Serum 2.4 g/dL (3.2-5.0); Alkaline Phosphatase 86 U/L (45-117); Anion Gap 8 (5-15); BUN 16 mg/dL (7-18); BUN/Creat Ratio 13.6 RATIO (10-20); Calcium,Total 8.7 mg/dL (8.5-10.1); Chloride 96 mmol/L (98-107); Creatinine, Serum 1.18 mg/dL (0.70-1.30); EST Glomerular Filtration Rate 67 mL/min (>60); Est Glom Filt Rate - Afr Amer 82 mL/min (>60); Estimated Creatinine Clearance 72.68 ml/min; Globulin 4.8 g/dL (2.2-4.2); Glucose 174 mg/dL (74-106); Potassium 4.7 mmol/L (3.5-5.1); Protein, Total 7.2 g/dL (6.4-8.2); Sodium Level 136 mmol/L (136-145)
[2021-04-24 05:04] LABS: Differential Indicated SCAN CRITERIA MET
[2021-04-24 05:20] LABS: Differential Comment SCANNED
--- NOTE | 2021-04-24 07:27 | PN.HOSP_ITS ---
Subjective Subjective Patient was admitted with shortness of breath, hypoxia, Covid diagnosed approximately 2 weeks ago. Was seen earlier in ER 2 times last week and was sent home on home oxygen and dexamethasone on 04/19. At that time patient was not very symptomatic. Diagnosed with COVID-19 on 04/14/21. Patient is symptomatic on Airvo 93% FiO2, 60 L/min flow rate Objective Data Objective Data Vital Signs: Vital Signs Temp Pulse Resp BP Pulse Ox 98.2 F 55 L 18 127/75 H 95 04/24/21 03:00 04/24/21 06:58 04/24/21 05:01 04/24/21 03:00 04/24/21 05:01 Oxygen Flow Rate (L/min) 12 Oxygen Delivery Method Nasal Cannula Weight: 231 lb 7.766 oz Body Mass Index (BMI) 31.1 Intake & Output: Intake and Output for Last 24 Hours 04/22/21 04/23/21 04/24/21 23:59 23:59 23:59 Intake Total 305 / 305 Output Total 350 / 350 Balance -45 / -45 Lab / Micro Data Result Diagrams: 04/24/21 04:00 04/24/21 04:00 Labs: Laboratory Results - last 24 hr 04/23/21 10:55: WBC 6.8, RBC 4.64, Hgb 14.0, Hct 41.9, MCV 90.3, MCH 30.2, MCHC 33.4, RDW Std Deviation 41.1, RDW Coeff of Ede 12.4, Plt Count 215, MPV 10.7, Immature Gran % (Auto) 0.600, Neut % (Auto) 86.8 H, Lymph % (Auto) 9.5 L, [place] % (Auto) 3.0, Eos % (Auto) 0.0, Baso % (Auto) 0.1, Absolute Neuts (auto) 5.9, Absolute Lymphs (auto) 0.64 L, Nucleated RBC % 0 04/23/21 10:55: Sodium 137, Potassium 4.9, Chloride 101, Carbon Dioxide 32.0, Anion Gap 4 L, BUN 15, Creatinine 1.13, Estim Creat Clear Calc 75.89, Est GFR (MDRD) Af Amer 86, Est GFR (MDRD) Non-Af 71, BUN/Creatinine Ratio 13.3, Glucose 113 H, Calcium 8.7, Total Bilirubin 0.60, AST 105 H, ALT 104 H, Alkaline Phosphatase 82, Troponin I High Sens 11, Total Protein 7.4, Albumin 2.5 L, Globulin 4.9 H, Albumin/Globulin Ratio 0.5 L 04/23/21 10:55: Lactic Acid 1.3 04/23/21 10:55: B-Natriuretic Peptide 38.5 04/23/21 15:05: D-Dimer Quant (PE/DVT) 0.95 H* 04/24/21 04:00: WBC 6.4, RBC 4.35 L, Hgb 13.3, Hct 40.1, MCV 92.2, MCH 30.6, MCHC 33.2, RDW Std Deviation 42.0, RDW Coeff of Ede 12.2, Plt Count 247, MPV 10.1, Immature Gran % (Auto) 0.900, Neut % (Auto) 87.1 H, Lymph % (Auto) 8.7 L, [place] % (Auto) 3.1, Eos % (Auto) 0.0, Baso % (Auto) 0.2, Absolute Neuts (auto) 5.6, Absolute Lymphs (auto) 0.56 L, Nucleated RBC % 0, Differential Comment SCANNED 04/24/21 04:00: Sodium 136, Potassium 4.7, Chloride 96 L, Carbon Dioxide 32.0, Anion Gap 8, BUN 16, Creatinine 1.18, Estim Creat Clear Calc 72.68, Est GFR (MDRD) Af Amer 82, Est GFR (MDRD) Non-Af 67, BUN/Creatinine Ratio 13.6, Glucose 174 H, Calcium 8.7, Total Bilirubin 0.40, AST 82 H, ALT 105 H, Alkaline Phosphatase 86, Total Protein 7.2, Albumin 2.4 L, Globulin 4.8 H, Albumin/Globulin Ratio 0.5 L Micro: Microbiology 04/23/21 17:30 Urine, Clean Catch Legionella Antigen - Final 04/23/21 17:30 Urine, Clean Catch Streptococcus pneumoniae Antigen (M - Final Radiography Diagnostic Testing: Radiology Impression Chest CTA 04/23/21 10:41 IMPRESSION: Diffuse bilateral pulmonary infiltrates. Covid pneumonitis should be ruled out. No evidence of pulmonary embolism. Electronically Signed: Reza Chowdhury MD at 11:30 EDT , Service support , Physical Exam Narrative General: Alert, Oriented x3, Cooperative HEENT: Atraumatic, PERRLA, EOMI, Normocephalic Oral: No Gingival or Mucosal Lesions/ Ulcerations Neck: Supple, No JVD, Negative Carotid Bruits Lungs: Air entry diminished in bilateral lungs. Bronchial breath sounds bilaterally. Bilateral crepitations. Tachypneic and hypoxic Cardiovascular: Regular rate, Regular Rhythm, Normal S1, Normal S2, No murmurs Abdomen: Bowel Sounds Present, Soft, Non Tender, Non-Distended : No renal angle tenderness. No suprapubic tenderness. Extremities: No edema, Capillary Refill Less than 3 Seconds Skin: No rashes, No breakdown Musculoskeletal: No Tenderness to Palpation of Joints or Extremities Neurological: Cranial nerves II-XII grossly intact, DTR 2+/4 and Symmetrical, Neuro grossly intact Psych/Mental Status: Normal Affect, Appropriate. Assessment & Plan Assessment/Plan (1) COVID-19: (2) Respiratory failure: QUALIFIERS: Chronicity: acute Respiratory failure complication: hypoxia Qualified Code(s): J96.01 - Acute respiratory failure with hypoxia (3) Rheumatoid arthritis: QUALIFIERS: Rheumatoid arthritis location: multiple sites Rheumatoid factor presence: with rheumatoid factor Qualified Code(s): M05.79 - Rheumatoid arthritis with rheumatoid factor of multiple sites without organ or systems involvement (4) BPH associated with nocturia: PLAN: 1. Acute hypoxic respiratory failure secondary to acute COVID-19 pneumonia: Covid test positive on 04/14. Patient is admitted in ICU. Currently pulse ox 80% FiO2 on 10 to 12 L of oxygen. Urinary antigens are negative. CT is suggestive of bilateral COVID-19 pneumonitis but not PE. Empirically on IV ceftriaxone and azithromycin. Discussed with ID Dr. Dev Wright. He approved for baricitinib. On 4 mg daily for 14 days. ALT AST mildly elevated. Monitor liver tests daily. 2. Rheumatoid arthritis, on meloxicam Would hold meloxicam for now 3. DVT prophylaxis with Lovenox I discussed and explained in details the various types of CODE STATUS-full code, DNR CCA, DNR CC. Patient chose Full code Time spent discussing CODE STATUS 16 minutes Charges/Coding Visit Charges Inpatient E&M: 21927 Subs Hosp L3
--- NOTE | 2021-04-24 07:43 | CON.PCM.CC_ITS ---
Assessment & Plan Assessment/Plan (1) Respiratory failure: QUALIFIERS: Chronicity: acute Respiratory failure complication: hypoxia Qualified Code(s): J96.01 - Acute respiratory failure with hypoxia (2) COVID-19: (3) Rheumatoid arthritis: QUALIFIERS: Rheumatoid arthritis location: multiple sites Rheumatoid factor presence: with rheumatoid factor Qualified Code(s): M05.79 - Rheumatoid arthritis with rheumatoid factor of multiple sites without organ or systems involvement (4) Obesity: PLAN: RECOMMENDATIONS: 1. Not a candidate for baricitinib or remdesivir given delayed presentation 2. Reinitiate Decadron therapy 3. Add zinc and vitamin C 4. Wean oxygen as tolerated 5. Encourage prone positioning, Acapella and incentive spirometer as tolerated 6. Agree with empiric antibiotics pending culture results IMPRESSIONS: 1. Acute hypoxic respiratory failure secondary to COVID-19 Unclear why patient continues to worsen. Secondary bacterial infection would be a concern. Patient has appropriately been placed on empiric antibiotics. I would continue these until cultures are negative. We will reinitiate patient on Decadron to complete 10 days. Patient also will be given vitamin C and zinc. Extensive conversation with the patient about the importance of prone positioning, Acapella and incentive spirometer. Patient would not be a candidate for baricitinib or Remdesivir given protracted presentation. Patient is open to intubation if necessary. 2. Rheumatoid arthritis/BPH/history of rhinoplasty/unvaccinated status Complicates care, management, recovery and prognosis. Monitor for epistaxis. Cannot exclude the need for Lucia catheter if symptoms persist. Agree with holding meloxicam during the acute phase. HPI Consult Data Date of Consult: 04/24/21 HPI Narrative HPI Narrative: LIYAH HIGGINBOTHAM is a 56 M, with past medical history listed below, who presents to [facility] on 04/23/2021 secondary to progressive shortness of breath. Patient reportedly started to have symptoms of body aches and cough 2 weeks ago and tested positive for COVID-19. Patient is unvaccinated. Patient was on 2 L nasal cannula at home, but had noted that his saturations were dropping into the 70s with exertion. Patient had also developed some burning in his chest and continues to have fevers and chills. No nausea, vomiting or diarrhea been reported. Patient does report decreased p.o. intake. In the ER, patient was afebrile, but required up to 4 L to maintain saturations and was tachypneic as high as 32 breaths/min. Patient did not have significant tachycardia or hypertension noted. Laboratory work-up was relatively unremarkable except for a mildly elevated AST and ALT. CTA of the chest showed bilateral pulmonary infiltrates with no evidence of PE. Given patient's desaturation, he was admitted for further evaluation. Patient denies any history of respiratory complications in the past. Patient has had a pulmonary function test showing mild restriction. Patient states he has used a nebulizer intermittently with acute illnesses, but does not carry a diagnosis of asthma. Patient denies ever smoking. No occupational exposures have been noted. Patient does report that his also received COVID-19, but she had been vaccinated that is now back to her baseline. Patient believes he was infected by his 9-year-old daughter from school. Patient denies any history of obstructive sleep apnea. Review of systems otherwise negative from a constitutional, HEENT, respiratory, cardiovascular, GI, genitourinary, musculoskeletal, skin, neurologic, psychiatric and hematologic system unless stated above. [facility] Medical History Allergies BPH associated with nocturia Cough Dermatitis Encounter for screening for COVID-19 Erectile dysfunction Obesity Rheumatoid arthritis Medical History no medical history Home Medications meloxicam 15 mg PO DAILY 04/18/21 [History Last Taken 10 Days Ago ~04/13/21] dexamethasone 6 mg PO DAILY 04/23/21 [History Last Taken 04/22/21] ondansetron 4 mg PO Q8H PRN 04/23/21 [History Last Taken Unknown] Allergy/AdvReac Type Severity Reaction Status Date / Time No Known Allergies Allergy Verified 04/19/21 15:17 Family History Father Arthritis Diabetes Hypertension Heart disease High cholesterol Prostate cancer Bone cancer Mother Lymphoma Surgical History S/P rhinoplasty S/P tonsillectomy Social History Smoking Status: Never smoker second hand exposure: No alcohol intake: current alcohol intake frequency: holidays/special occasions only substance use type: does not use caffeine: No what type of physical activity do you participate in: none frequency: does not exercise seatbelt use: always ROS ROS Narrative See HPI Physical Exam Const alert and oriented x3 General Appearance: cooperative, well developed, in distress Positive for moderate and appears older than stated age Nutritional Appearance: obese HEENT normocephalic, head/scalp atraumatic and moist oral mucous membranes Eyes PERRL and EOMs intact bilaterally Neck full ROM and no lymphadenopathy Chest inspection of chest normal Chest: symmetrical chest wall rise; Negative for crepitus Resp Effort and Inspection: tachypneic Auscultation: diminished lung sounds; Negative for rales, rhonchi or wheezes Percussion: Negative for dullness Cardio regular rate, regular rhythm, S1 normal heart sound, S2 normal heart sound, no murmurs, no rub and no gallops GI normal to inspection, nondistended, normoactive bowel sounds no CVA tenderness Extremity no clubbing, cyanosis or edema Skin no rashes or lesions noted Neuro oriented x3, CN's II-XII intact bilaterally, moves all extremities and no focal motor deficits Psych cooperative and affect normal Lab / Micro Data Result Diagrams: 04/24/21 04:00 04/24/21 04:00 Labs: Laboratory Results - last 24 hr 04/23/21 10:55: WBC 6.8, RBC 4.64, Hgb 14.0, Hct 41.9, MCV 90.3, MCH 30.2, MCHC 33.4, RDW Std Deviation 41.1, RDW Coeff of Ede 12.4, Plt Count 215, MPV 10.7, Immature Gran % (Auto) 0.600, Neut % (Auto) 86.8 H, Lymph % (Auto) 9.5 L, Sunflower % (Auto) 3.0, Eos % (Auto) 0.0, Baso % (Auto) 0.1, Absolute Neuts (auto) 5.9, Absolute Lymphs (auto) 0.64 L, Nucleated RBC % 0 04/23/21 10:55: Sodium 137, Potassium 4.9, Chloride 101, Carbon Dioxide 32.0, Anion Gap 4 L, BUN 15, Creatinine 1.13, Estim Creat Clear Calc 75.89, Est GFR (MDRD) Af Amer 86, Est GFR (MDRD) Non-Af 71, BUN/Creatinine Ratio 13.3, Glucose 113 H, Calcium 8.7, Total Bilirubin 0.60, AST 105 H, ALT 104 H, Alkaline Phosphatase 82, Troponin I High Sens 11, Total Protein 7.4, Albumin 2.5 L, Globulin 4.9 H, Albumin/Globulin Ratio 0.5 L 04/23/21 10:55: Lactic Acid 1.3 04/23/21 10:55: B-Natriuretic Peptide 38.5 04/23/21 15:05: D-Dimer Quant (PE/DVT) 0.95 H* 04/24/21 04:00: WBC 6.4, RBC 4.35 L, Hgb 13.3, Hct 40.1, MCV 92.2, MCH 30.6, MCHC 33.2, RDW Std Deviation 42.0, RDW Coeff of Ede 12.2, Plt Count 247, MPV 10.1, Immature Gran % (Auto) 0.900, Neut % (Auto) 87.1 H, Lymph % (Auto) 8.7 L, Sunflower % (Auto) 3.1, Eos % (Auto) 0.0, Baso % (Auto) 0.2, Absolute Neuts (auto) 5.6, Absolute Lymphs (auto) 0.56 L, Nucleated RBC % 0, Differential Comment SCANNED 04/24/21 04:00: Sodium 136, Potassium 4.7, Chloride 96 L, Carbon Dioxide 32.0, Anion Gap 8, BUN 16, Creatinine 1.18, Estim Creat Clear Calc 72.68, Est GFR (MDRD) Af Amer 82, Est GFR (MDRD) Non-Af 67, BUN/Creatinine Ratio 13.6, Glucose 174 H, Calcium 8.7, Total Bilirubin 0.40, AST 82 H, ALT 105 H, Alkaline Phosphatase 86, Total Protein 7.2, Albumin 2.4 L, Globulin 4.8 H, Albumin/Glob ulin Ratio 0.5 L Micro: Microbiology 04/23/21 17:30 Urine, Clean Catch Legionella Antigen - Final 04/23/21 17:30 Urine, Clean Catch Streptococcus pneumoniae Antigen (M - Final Radiology Impression Chest CTA 04/23/21 10:41 IMPRESSION: Diffuse bilateral pulmonary infiltrates. Covid pneumonitis should be ruled out. No evidence of pulmonary embolism. Electronically Signed: Reza Chowdhury MD at 11:30 EDT , Service support , Charges/Coding Visit Charges Inpatient E&M: 52302 Init Hosp L3
[2021-04-24] MEDS: Ipratropium/Albuterol Sulfate 3 ML AMPUL.NEB INHALATION (07:56)
[2021-04-24] MEDS: dexAMETHasone 4 MG Tablet 6 MG PO (07:56)
[2021-04-24] MEDS: Ceftriaxone 1 GM/50 ML BAG IV (07:56)
[2021-04-24] MEDS: Enoxaparin 30 MG/0.3 ML Syringe SC ×2 (07:56→21:01)
[2021-04-24] MEDS: 0.9% Saline Lock 10 ML Syringe IV (07:57)
[2021-04-24] MEDS: Ascorbic Acid 500 MG Tablet 1000 MG PO ×2 (08:50→15:55)
[2021-04-24] MEDS: Furosemide 20 MG/2 ML VIAL IV (09:58)
[2021-04-24] MEDS: Ondansetron 4 MG/2 ML Vial IV (10:40)
--- NOTE | 2021-04-24 15:47 | CASEMGMT ---
REBEL GAGNON Assessment: Face to Face was attempted with patient for initial transition planning/care coordination assessment but pt was having difficulty hearing d/t high O2 needs and requested this RN CM speak with his . This RN CM phoned pt's and introduced self and role at [facility], she voiced understanding. Care providers, pharmacy, and demographics verified. PCP: Shanae Specialists: [facility], cannot recall physician's name specifically Preferred Pharmacy: [facility] Insurance: MMO Prescription Benefit: yes Living Will/HPOA: No/No LNOK: Pt's Margaret Living Arrangements: Pt lives with his and children in a single story home with 3 steps to enter. Pt has been independent with all ADLs prior to admission. Transportation: Pt drives. His is able to assist with driving if needed. DME: pt currently has home O2 from [employer] at 2l/min. Pt's reports having a concentrator and one tank which pt has not used except to get home from the ED and to return to the ED. Pt's denies any other DME currently. HHC/SNF: Pt has not required HHC or SNF services previously. Plan: Return home with assistance of his family and continuation of home O2 from [employer]. Will watch for change in O2 needs at discharge and will facilitate as needs determined. Catherine Britton RN CM
[2021-04-25] VITALS (37 sets, daily range): BP systolic 99–147; BP diastolic 59–91; PULSE 46–85; RESP 14–37; TEMP 36–36.7; O2SAT 84–98
[2021-04-25] MEDS: 0.9% Saline Lock 10 ML Syringe IV ×2 (05:00→08:00)
--- NOTE | 2021-04-25 06:29 | PN.CC_ITS ---
Assessment & Plan Assessment/Plan (1) Respiratory failure: QUALIFIERS: Chronicity: acute Respiratory failure complication: hypoxia Qualified Code(s): J96.01 - Acute respiratory failure with hypoxia (2) COVID-19: (3) Rheumatoid arthritis: QUALIFIERS: Rheumatoid arthritis location: multiple sites Rheumatoid factor presence: with rheumatoid factor Qualified Code(s): M05.79 - Rheumatoid arthritis with rheumatoid factor of multiple sites without organ or systems involvement (4) Obesity: PLAN: RECOMMENDATIONS: 1. Continue BiPAP therapy and wean FiO2 for saturations greater than 90%. 2. Attempt to wean to Airvo heated high flow today, if feasible. 3. Continue empiric antimicrobials for now. 4. Continue Lovenox, Decadron and baricitinib as ordered. 5. Continue zinc and vitamin C as scheduled. 6. Continue scheduled bronchodilator therapy. 7. Awake prone positioning was encouraged. IMPRESSIONS: 1. Acute hypoxic respiratory failure secondary to COVID-19 pneumonia The patient initially presented to the hospital with 2 weeks of progressive symptoms. Unfortunately, the patient is outside of the window to receive remdesivir. His oxygenation status remains quite tenuous. However concerns for secondary bacterial infection, antibiotics will be continued. The patient has been maintained on BiPAP, which will be weaned as tolerated. Attempt will be made today to transition the patient to heated high flow, if feasible. In the interim, the patient will be continued on Lovenox, Decadron and baricitinib. Continue vitamin C and zinc is scheduled. Continue bronchodilator therapy. Awake prone positioning was encouraged. 2. Rheumatoid arthritis/BPH/history of rhinoplasty/unvaccinated status Complicates care, management, recovery and prognosis. Continue supportive measures as noted above. The patient is high risk for the need for intubation in the next 24 hours. TIME: 34 minutes of critical care time, independent of procedures, was spent addressing the patient's acute hypoxemic respiratory failure secondary to COVID- 19 pneumonia, review of all data and collaboration with care team. ([id number]) Subjective Subjective The patient was seen and examined at the bedside this morning. Events from the last 24 hours have been reviewed. The patient is currently afebrile, hemodynamically stable and maintaining appropriate oxygen saturations on BiPAP with an FiO2 requirement of 75%. The patient has remained in prone position all night long. He is currently documented to be overall net -600 mL for the hospital admission. He remains on antimicrobials, Decadron, prophylactic Lovenox and baricitinib. Objective Data Objective Data The patient's most recent lab work, culture data and imaging studies have all been personally reviewed. Blood cultures have demonstrated no growth to date. Strep and urine Legionella antigens were negative. Sputum culture appears to be normal respiratory anna. Vital Signs: Vital Signs Temp Pulse Resp BP Pulse Ox 97.7 F L 47 L 27 H 133/77 H 92 04/25/21 04:00 04/25/21 06:00 04/25/21 06:00 04/25/21 06:00 04/25/21 06:00 Oxygen Flow Rate (L/min) 60 Oxygen Delivery Method Bi-pap Weight: 106 kg Body Mass Index (BMI) 31.1 Intake & Output: Intake and Output for Last 24 Hours 04/23/21 04/24/21 04/25/21 23:59 23:59 23:59 Intake Total 305 / 305 445 / 685 240 / 240 Output Total 350 / 350 950 / 1250 300 / 300 Balance -45 / -45 -505 / -565 -60 / -60 Lab / Micro Data Attestation: I reviewed the patient's lab results. Result Diagrams: 04/24/21 04:00 04/25/21 04:55 Micro: Microbiology 04/23/21 21:31 Sputum, Expectorated/Coughed Gram Stain - Final 04/23/21 21:31 Sputum, Expectorated/Coughed Respiratory Culture - Preliminary Appears to be normal respiratory anna. Further studies to follow. 04/23/21 17:30 Urine, Clean Catch Legionella Antigen - Final 04/23/21 17:30 Urine, Clean Catch Streptococcus pneumoniae Antigen (M - Final Physical Exam Const alert General Appearance: cooperative, ill appearing and on BiPAP Nutritional Appearance: obese HEENT normocephalic and head/scalp atraumatic Eyes PERRL, EOMs intact bilaterally and conjunctivae normal Neck supple General: trachea midline Chest inspection of chest normal Resp Effort and Inspection: tachypneic Auscultation: diminished lung sounds; Negative for rales, rhonchi or wheezes Cardio S1 normal heart sound and S2 normal heart sound Rate: bradycardia GI normal to inspection, nondistended, normoactive bowel sounds Extremity no clubbing, cyanosis or edema Skin no rashes or lesions noted Neuro moves all extremities and no focal motor deficits Psych cooperative and affect normal Charges/Coding Procedures Hospitalists Procedures: [id number] Critial Care 1st Hr
[2021-04-25] MEDS: Ipratropium/Albuterol Sulfate 3 ML AMPUL.NEB INHALATION ×3 (07:32→18:59)
[2021-04-25] MEDS: Enoxaparin 30 MG/0.3 ML Syringe SC ×2 (08:00→20:05)
[2021-04-25] MEDS: dexAMETHasone 4 MG Tablet 6 MG PO (08:00)
[2021-04-25] MEDS: Ascorbic Acid 500 MG Tablet 1000 MG PO ×2 (08:00→16:03)
[2021-04-25] MEDS: Ceftriaxone 1 GM/50 ML BAG IV (08:01)
[2021-04-25] MEDS: CHLORHEXIDINE GLUC 2% CLOTH 1 EACH TOWELETTE TOPICAL (08:01)
[2021-04-25 08:16] LABS: ALB/GLOB Ratio 0.5 RATIO (0.9-2.4); AST(SGOT) 87 U/L (15-37); Alanine Aminotransfer ALT/SGPT 160 U/L (16-61); Albumin, Serum 2.4 g/dL (3.2-5.0); Alkaline Phosphatase 79 U/L (45-117); Anion Gap 5 (5-15); BUN 21 mg/dL (7-18); BUN/Creat Ratio 22.3 RATIO (10-20); Chloride 99 mmol/L (98-107); Creatinine, Serum 0.94 mg/dL (0.70-1.30); EST Glomerular Filtration Rate 88 mL/min (>60); Est Glom Filt Rate - Afr Amer 106 mL/min (>60); Estimated Creatinine Clearance 91.23 ml/min; Glucose 169 mg/dL (74-106); Potassium 4.6 mmol/L (3.5-5.1); Protein, Total 7.4 g/dL (6.4-8.2); Sodium Level 135 mmol/L (136-145)
[2021-04-25] MEDS: Ondansetron 4 MG/2 ML Vial IV (10:52)
--- NOTE | 2021-04-25 12:44 | PN.HOSP_ITS ---
Subjective Subjective Patient is short of breath, tachypneic on BiPAP at night. Objective Data Objective Data Vital Signs: Vital Signs Temp Pulse Resp BP Pulse Ox 97.0 F L 61 30 H 112/79 95 04/25/21 12:00 04/25/21 12:00 04/25/21 12:00 04/25/21 12:00 04/25/21 12:00 Oxygen Flow Rate (L/min) 60 Oxygen Delivery Method Bi-pap Weight: 233 lb 11.04 oz Body Mass Index (BMI) 31.1 Intake & Output: Intake and Output for Last 24 Hours 04/23/21 04/24/21 04/25/21 23:59 23:59 23:59 Intake Total 305 / 305 445 / 685 785 / 785 Output Total 350 / 350 950 / 1250 1250 / 1250 Balance -45 / -45 -505 / -565 -465 / -465 Lab / Micro Data Result Diagrams: 04/24/21 04:00 04/25/21 04:55 Labs: Laboratory Results - last 24 hr 04/25/21 04:55: Sodium 135 L, Potassium 4.6, Chloride 99, Carbon Dioxide 31.0, Anion Gap 5, BUN 21 H, Creatinine 0.94, Estim Creat Clear Calc 91.23, Est GFR (MDRD) Af Amer 106, Est GFR (MDRD) Non-Af 88, BUN/Creatinine Ratio 22.3 H, Glucose 169 H, Calcium 9.0, Total Bilirubin 0.60, AST 87 H, ALT 160 H, Alkaline Phosphatase 79, Total Protein 7.4, Albumin 2.4 L, Globulin 5.0 H, Albumin/Globulin Ratio 0.5 L Micro: Microbiology 04/23/21 12:18 Blood Culture (Wb) - Anticubital Left Blood Culture - Preliminary No growth in 48 hours. 04/23/21 10:55 Blood Culture (Wb) - Anticubital Right Blood Culture - Pr eliminary No growth in 48 hours. 04/23/21 21:31 Sputum, Expectorated/Coughed Gram Stain - Final 04/23/21 21:31 Sputum, Expectorated/Coughed Respiratory Culture - Pr eliminary Appears to be normal respiratory anna. Further studies to follow. 04/23/21 17:30 Urine, Clean Catch Legionella Antigen - Final 04/23/21 17:30 Urine, Clean Catch Streptococcus pneumoniae Antigen (M - Final Physical Exam Narrative General: Alert, Oriented x3, Cooperative HEENT: Atraumatic, PERRLA, EOMI, Normocephalic Oral: No Gingival or Mucosal Lesions/ Ulcerations Neck: Supple, No JVD, Negative Carotid Bruits Lungs: Air entry diminished in bilateral lungs. Tachypneic and hypoxic Cardiovascular: Regular rate, Regular Rhythm, Normal S1, Normal S2, No murmurs Abdomen: Bowel Sounds Present, Soft, Non Tender, Non-Distended : No renal angle tenderness. No suprapubic tenderness. Extremities: No edema, Capillary Refill Less than 3 Seconds Skin: No rashes, No breakdown Musculoskeletal: No Tenderness to Palpation of Joints or Extremities Neurological: Cranial nerves II-XII grossly intact, DTR 2+/4 and Symmetrical, Neuro grossly intact Psych/Mental Status: Normal Affect, Appropriate. Assessment & Plan Assessment/Plan (1) COVID-19: (2) Respiratory failure: QUALIFIERS: Chronicity: acute Respiratory failure complication: hypoxia Qualified Code(s): J96.01 - Acute respiratory failure with hypoxia (3) Rheumatoid arthritis: QUALIFIERS: Rheumatoid arthritis location: multiple sites Rheumatoid factor presence: with rheumatoid factor Qualified Code(s): M05.79 - Rheumatoid arthritis with rheumatoid factor of multiple sites without organ or systems involvement (4) BPH associated with nocturia: PLAN: 1. Acute hypoxic respiratory failure secondary to acute COVID-19 pneumonia: Covid test positive on 04/14. Patient is admitted in ICU. Currently pulse ox 80% FiO2 on 10 to 12 L of oxygen. Urinary antigens are negative. CT is suggestive of bilateral COVID-19 pneumonitis but not PE. Empirically on IV ceftriaxone and azithromycin. Discussed with ID Dr. Dev Wright. He approved for baricitinib. On 4 mg daily for 14 days. ALT AST mildly elevated. Monitor liver tests daily. 04/25: Patient on Decadron) and baricitinib. On zinc and vitamin C. Mild increase in transaminases. Total bilirubin and alkaline phosphatase normal. 2. Rheumatoid arthritis, on meloxicam Would hold meloxicam for now 3. DVT prophylaxis with Lovenox I discussed and explained in details the various types of CODE STATUS-full code, DNR CCA, DNR CC. Patient chose Full code Time spent discussing CODE STATUS 16 minutes Charges/Coding Visit Charges Inpatient E&M: 51736 Subs Hosp L3
[2021-04-26] VITALS (41 sets, daily range): BP systolic 93–142; BP diastolic 58–88; PULSE 40–88; RESP 14–28; TEMP 36.4–36.7; O2SAT 91–100
--- NOTE | 2021-04-26 08:26 | PN.HOSP_ITS ---
Subjective Subjective Patient is a 56-year-old gentleman admitted with progressive shortness of breath diagnosed with Covid pneumonia admitted to the intensive care unit where patient is currently being managed on noninvasive ventilation Objective Data Objective Data Vital Signs: Vital Signs Temp Pulse Resp BP Pulse Ox 97.5 F L 47 L 25 H 118/71 93 04/26/21 00:00 04/26/21 08:00 04/26/21 08:00 04/26/21 08:00 04/26/21 08:00 Oxygen Flow Rate (L/min) 60 Oxygen Delivery Method Bi-pap Weight: 104.7 kg Body Mass Index (BMI) 31.1 Intake & Output: Intake and Output for Last 24 Hours 04/24/21 04/25/21 04/26/21 23:59 23:59 23:59 Intake Total 445 / 685 1265 / 1465 200 / 200 Output Total 950 / 1250 1600 / 2100 700 / 700 Balance -505 / -565 -335 / -635 -500 / -500 Lab / Micro Data Result Diagrams: 04/24/21 04:00 04/25/21 04:55 Micro: Microbiology 04/23/21 12:18 Blood Culture (Wb) - Anticubital Left Blood Culture - Prel iminary No growth in 48 hours. 04/23/21 10:55 Blood Culture (Wb) - Anticubital Right Blood Culture - Preliminary No growth in 48 hours. 04/23/21 21:31 Sputum, Expectorated/Coughed Gram Stain - Final 04/23/21 21:31 Sputum, Expectorated/Coughed Respiratory Culture - Preliminary Appears to be normal respiratory anna. Further studies to follow. 04/23/21 17:30 Urine, Clean Catch Legionella Antigen - Final 04/23/21 17:30 Urine, Clean Catch Streptococcus pneumoniae Antigen (M - Final Physical Exam Narrative GENERAL: On BiPAP HEENT: Atraumatic; EYES; Anicteric, Normal Conjunctiva NECK; supple, normal thyroid, RESPIRATORY: Diminished to auscultation CARDIOVASCULAR: Regular S1 S2, GI: soft, normoactive bowel sounds, : No Renal angle tenderness; EXTREMITIES: No edema, no clubbing, MUSCULOSKELETAL: no muscle waisting NEURO: Awake; no lateralizing signs. SKIN: No Rash PSYCH; Flat affect Assessment & Plan Assessment/Plan (1) COVID-19: (2) Respiratory failure: QUALIFIERS: Chronicity: acute Respiratory failure complication: hypoxia Qualified Code(s): J96.01 - Acute respiratory failure with hypoxia (3) Rheumatoid arthritis: QUALIFIERS: Rheumatoid arthritis location: multiple sites Rheumatoid factor presence: with rheumatoid factor Qualified Code(s): M05.79 - Rheumatoid arthritis with rheumatoid factor of multiple sites without organ or systems involvement (4) BPH associated with nocturia: PLAN: Patient is a 56-year-old gentleman admitted with progressive shortness of breath diagnosed with Covid pneumonia admitted to the intensive care unit where patient is currently being managed on noninvasive ventilation 1. Acute hypoxic respiratory failure ?Secondary to COVID-19. Patient apparently tested positive on 04/14/2021. Admitted to the intensive care unit managed with Decadron as well as baricitinib. Patient was placed on noninvasive ventilation BiPAP. Patient was outside the window for remdesivir. Was also empirically treated with ceftriaxone as well as azithromycin. Consult placed to both pulmonary medicine as well as infectious disease 2. Rheumatoid arthritis ?Patient was being treated with nonsteroidal anti-inflammatory medications?meloxicam currently on hold 3. Allergic rhinitis -currently remains asymptomatic 4. DVT prophylaxis ?Lovenox Charges/Coding Visit Charges Inpatient E&M: 46770 Subs Hosp L3
[2021-04-26] MEDS: Ceftriaxone 1 GM/50 ML BAG IV (09:05)
[2021-04-26] MEDS: Ascorbic Acid 500 MG Tablet 1000 MG PO ×2 (09:05→16:13)
[2021-04-26] MEDS: dexAMETHasone 4 MG Tablet 6 MG PO (09:06)
[2021-04-26] MEDS: Enoxaparin 30 MG/0.3 ML Syringe SC ×2 (09:06→19:32)
[2021-04-26] MEDS: CHLORHEXIDINE GLUC 2% CLOTH 1 EACH TOWELETTE TOPICAL (09:11)
[2021-04-26] MEDS: Furosemide 40 MG/4 ML Vial IV (10:24)
[2021-04-26] MEDS: 0.9% Saline Lock 10 ML Syringe IV ×2 (10:24→19:32)
--- NOTE | 2021-04-26 10:48 | PN.CC_ITS ---
Assessment & Plan Assessment/Plan (1) Respiratory failure: QUALIFIERS: Chronicity: acute Respiratory failure complication: hypoxia Qualified Code(s): J96.01 - Acute respiratory failure with hypoxia (2) COVID-19: (3) Rheumatoid arthritis: QUALIFIERS: Rheumatoid arthritis location: multiple sites Rheumatoid factor presence: with rheumatoid factor Qualified Code(s): M05.79 - Rheumatoid arthritis with rheumatoid factor of multiple sites without organ or systems involvement (4) Obesity: PLAN: RECOMMENDATIONS: 1. Continue BiPAP therapy and wean FiO2 for saturations greater than 90%. 2. Attempt to wean to Airvo heated high flow today, if feasible. 3. Continue antimicrobials for now. 4. Continue Lovenox, Decadron and baricitinib as ordered. 5. Continue zinc and vitamin C as scheduled. 6. Continue scheduled bronchodilator therapy. 7. Awake prone positioning was encouraged. 8. IV Lasix will be given today. IMPRESSIONS: 1. Acute hypoxic respiratory failure secondary to COVID-19 and pneumococcal pneumonia The patient initially presented to the hospital with 2 weeks of progressive symptoms. Unfortunately, the patient is outside of the window to receive remdesivir. His oxygenation status remains quite tenuous. In addition to coronavirus, the patient's sputum culture was also positive for Streptococcus pneumoniae. Therefore, he will be continued on appropriate antimicrobials. The patient has been maintained on BiPAP, which will be weaned as tolerated. Attempt will be made today to transition the patient to heated high flow, if feasible. In the interim, the patient will be continued on Lovenox, Decadron and baricitinib. Continue vitamin C and zinc is scheduled. Continue bronchod ilator therapy. Awake prone positioning was encouraged. 2. Rheumatoid arthritis/BPH/history of rhinoplasty/unvaccinated status Complicates care, management, recovery and prognosis. Continue supportive measures as noted above. The patient is high risk for the need for intubation if no improvement in oxygenation status. TIME: 33 minutes of critical care time, independent of procedures, was spent addressing the patient's acute hypoxemic respiratory failure secondary to COVID- 19 pneumonia, review of all data and collaboration with care team. ([id number]) Subjective Subjective The patient was seen and examined at the bedside this morning. Events from the last 24 hours have been reviewed. The patient is currently afebrile, hemodynamically stable and maintaining appropriate oxygen saturations on BiPAP with an FiO2 requirement of 70%. He is currently documented to be overall net - 1.3L for the hospital admission. He remains on antimicrobials, Decadron, prophy lactic Lovenox and baricitinib. Objective Data Objective Data The patient's most recent lab work, culture data and imaging studies have all been personally reviewed. Blood cultures have demonstrated no growth to date. Strep and urine Legionella antigens were negative. Sputum culture was positive for Streptococcus pneumoniae. Vital Signs: Vital Signs Temp Pulse Resp BP Pulse Ox 97.5 F L 71 22 H 101/67 95 04/26/21 00:00 04/26/21 10:00 04/26/21 10:00 04/26/21 10:00 04/26/21 10:00 Oxygen Flow Rate (L/min) 93 Oxygen Delivery Method Airvo Weight: 104.7 kg Body Mass Index (BMI) 31.1 Intake & Output: Intake and Output for Last 24 Hours 04/24/21 04/25/21 04/26/21 23:59 23:59 23:59 Intake Total 445 / 685 1265 / 1465 250 / 250 Output Total 950 / 1250 1600 / 2100 700 / 700 Balance -505 / -565 -335 / -635 -450 / -450 Lab / Micro Data Attestation: I reviewed the patient's lab results. Result Diagrams: 04/24/21 04:00 04/25/21 04:55 Micro: Microbiology 04/23/21 21:31 Sputum, Expectorated/Coughed Gram Stain - Final 04/23/21 21:31 Sputum, Expectorated/Coughed Respiratory Culture - Preliminary Streptococcus pneumoniae 04/23/21 12:18 Blood Culture (Wb) - Anticubital Left Blood Culture - Pr eliminary No growth in 48 hours. 04/23/21 10:55 Blood Culture (Wb) - Anticubital Right Blood Culture - Preliminary No growth in 48 hours. 04/23/21 17:30 Urine, Clean Catch Legionella Antigen - Final 04/23/21 17:30 Urine, Clean Catch Streptococcus pneumoniae Antigen (M - Final Physical Exam Const alert General Appearance: cooperative, ill appearing and on BiPAP Nutritional Appearance: obese HEENT normocephalic and head/scalp atraumatic Eyes PERRL, EOMs intact bilaterally and conjunctivae normal Neck supple General: trachea midline Chest inspection of chest normal Resp Effort and Inspection: tachypneic Auscultation: diminished lung sounds; Negative for rales, rhonchi or wheezes Cardio S1 normal heart sound and S2 normal heart sound Rate: bradycardia GI normal to inspection, nondistended, normoactive bowel sounds Extremity no clubbing, cyanosis or edema Skin no rashes or lesions noted Neuro moves all extremities and no focal motor deficits Psych cooperative and affect normal Charges/Coding Procedures Hospitalists Procedures: 14424 Critial Care 1st Hr
--- NOTE | 2021-04-26 11:19 | CASEMGMT ---
SW participated in ICU rounds this morning. SW called to offer support. states she also had COVID, is better now and out of precautions--though still does not have her sense of taste and smell back and still loses her voice at times. states she is back to work today to distract herself. SW explained is available for support as needed. states understanding, thanked SW for calling. OLGA Barfield
[2021-04-26] MEDS: Ipratropium/Albuterol Sulfate 3 ML AMPUL.NEB INHALATION ×3 (11:41→19:42)
--- NOTE | 2021-04-26 12:50 | PCM.CONS.GEN ---
Assessment & Plan Assessment/Plan (1) COVID-19: PLAN: Covid started around 04/10/21. Isolate until 04/30. Unvaccinated. Recommended vaccine after discharge. On baricitinib and dex. Stopped azithro. Cont ceftriaxone for sputum with strep pneumo. CT neg for PE. Will follow, thank you (2) Respiratory failure: QUALIFIERS: Chronicity: acute Respiratory failure complication: hypoxia Qualified Code(s): J96.01 - Acute respiratory failure with hypoxia HPI Consult Data Date of Consult: 04/26/21 HPI Narrative HPI Narrative: LIYAH HIGGINBOTHAM, is a 56 M who presented 04/23 with worsening dyspnea and hypoxia. Sx started about 2 weeks prior. and daugher also sick, recovering. He has not been vaccinated. C/o fever, chills, cough with dark sputum. Mild nausea, no change in taste or smell. Came to ED, admitted on dex and baricitinib, azithro and ceftriaxone. Feeling better. Full ROS performed and neg except as noted above. [facility]LY [facility] Medical History Allergies BPH associated with nocturia Cough Dermatitis Encounter for screening for COVID-19 Erectile dysfunction Obesity Rheumatoid arthritis Medical History no medical history Home Medications meloxicam 15 mg PO DAILY 04/18/21 [History Last Taken 10 Days Ago ~04/13/21] dexamethasone 6 mg PO DAILY 04/23/21 [History Last Taken 04/22/21] ondansetron 4 mg PO Q8H PRN 04/23/21 [History Last Taken Unknown] Allergy/AdvReac Type Severity Reaction Status Date / Time No Known Allergies Allergy Verified 04/19/21 15:17 Family History Father Arthritis Diabetes Hypertension Heart disease High cholesterol Prostate cancer Bone cancer Mother Lymphoma Surgical History S/P rhinoplasty S/P tonsillectomy Social History Smoking Status: Never smoker second hand exposure: No alcohol intake: current alcohol intake frequency: holidays/special occasions only substance use type: does not use caffeine: No what type of physical activity do you participate in: none frequency: does not exercise seatbelt use: always Physical Exam Const alert and oriented x3 General Appearance: cooperative Exam Limitations: no limitations HEENT normocephalic and head/scalp atraumatic Eyes PERRL and EOMs intact bilaterally Neck supple and No nodes Resp Auscultation: diminished lung sounds Cardio regular rate and regular rhythm GI normal to inspection, nondistended, normoactive bowel sounds Extremity no clubbing, cyanosis or edema Skin no rashes or lesions noted Neuro CN's II-XII intact bilaterally Lab / Micro Data Result Diagrams: 04/24/21 04:00 04/25/21 04:55 Micro: Microbiology 04/23/21 21:31 Sputum, Expectorated/Coughed Gram Stain - Final 04/23/21 21:31 Sputum, Expectorated/Coughed Respiratory Culture - Preliminary Streptococcus pneumoniae 04/23/21 12:18 Blood Culture (Wb) - Anticubital Left Blood Culture - Preliminary No growth in 48 hours. 04/23/21 10:55 Blood Culture (Wb) - Anticubital Right Blood Culture - Preliminary No growth in 48 hours.
--- NOTE | 2021-04-26 21:06 | NURSING ---
pt placed on bipap
[2021-04-27] VITALS (34 sets, daily range): BP systolic 93–143; BP diastolic 56–98; PULSE 47–115; RESP 14–28; TEMP 36.6–37.2; O2SAT 90–98
[2021-04-27 04:03] LABS: Absolute Lymphocyte Count 0.67 X10^3/uL (0.83-4.51); Absolute Neutrophil Count 5.1 X10^3/uL (2.0-7.7); Basophil# 0.01 X10^3/uL; Basophil% 0.2 % (0-1); Hemoglobin 13.8 g/dL (13.0-16.5); Lymphocyte # 0.67 X10^3/ul (0.83-4.51); Lymphocyte % 10.7 % (19-41); Mean Corp Hgb Conc 32.9 g/dL (32-36); Mean Corpuscular Hgb 29.7 pg (27.0-32.0); Mean Corpuscular Volume 90.3 fL (80-94); Monocyte# 0.36 X10^3/uL; Monocyte% 5.8 % (0-10); NRBC Flagged by Analyzer 0 % (0-5); Neutrophil # 5.12 X10^3/uL (2.7-7.7); Neutrophil % 81.9 % (47-70); Platelet Count 354 K/mm3 (150-450); RBC Distribution Width CV 11.9 % (11.6-14.6); RBC Distribution Width SD 39.4 fl (35.1-43.9); Red Blood Count 4.65 M/mm3 (4.6-6.2); White Blood Count 6.3 K/mm3 (4.4-11.0)
[2021-04-27 04:24] LABS: ALB/GLOB Ratio 0.5 RATIO (0.9-2.4); AST(SGOT) 36 U/L (15-37); Alanine Aminotransfer ALT/SGPT 166 U/L (16-61); Albumin, Serum 2.6 g/dL (3.2-5.0); Alkaline Phosphatase 74 U/L (45-117); Anion Gap 7 (5-15); BUN 24 mg/dL (7-18); BUN/Creat Ratio 24.4 RATIO (10-20); Calcium,Total 9.2 mg/dL (8.5-10.1); Chloride 96 mmol/L (98-107); Creatinine, Serum 0.98 mg/dL (0.70-1.30); EST Glomerular Filtration Rate 83 mL/min (>60); Est Glom Filt Rate - Afr Amer 101 mL/min (>60); Estimated Creatinine Clearance 87.51 ml/min; Globulin 4.8 g/dL (2.2-4.2); Glucose 169 mg/dL (74-106); Magnesium 2.6 mg/dL (1.6-2.6); Potassium 4.4 mmol/L (3.5-5.1); Protein, Total 7.4 g/dL (6.4-8.2); Sodium Level 134 mmol/L (136-145)
[2021-04-27] MEDS: Mag Hydrox/Al Hydrox/Simeth 30 ML UDC PO (04:37)
[2021-04-27] MEDS: 0.9% Saline Lock 10 ML Syringe IV ×3 (04:37→20:12)
--- NOTE | 2021-04-27 06:32 | PCM.PN.INT ---
Assessment & Plan Assessment/Plan (1) Respiratory failure: QUALIFIERS: Chronicity: acute Respiratory failure complication: hypoxia Qualified Code(s): J96.01 - Acute respiratory failure with hypoxia (2) COVID-19: (3) Rheumatoid arthritis: QUALIFIERS: Rheumatoid arthritis location: multiple sites Rheumatoid factor presence: with rheumatoid factor Qualified Code(s): M05.79 - Rheumatoid arthritis with rheumatoid factor of multiple sites without organ or systems involvement (4) Obesity: PLAN: RECOMMENDATIONS: 1. Continue BiPAP nightly. Wean patient to Airvo heated high flow for daytime support. 2. Continue to wean FiO2 to maintain oxygen saturations at or above 90%. 3. Continue antimicrobials for now. 4. Continue Lovenox, Decadron and baricitinib as ordered. 5. Continue zinc and vitamin C as scheduled. 6. Continue scheduled bronchodilator therapy. 7. Awake prone positioning was encouraged. 8. IV Lasix will be given today. IMPRESSIONS: 1. Acute hypoxic respiratory failure secondary to COVID-19 and pneumococcal pneumonia The patient initially presented to the hospital with 2 weeks of progressive symptoms. Unfortunately, the patient is outside of the window to receive remdesivir. His oxygenation status remains quite tenuous. In addition to coronavirus, the patient's sputum culture was also positive for Streptococcus pneumoniae. Therefore, he will be continued on appropriate antimicrobials. The patient has been maintained on BiPAP, which will be weaned as tolerated. Attempt will be made today to transition the patient to heated high flow again for daytime support. In the interim, the patient will be continued on Lovenox, Decadron and baricitinib. Continue vitamin C and zinc is scheduled. Continue bronchodilator therapy. Awake prone positioning was encouraged. 2. Rheumatoid arthritis/BPH/history of rhinoplasty/unvaccinated status Complicates care, management, recovery and prognosis. Continue supportive measures as noted above. This note was generated with [employer] dictation software. It may contain incorrect words, spelling, and punctuation that were not noted in checking the note before signing. Subjective Subjective The patient was seen and examined at the bedside this morning. Events from the last 24 hours have been reviewed. The patient is currently afebrile, hemodynamically stable and maintaining appropriate oxygen saturations on BiPAP with an FiO2 requirement of 60%. He is currently documented to be overall net -1.8L for the hospital admission. He remains on antimicrobials, Decadron, prophylactic Lovenox and baricitinib. The patient continues to make attempts at proning himself while in bed. Objective Data Objective Data The patient's most recent lab work, culture data and imaging studies have all been personally reviewed. Blood cultures have demonstrated no growth to date. Strep and urine Legionella antigens were negative. Sputum culture was positive for Streptococcus pneumoniae. Vital Signs: Vital Signs Temp Pulse Resp BP Pulse Ox 98.1 F 64 21 H 100/88 H 94 04/27/21 04:00 04/27/21 06:00 04/27/21 06:00 04/27/21 06:00 04/27/21 06:00 Oxygen Flow Rate (L/min) 60 Oxygen Delivery Method Bi-pap Weight: 101.4 kg Body Mass Index (BMI) 31.1 Intake & Output: Intake and Output for Last 24 Hours 04/25/21 04/26/21 04/27/21 23:59 23:59 23:59 Intake Total 1265 / 1465 890 / 1330 560 / 560 Output Total 1600 / 2100 2250 / 2250 200 / 200 Balance -335 / -635 -1360 / -920 360 / 360 Lab / Micro Data Attestation: I reviewed the patient's lab results. Result Diagrams: 04/27/21 03:40 04/27/21 03:40 Labs: Laboratory Results - last 24 hr 04/27/21 03:40: WBC 6.3, RBC 4.65, Hgb 13.8, Hct 42.0, MCV 90.3, MCH 29.7, MCHC 32.9, RDW Std Deviation 39.4, RDW Coeff of Ede 11.9, Plt Count 354, MPV 10.0, Immature Gran % (Auto) 1.400 H, Neut % (Auto) 81.9 H, Lymph % (Auto) 10.7 L, [place] % (Auto) 5.8, Eos % (Auto) 0.0, Baso % (Auto) 0.2, Absolute Neuts (auto) 5.1, Absolute Lymphs (auto) 0.67 L, Nucleated RBC % 0 04/27/21 03:40: Sodium 134 L, Potassium 4.4, Chloride 96 L, Carbon Dioxide 31.0, Anion Gap 7, BUN 24 H, Creatinine 0.98, Estim Creat Clear Calc 87.51, Est GFR (MDRD) Af Amer 101, Est GFR (MDRD) Non-Af 83, BUN/Creatinine Ratio 24.4 H, Glucose 169 H, Calcium 9.2, Magnesium 2.6, Total Bilirubin 0.60, AST 36, ALT 166 H, Alkaline Phosphatase 74, Total Protein 7.4, Albumin 2.6 L, Globulin 4.8 H, Albumin/Globulin Ratio 0.5 L Micro: Microbiology 04/23/21 21:31 Sputum, Expectorated/Coughed Gram Stain - Final 04/23/21 21:31 Sputum, Expectorated/Coughed Respiratory Culture - Preliminary Streptococcus pneumoniae 04/23/21 12:18 Blood Culture (Wb) - Anticubital Left Blood Culture - Preliminary No growth in 48 hours. 04/23/21 10:55 Blood Culture (Wb) - Anticubital Right Blood Culture - Preliminary No growth in 48 hours. 04/23/21 17:30 Urine, Clean Catch Legionella Antigen - Final 04/23/21 17:30 Urine, Clean Catch Streptococcus pneumoniae Antigen (M - Final Physical Exam Const alert and no apparent distress General Appearance: cooperative, ill appearing and on BiPAP Nutritional Appearance: obese HEENT normocephalic and head/scalp atraumatic Eyes PERRL, EOMs intact bilaterally and conjunctivae normal Neck supple General: trachea midline Chest inspection of chest normal Resp Effort and Inspection: tachypneic Auscultation: diminished lung sounds; Negative for rales, rhonchi or wheezes Cardio regular rate, regular rhythm, S1 normal heart sound and S2 normal heart sound GI normal to inspection, nondistended, normoactive bowel sounds Extremity no clubbing, cyanosis or edema Skin no rashes or lesions noted Neuro moves all extremities and no focal motor deficits Psych cooperative and affect normal Charges/Coding Visit Charges Inpatient E&M: 31096 Subs Hosp L3
--- NOTE | 2021-04-27 07:12 | PCM.PN.HOSP ---
Subjective Subjective Patient seen still requiring high flow oxygen. Currently on FiO2 60 L at 84%. Was able to prone during the evening Objective Data Objective Data Vital Signs: Vital Signs Temp Pulse Resp BP Pulse Ox 98.1 F 64 21 H 100/88 H 94 04/27/21 04:00 04/27/21 06:00 04/27/21 06:00 04/27/21 06:00 04/27/21 06:00 Oxygen Flow Rate (L/min) 60 Oxygen Delivery Method Bi-pap Weight: 101.4 kg Body Mass Index (BMI) 31.1 Intake & Output: Intake and Output for Last 24 Hours 04/25/21 04/26/21 04/27/21 23:59 23:59 23:59 Intake Total 1265 / 1465 890 / 1330 560 / 560 Output Total 1600 / 2100 2250 / 2250 200 / 200 Balance -335 / -635 -1360 / -920 360 / 360 Lab / Micro Data Result Diagrams: 04/27/21 03:40 04/27/21 03:40 Labs: Laboratory Results - last 24 hr 04/27/21 03:40: WBC 6.3, RBC 4.65, Hgb 13.8, Hct 42.0, MCV 90.3, MCH 29.7, MCHC 32.9, RDW Std Deviation 39.4, RDW Coeff of Ede 11.9, Plt Count 354, MPV 10.0, Immature Gran % (Auto) 1.400 H, Neut % (Auto) 81.9 H, Lymph % (Auto) 10.7 L, [place] % (Auto) 5.8, Eos % (Auto) 0.0, Baso % (Auto) 0.2, Absolute Neuts (auto) 5.1, Absolute Lymphs (auto) 0.67 L, Nucleated RBC % 0 04/27/21 03:40: Sodium 134 L, Potassium 4.4, Chloride 96 L, Carbon Dioxide 31.0, Anion Gap 7, BUN 24 H, Creatinine 0.98, Estim Creat Clear Calc 87.51, Est GFR (MDRD) Af Amer 101, Est GFR (MDRD) Non-Af 83, BUN/Creatinine Ratio 24.4 H, Glucose 169 H, Calcium 9.2, Magnesium 2.6, Total Bilirubin 0.60, AST 36, ALT 166 H, Alkaline Phosphatase 74, Total Protein 7.4, Albumin 2.6 L, Globulin 4.8 H, Albumin/Globulin Ratio 0.5 L Micro: Microbiology 04/23/21 21:31 Sputum, Expectorated/Coughed Gram Stain - Final 04/23/21 21:31 Sputum, Expectorated/Coughed Respiratory Culture - Preliminary Streptococcus pneumoniae 04/23/21 12:18 Blood Culture (Wb) - Anticubital Left Blood Culture - Preliminary No growth in 48 hours. 04/23/21 10:55 Blood Culture (Wb) - Anticubital Right Blood Culture - Preliminary No growth in 48 hours. 04/23/21 17:30 Urine, Clean Catch Legionella Antigen - Final 04/23/21 17:30 Urine, Clean Catch Streptococcus pneumoniae Antigen (M - Final Physical Exam Narrative GENERAL: On BiPAP HEENT: Atraumatic; EYES; Anicteric, Normal Conjunctiva NECK; supple, normal thyroid, RESPIRATORY: Diminished to auscultation CARDIOVASCULAR: Regular S1 S2, GI: soft, normoactive bowel sounds, : No Renal angle tenderness; EXTREMITIES: No edema, no clubbing, MUSCULOSKELETAL: no muscle waisting NEURO: Awake; no lateralizing signs. SKIN: No Rash PSYCH; Flat affect Assessment & Plan Assessment/Plan (1) COVID-19: (2) Respiratory failure: QUALIFIERS: Chronicity: acute Respiratory failure complication: hypoxia Qualified Code(s): J96.01 - Acute respiratory failure with hypoxia (3) Rheumatoid arthritis: QUALIFIERS: Rheumatoid arthritis location: multiple sites Rheumatoid factor presence: with rheumatoid factor Qualified Code(s): M05.79 - Rheumatoid arthritis with rheumatoid factor of multiple sites without organ or systems involvement (4) BPH associated with nocturia: PLAN: Patient is a 56-year-old gentleman admitted with progressive shortness of breath diagnosed with Covid pneumonia admitted to the intensive care unit where patient is currently being managed on noninvasive ventilation 1. Acute hypoxic respiratory failure ?Secondary to COVID-19. Patient apparently tested positive on 04/14/2021. Admitted to the intensive care unit managed with Decadron as well as baricitinib. Patient was placed on noninvasive ventilation BiPAP. Patient was outside the window for remdesivir. Was also empirically treated with ceftriaxone as well as azithromycin. Consult placed to both pulmonary medicine as well as infectious disease -04/27/2021atient seen still requiring high flow oxygen. Currently on FiO2 60 L at 84%. Was able to prone during the evening 2. Rheumatoid arthritis ?Patient was being treated with nonsteroidal anti-inflammatory medications?meloxicam currently on hold 3. Allergic rhinitis -currently remains asymptomatic 4. DVT prophylaxis ?Lovenox Charges/Coding Visit Charges Inpatient E&M: 01993 Subs Hosp L3
[2021-04-27] MEDS: Ascorbic Acid 500 MG Tablet 1000 MG PO ×2 (07:50→17:46)
[2021-04-27] MEDS: Furosemide 40 MG/4 ML Vial IV (07:50)
[2021-04-27] MEDS: dexAMETHasone 4 MG Tablet 6 MG PO (07:50)
[2021-04-27] MEDS: Enoxaparin 30 MG/0.3 ML Syringe SC ×2 (07:51→20:12)
[2021-04-27] MEDS: CHLORHEXIDINE GLUC 2% CLOTH 1 EACH TOWELETTE TOPICAL (07:53)
[2021-04-27] MEDS: Ipratropium/Albuterol Sulfate 3 ML AMPUL.NEB INHALATION ×3 (11:46→19:40)
[2021-04-28] VITALS (36 sets, daily range): BP systolic 88–129; BP diastolic 47–88; PULSE 55–107; RESP 14–33; TEMP 36.1–36.6; O2SAT 89–96
[2021-04-28 04:48] LABS: Absolute Lymphocyte Count 0.92 X10^3/uL (0.83-4.51); Absolute Neutrophil Count 7.7 X10^3/uL (2.0-7.7); Basophil# 0.01 X10^3/uL; Basophil% 0.1 % (0-1); Eosinophil# 0.03 X10^3/uL; Eosinophils% 0.3 % (0-5); Hematocrit 41.3 % (40-54); Hemoglobin 13.8 g/dL (13.0-16.5); Lymphocyte # 0.92 X10^3/ul (0.83-4.51); Lymphocyte % 9.9 % (19-41); Mean Corp Hgb Conc 33.4 g/dL (32-36); Mean Corpuscular Volume 89.8 fL (80-94); Mean Platelet Vol. 9.5 fl (6.2-12.0); Monocyte# 0.46 X10^3/uL; NRBC Flagged by Analyzer 0 % (0-5); Neutrophil # 7.74 X10^3/uL (2.7-7.7); Neutrophil % 83.3 % (47-70); Platelet Count 375 K/mm3 (150-450); RBC Distribution Width CV 11.9 % (11.6-14.6); White Blood Count 9.3 K/mm3 (4.4-11.0)
[2021-04-28 05:04] LABS: ALB/GLOB Ratio 0.5 RATIO (0.9-2.4); AST(SGOT) 57 U/L (15-37); Alanine Aminotransfer ALT/SGPT 203 U/L (16-61); Albumin, Serum 2.5 g/dL (3.2-5.0); Alkaline Phosphatase 73 U/L (45-117); Anion Gap 7 (5-15); BUN 26 mg/dL (7-18); BUN/Creat Ratio 24.8 RATIO (10-20); Calcium,Total 8.8 mg/dL (8.5-10.1); Chloride 95 mmol/L (98-107); Creatinine, Serum 1.05 mg/dL (0.70-1.30); EST Glomerular Filtration Rate 77 mL/min (>60); Est Glom Filt Rate - Afr Amer 93 mL/min (>60); Estimated Creatinine Clearance 81.67 ml/min; Globulin 4.6 g/dL (2.2-4.2); Glucose 122 mg/dL (74-106); Potassium 4.3 mmol/L (3.5-5.1); Protein, Total 7.1 g/dL (6.4-8.2); Sodium Level 135 mmol/L (136-145)
--- NOTE | 2021-04-28 05:08 | NURSING ---
pt having periods of sleep apena. pulse ox will drop down to 78 but rrecovery quickly
--- NOTE | 2021-04-28 07:19 | PN.HOSP_ITS ---
Subjective Subjective Patient seen remains in ICU. Still remains on high flow oxygen with desaturation with minimal activity. Objective Data Objective Data Vital Signs: Vital Signs Temp Pulse Resp BP Pulse Ox 97.6 F L 79 26 H 112/61 92 04/28/21 00:00 04/28/21 07:15 04/28/21 07:15 04/28/21 07:00 04/28/21 07:15 Oxygen Flow Rate (L/min) 60 Oxygen Delivery Method Bi-pap Weight: 102.5 kg Body Mass Index (BMI) 31.1 Intake & Output: Intake and Output for Last 24 Hours 04/26/21 04/27/21 04/28/21 23:59 23:59 23:59 Intake Total 890 / 1330 1580 / 1580 60 / 60 Output Total 2250 / 2250 1875 / 1875 400 / 400 Balance -1360 / -920 -295 / -295 -340 / -340 Lab / Micro Data Result Diagrams: 04/28/21 04:35 04/28/21 04:35 Labs: Laboratory Results - last 24 hr 04/28/21 04:35: WBC 9.3, RBC 4.60, Hgb 13.8, Hct 41.3, MCV 89.8, MCH 30.0, MCHC 33.4, RDW Std Deviation 39.0, RDW Coeff of Ede 11.9, Plt Count 375, MPV 9.5, Immature Gran % (Auto) 1.400 H, Neut % (Auto) 83.3 H, Lymph % (Auto) 9.9 L, [place] % (Auto) 5.0, Eos % (Auto) 0.3, Baso % (Auto) 0.1, Absolute Neuts (auto) 7.7, Absolute Lymphs (auto) 0.92, Nucleated RBC % 0 04/28/21 04:35: Sodium 135 L, Potassium 4.3, Chloride 95 L, Carbon Dioxide 33.0 H, Anion Gap 7, BUN 26 H, Creatinine 1.05, Estim Creat Clear Calc 81.67, Est GFR (MDRD) Af Amer 93, Est GFR (MDRD) Non-Af 77, BUN/Creatinine Ratio 24.8 H, Glucose 122 H, Calcium 8.8, Total Bilirubin 0.60, AST 57 H, ALT 203 H, Alkaline Phosphatase 73, Total Protein 7.1, Albumin 2.5 L, Globulin 4.6 H, Albumin/Globulin Ratio 0.5 L Micro: Microbiology 04/23/21 21:31 Sputum, Expectorated/Coughed Gram Stain - Final 04/23/21 21:31 Sputum, Expectorated/Coughed Respiratory Culture - Preliminary Streptococcus pneumoniae 04/23/21 12:18 Blood Culture (Wb) - Anticubital Left Blood Culture - Preliminary No growth in 48 hours. 04/23/21 10:55 Blood Culture (Wb) - Anticubital Right Blood Culture - Preliminary No growth in 48 hours. 04/23/21 17:30 Urine, Clean Catch Legionella Antigen - Final 04/23/21 17:30 Urine, Clean Catch Streptococcus pneumoniae Antigen (M - Final Physical Exam Narrative GENERAL: On BiPAP HEENT: Atraumatic; EYES; Anicteric, Normal Conjunctiva NECK; supple, normal thyroid, RESPIRATORY: Diminished to auscultation CARDIOVASCULAR: Regular S1 S2, GI: soft, normoactive bowel sounds, : No Renal angle tenderness; EXTREMITIES: No edema, no clubbing, MUSCULOSKELETAL: no muscle waisting NEURO: Awake; no lateralizing signs. SKIN: No Rash PSYCH; Flat affect Assessment & Plan Assessment/Plan (1) COVID-19: (2) Respiratory failure: QUALIFIERS: Chronicity: acute Respiratory failure complication: hypoxia Qualified Code(s): J96.01 - Acute respiratory failure with hypoxia (3) Rheumatoid arthritis: QUALIFIERS: Rheumatoid arthritis location: multiple sites Rheumatoid factor presence: with rheumatoid factor Qualified Code(s): M05.79 - Rheumatoid arthritis with rheumatoid factor of multiple sites without organ or systems involvement (4) BPH associated with nocturia: PLAN: Patient is a 56-year-old gentleman admitted with progressive shortness of breath diagnosed with Covid pneumonia admitted to the intensive care unit where patient is currently being managed on noninvasive ventilation 1. Acute hypoxic respiratory failure ?Secondary to COVID-19. Patient apparently tested positive on 04/14/2021. Admitted to the intensive care unit managed with Decadron as well as baricitinib. Patient was placed on noninvasive ventilation BiPAP. Patient was outside the window for remdesivir. Was also empirically treated with ceftriaxone as well as azithromycin. Consult placed to both pulmonary medicine as well as infectious disease -1Patient seen still requiring high flow oxygen. Currently on FiO2 60 L at 84%. Was able to prone during the evening ?04/28/2021 Patient seen remains in ICU. Still remains on high flow oxygen with desaturation with minimal activity.. Sputum cultures positive for Streptococcus pneumoniae. Patient on Rocephin 2. Rheumatoid arthritis ?Patient was being treated with nonsteroidal anti-inflammatory medications?meloxicam currently on hold 3. Allergic rhinitis -currently remains asymptomatic 4. DVT prophylaxis ?Lovenox Charges/Coding Visit Charges Inpatient E&M: 06366 Subs Hosp L3
--- NOTE | 2021-04-28 08:04 | PCM.PN.INT ---
Assessment & Plan Assessment/Plan (1) Respiratory failure: QUALIFIERS: Chronicity: acute Respiratory failure complication: hypoxia Qualified Code(s): J96.01 - Acute respiratory failure with hypoxia (2) COVID-19: (3) Rheumatoid arthritis: QUALIFIERS: Rheumatoid arthritis location: multiple sites Rheumatoid factor presence: with rheumatoid factor Qualified Code(s): M05.79 - Rheumatoid arthritis with rheumatoid factor of multiple sites without organ or systems involvement (4) Obesity: PLAN: RECOMMENDATIONS: 1. Continue BiPAP nightly. Continue patient on Airvo heated high flow for daytime support. 2. Continue to wean FiO2 to maintain oxygen saturations at or above 90%. 3. Continue antimicrobials for now. 4. Continue Lovenox, Decadron and baricitinib as ordered. 5. Continue zinc and vitamin C as scheduled. 6. Continue scheduled bronchodilator therapy. 7. Awake prone positioning was encouraged. 8. IV Lasix will again be given today. IMPRESSIONS: 1. Acute hypoxic respiratory failure secondary to COVID-19 and pneumococcal pneumonia The patient initially presented to the hospital with 2 weeks of progressive symptoms. Unfortunately, the patient was outside of the window to receive remdesivir. His oxygenation status remains quite tenuous. In addition to coronavirus, the patient's sputum culture was also positive for Streptococcus pneumoniae. Therefore, he will be continued on appropriate antimicrobials. Continue patient on Airvo heated high flow throughout the day and BiPAP at night. Wean FiO2 to maintain oxygen saturations at or above 90%. In the interim, the patient will be continued on Lovenox, Decadron and baricitinib. Continue vitamin C and zinc is scheduled. Continue bronchodilator therapy. Awake prone positioning was encouraged. Additional Lasix will be given today. 2. Rheumatoid arthritis/BPH/history of rhinoplasty/unvaccinated status Complicates care, management, recovery and prognosis. Continue supportive measures as noted above. This note was generated with [employer] dictation software. It may contain incorrect words, spelling, and punctuation that were not noted in checking the note before signing. Subjective Subjective The patient was seen and examined at the bedside this morning. Events from the last 24 hours have been reviewed. The patient is currently afebrile, hemodynamically stable and maintaining appropriate oxygen saturations on BiPAP with an FiO2 requirement of 60%. The patient was able to be weaned to Airvo heated high flow throughout the day yesterday with an FiO2 of 70% and flow rate of 60 L/min. The patient continues to prone himself while in bed. He is currently documented to be overall net -2.8L for the hospital admission. He remains on antimicrobials, Decadron, prophylactic Lovenox and baricitinib. Objective Data Objective Data The patient's most recent lab work, culture data and imaging studies have all been personally reviewed. Blood cultures have demonstrated no growth to date. Strep and urine Legionella antigens were negative. Sputum culture was positive for Streptococcus pneumoniae. Vital Signs: Vital Signs Temp Pulse Resp BP Pulse Ox 97.6 F L 71 26 H 112/61 92 04/28/21 00:00 04/28/21 07:34 04/28/21 07:15 04/28/21 07:00 04/28/21 07:15 Oxygen Flow Rate (L/min) 60 Oxygen Delivery Method Bi-pap Weight: 102.5 kg Body Mass Index (BMI) 31.1 Intake & Output: Intake and Output for Last 24 Hours 04/26/21 04/27/21 04/28/21 23:59 23:59 23:59 Intake Total 890 / 1330 1580 / 1580 60 / 60 Output Total 2250 / 2250 1875 / 1875 400 / 400 Balance -1360 / -920 -295 / -295 -340 / -340 Lab / Micro Data Attestation: I reviewed the patient's lab results. Result Diagrams: 04/28/21 04:35 04/28/21 04:35 Labs: Laboratory Results - last 24 hr 04/28/21 04:35: WBC 9.3, RBC 4.60, Hgb 13.8, Hct 41.3, MCV 89.8, MCH 30.0, MCHC 33.4, RDW Std Deviation 39.0, RDW Coeff of Ede 11.9, Plt Count 375, MPV 9.5, Immature Gran % (Auto) 1.400 H, Neut % (Auto) 83.3 H, Lymph % (Auto) 9.9 L, [place] % (Auto) 5.0, Eos % (Auto) 0.3, Baso % (Auto) 0.1, Absolute Neuts (auto) 7.7, Absolute Lymphs (auto) 0.92, Nucleated RBC % 0 04/28/21 04:35: Sodium 135 L, Potassium 4.3, Chloride 95 L, Carbon Dioxide 33.0 H, Anion Gap 7, BUN 26 H, Creatinine 1.05, Estim Creat Clear Calc 81.67, Est GFR (MDRD) Af Amer 93, Est GFR (MDRD) Non-Af 77, BUN/Creatinine Ratio 24.8 H, Glucose 122 H, Calcium 8.8, Total Bilirubin 0.60, AST 57 H, ALT 203 H, Alkaline Phosphatase 73, Total Protein 7.1, Albumin 2.5 L, Globulin 4.6 H, Albumin/Globulin Ratio 0.5 L Micro: Microbiology 04/23/21 21:31 Sputum, Expectorated/Coughed Gram Stain - Final 04/23/21 21:31 Sputum, Expectorated/Coughed Respiratory Culture - Preliminary Streptococcus pneumoniae 04/23/21 12:18 Blood Culture (Wb) - Anticubital Left Blood Culture - Preliminary No growth in 48 hours. 04/23/21 10:55 Blood Culture (Wb) - Anticubital Right Blood Culture - Preliminary No growth in 48 hours. 04/23/21 17:30 Urine, Clean Catch Legionella Antigen - Final 04/23/21 17:30 Urine, Clean Catch Streptococcus pneumoniae Antigen (M - Final Physical Exam Const alert and no apparent distress Constitutional Narrative: On Airvo currently. General Appearance: cooperative and ill appearing Nutritional Appearance: obese HEENT normocephalic and head/scalp atraumatic Eyes PERRL, EOMs intact bilaterally and conjunctivae normal Neck supple General: trachea midline Chest inspection of chest normal Resp Effort and Inspection: tachypneic Auscultation: diminished lung sounds; Negative for rales, rhonchi or wheezes Cardio regular rate, regular rhythm, S1 normal heart sound and S2 normal heart sound GI normal to inspection, nondistended, normoactive bowel sounds Extremity no clubbing, cyanosis or edema Skin no rashes or lesions noted Neuro moves all extremities and no focal motor deficits Psych cooperative and affect normal Charges/Coding Visit Charges Inpatient E&M: 04583 Subs Hosp L3
[2021-04-28] MEDS: Ipratropium/Albuterol Sulfate 3 ML AMPUL.NEB INHALATION ×3 (09:48→19:42)
[2021-04-28] MEDS: dexAMETHasone 4 MG Tablet 6 MG PO (10:33)
[2021-04-28] MEDS: CHLORHEXIDINE GLUC 2% CLOTH 1 EACH TOWELETTE TOPICAL (10:34)
[2021-04-28] MEDS: Ascorbic Acid 500 MG Tablet 1000 MG PO ×2 (10:34→18:22)
[2021-04-28] MEDS: Enoxaparin 30 MG/0.3 ML Syringe SC ×2 (10:34→19:52)
[2021-04-28] MEDS: Furosemide 40 MG/4 ML Vial IV (10:49)
[2021-04-28] MEDS: 0.9% Saline Lock 10 ML Syringe IV ×2 (10:49→19:53)
[2021-04-28] MEDS: Docusate Sodium 100 MG Capsule 200 MG PO (18:23)
--- NOTE | 2021-04-28 19:00 | NURSING ---
pandemic documentation
[2021-04-29] VITALS (35 sets, daily range): BP systolic 93–123; BP diastolic 52–78; PULSE 54–102; RESP 14–32; TEMP 36.6; O2SAT 86–98
[2021-04-29 03:44] LABS: Absolute Lymphocyte Count 0.75 X10^3/uL (0.83-4.51); Absolute Neutrophil Count 7.5 X10^3/uL (2.0-7.7); Basophil# 0.01 X10^3/uL; Basophil% 0.1 % (0-1); Eosinophil# 0.02 X10^3/uL; Eosinophils% 0.2 % (0-5); Hemoglobin 13.4 g/dL (13.0-16.5); Lymphocyte # 0.75 X10^3/ul (0.83-4.51); Lymphocyte % 8.6 % (19-41); Mean Corp Hgb Conc 33.5 g/dL (32-36); Mean Corpuscular Hgb 29.9 pg (27.0-32.0); Mean Corpuscular Volume 89.3 fL (80-94); Mean Platelet Vol. 9.4 fl (6.2-12.0); Monocyte# 0.32 X10^3/uL; Monocyte% 3.7 % (0-10); NRBC Flagged by Analyzer 0 % (0-5); Neutrophil # 7.46 X10^3/uL (2.7-7.7); Neutrophil % 85.3 % (47-70); Platelet Count 369 K/mm3 (150-450); RBC Distribution Width CV 11.9 % (11.6-14.6); RBC Distribution Width SD 38.6 fl (35.1-43.9); Red Blood Count 4.48 M/mm3 (4.6-6.2); White Blood Count 8.7 K/mm3 (4.4-11.0)
--- NOTE | 2021-04-29 03:53 | NURSING ---
pt did not want bipap on. pt said he cant sleep with it tonight. Airvo 60l and 60%.
[2021-04-29 04:03] LABS: ALB/GLOB Ratio 0.5 RATIO (0.9-2.4); AST(SGOT) 23 U/L (15-37); Alanine Aminotransfer ALT/SGPT 151 U/L (16-61); Albumin, Serum 2.5 g/dL (3.2-5.0); Alkaline Phosphatase 66 U/L (45-117); Anion Gap 6 (5-15); BUN 27 mg/dL (7-18); BUN/Creat Ratio 27.1 RATIO (10-20); Calcium,Total 8.9 mg/dL (8.5-10.1); Chloride 95 mmol/L (98-107); EST Glomerular Filtration Rate 82 mL/min (>60); Est Glom Filt Rate - Afr Amer 99 mL/min (>60); Estimated Creatinine Clearance 85.76 ml/min; Globulin 4.6 g/dL (2.2-4.2); Glucose 165 mg/dL (74-106); Potassium 4.2 mmol/L (3.5-5.1); Protein, Total 7.1 g/dL (6.4-8.2); Sodium Level 134 mmol/L (136-145)
--- NOTE | 2021-04-29 04:11 | NURSING ---
pt encourage to prone. Pt said he did not do it last night. Pt refused to do it at this time. Pt repostion to his side
[2021-04-29] MEDS: 0.9% Saline Lock 10 ML Syringe IV ×3 (05:26→20:21)
--- NOTE | 2021-04-29 06:38 | PCM.PN.INT ---
Assessment & Plan Assessment/Plan (1) Respiratory failure: QUALIFIERS: Chronicity: acute Respiratory failure complication: hypoxia Qualified Code(s): J96.01 - Acute respiratory failure with hypoxia (2) COVID-19: (3) Rheumatoid arthritis: QUALIFIERS: Rheumatoid arthritis location: multiple sites Rheumatoid factor presence: with rheumatoid factor Qualified Code(s): M05.79 - Rheumatoid arthritis with rheumatoid factor of multiple sites without organ or systems involvement (4) Obesity: PLAN: RECOMMENDATIONS: 1. Continue BiPAP nightly. Continue patient on Airvo heated high flow for daytime support. 2. Continue to wean FiO2 to maintain oxygen saturations at or above 90%. 3. Continue antimicrobials to complete 7-day treatment course. 4. Continue Lovenox, Decadron and baricitinib as ordered. 5. Continue zinc and vitamin C as scheduled. 6. Continue scheduled bronchodilator therapy. 7. Awake prone positioning was encouraged. 8. Ongoing diuresis as tolerated. 9. Recheck D-dimer. IMPRESSIONS: 1. Acute hypoxic respiratory failure secondary to COVID-19 and pneumococcal pneumonia The patient initially presented to the hospital with 2 weeks of progressive symptoms. Unfortunately, the patient was outside of the window to receive remdesivir. His oxygenation status remains quite tenuous. In addition to coronavirus, the patient's sputum culture was also positive for Streptococcus pneumoniae. Therefore, he will be continued on appropriate antimicrobials. Continue patient on Airvo heated high flow throughout the day and BiPAP at night. Wean FiO2 to maintain oxygen saturations at or above 90%. In the interim, the patient will be continued on Lovenox, Decadron and baricitinib. Continue vitamin C and zinc is scheduled. Continue bronchodilator therapy. Awake prone positioning was encouraged. Continue IV Lasix as tolerated by hemodynamics and renal function. 2. Rheumatoid arthritis/BPH/history of rhinoplasty/unvaccinated status Complicates care, management, recovery and prognosis. Continue supportive measures as noted above. This note was generated with [employer] dictation software. It may contain incorrect words, spelling, and punctuation that were not noted in checking the note before signing. Subjective Subjective The patient was seen and examined at the bedside this morning. Events from the last 24 hours have been reviewed. The patient is currently afebrile, hemodynamically stable and maintaining appropriate oxygen saturations on Airvo heated high flow with an FiO2 requirement of 60% and flow rate of 60 L/min. The patient was again tolerant of BiPAP overnight with an FiO2 requirement of 60%. He is currently documented to be overall net -5 L for the hospital admission. He remains on antimicrobials, Decadron, prophylactic Lovenox and baricitinib. Objective Data Objective Data The patient's most recent lab work, culture data and imaging studies have all been personally reviewed. Blood cultures have demonstrated no growth to date. Strep and urine Legionella antigens were negative. Sputum culture was positive for Streptococcus pneumoniae. Vital Signs: Vital Signs Temp Pulse Resp BP Pulse Ox 97.9 F 72 29 H 109/70 91 04/29/21 04:00 04/29/21 06:00 04/29/21 06:00 04/29/21 06:00 04/29/21 06:00 Oxygen Flow Rate (L/min) 60 Oxygen Delivery Method Airvo Weight: 101 kg Body Mass Index (BMI) 31.1 Intake & Output: Intake and Output for Last 24 Hours 04/27/21 04/28/21 04/29/21 23:59 23:59 23:59 Intake Total 1580 / 1580 1030 / 1030 60 / 60 Output Total 1875 / 1875 3300 / 3300 250 / 250 Balance -295 / -295 -2270 / -2270 -190 / -190 Lab / Micro Data Attestation: I reviewed the patient's lab results. Result Diagrams: 04/29/21 03:30 04/29/21 03:30 Labs: Laboratory Results - last 24 hr 04/29/21 03:30: WBC 8.7, RBC 4.48 L, Hgb 13.4, Hct 40.0, MCV 89.3, MCH 29.9, MCHC 33.5, RDW Std Deviation 38.6, RDW Coeff of Ede 11.9, Plt Count 369, MPV 9.4, Immature Gran % (Auto) 2.100 H, Neut % (Auto) 85.3 H, Lymph % (Auto) 8.6 L, [place] % (Auto) 3.7, Eos % (Auto) 0.2, Baso % (Auto) 0.1, Absolute Neuts (auto) 7.5, Absolute Lymphs (auto) 0.75 L, Nucleated RBC % 0 04/29/21 03:30: Sodium 134 L, Potassium 4.2, Chloride 95 L, Carbon Dioxide 33.0 H, Anion Gap 6, BUN 27 H, Creatinine 1.00, Estim Creat Clear Calc 85.76, Est GFR (MDRD) Af Amer 99, Est GFR (MDRD) Non-Af 82, BUN/Creatinine Ratio 27.1 H, Glucose 165 H, Calcium 8.9, Total Bilirubin 0.50, AST 23, ALT 151 H, Alkaline Phosphatase 66, Total Protein 7.1, Albumin 2.5 L, Globulin 4.6 H, Albumin/Globulin Ratio 0.5 L Micro: Microbiology 04/23/21 12:18 Blood Culture (Wb) - Anticubital Left Blood Culture - Final No growth in 5 days. 04/23/21 10:55 Blood Culture (Wb) - Anticubital Right Blood Culture - Final No growth in 5 days. 04/23/21 21:31 Sputum, Expectorated/Coughed Gram Stain - Final 04/23/21 21:31 Sputum, Expectorated/Coughed Respiratory Culture - Preliminary Streptococcus pneumoniae 04/23/21 17:30 Urine, Clean Catch Legionella Antigen - Final 04/23/21 17:30 Urine, Clean Catch Streptococcus pneumoniae Antigen (M - Final Physical Exam Const alert and no apparent distress Constitutional Narrative: On Airvo currently. Sitting in bedside recliner General Appearance: cooperative Nutritional Appearance: obese HEENT normocephalic and head/scalp atraumatic Eyes PERRL, EOMs intact bilaterally and conjunctivae normal Neck supple General: trachea midline Chest inspection of chest normal Resp Effort and Inspection: tachypneic Auscultation: diminished lung sounds; Negative for rales, rhonchi or wheezes Cardio regular rate, regular rhythm, S1 normal heart sound and S2 normal heart sound GI normal to inspection, nondistended, normoactive bowel sounds Extremity no clubbing, cyanosis or edema Skin no rashes or lesions noted Neuro moves all extremities and no focal motor deficits Psych cooperative and affect normal Charges/Coding Visit Charges Inpatient E&M: 56816 [facility] Hosp L3
[2021-04-29] MEDS: Ipratropium/Albuterol Sulfate 3 ML AMPUL.NEB INHALATION ×3 (07:14→19:25)
--- NOTE | 2021-04-29 07:27 | PN.HOSP_ITS ---
Subjective Subjective Patient seen appears to be improving clinically but still requiring high flow oxygen. Did tolerate BiPAP during the night. Currently on Airvo with FiO2 of 60% Objective Data Objective Data Vital Signs: Vital Signs Temp Pulse Resp BP Pulse Ox 97.9 F 66 25 H 109/70 88 04/29/21 04:00 04/29/21 07:15 04/29/21 07:15 04/29/21 06:00 04/29/21 07:15 Oxygen Flow Rate (L/min) 60 Oxygen Delivery Method Airvo Weight: 101 kg Body Mass Index (BMI) 31.1 Intake & Output: Intake and Output for Last 24 Hours 04/27/21 04/28/21 04/29/21 23:59 23:59 23:59 Intake Total 1580 / 1580 1030 / 1030 60 / 60 Output Total 1875 / 1875 3300 / 3300 250 / 250 Balance -295 / -295 -2270 / -2270 -190 / -190 Lab / Micro Data Result Diagrams: 04/29/21 03:30 04/29/21 03:30 Labs: Laboratory Results - last 24 hr 04/29/21 03:30: WBC 8.7, RBC 4.48 L, Hgb 13.4, Hct 40.0, MCV 89.3, MCH 29.9, MC HC 33.5, RDW Std Deviation 38.6, RDW Coeff of Ede 11.9, Plt Count 369, MPV 9.4, Immature Gran % (Auto) 2.100 H, Neut % (Auto) 85.3 H, Lymph % (Auto) 8.6 L, [place] % (Auto) 3.7, Eos % (Auto) 0.2, Baso % (Auto) 0.1, Absolute Neuts (auto) 7.5, Absolute Lymphs (auto) 0.75 L, Nucleated RBC % 0 04/29/21 03:30: Sodium 134 L, Potassium 4.2, Chloride 95 L, Carbon Dioxide 33.0 H, Anion Gap 6, BUN 27 H, Creatinine 1.00, Estim Creat Clear Calc 85.76, Est GFR (MDRD) Af Amer 99, Est GFR (MDRD) Non-Af 82, BUN/Creatinine Ratio 27.1 H, Glucose 165 H, Calcium 8.9, Total Bilirubin 0.50, AST 23, ALT 151 H, Alkaline Phosphatase 66, Total Protein 7.1, Albumin 2.5 L, Globulin 4.6 H, Albumin/Globulin Ratio 0.5 L Micro: Microbiology 04/23/21 12:18 Blood Culture (Wb) - Anticubital Left Blood Culture - Final No growth in 5 days. 04/23/21 10:55 Blood Culture (Wb) - Anticubital Right Blood Culture - Final No growth in 5 days. 04/23/21 21:31 Sputum, Expectorated/Coughed Gram Stain - Final 04/23/21 21:31 Sputum, Expectorated/Coughed Respiratory Culture - Preliminary Streptococcus pneumoniae 04/23/21 17:30 Urine, Clean Catch Legionella Antigen - Final 04/23/21 17:30 Urine, Clean Catch Streptococcus pneumoniae Antigen (M - Final Physical Exam Narrative GENERAL: On BiPAP HEENT: Atraumatic; EYES; Anicteric, Normal Conjunctiva NECK; supple, normal thyroid, RESPIRATORY: Diminished to auscultation CARDIOVASCULAR: Regular S1 S2, GI: soft, normoactive bowel sounds, : No Renal angle tenderness; EXTREMITIES: No edema, no clubbing, MUSCULOSKELETAL: no muscle waisting NEURO: Awake; no lateralizing signs. SKIN: No Rash PSYCH; Flat affect Assessment & Plan Assessment/Plan (1) COVID-19: (2) Respiratory failure: QUALIFIERS: Chronicity: acute Respiratory failure complication: hypoxia Qualified Code(s): J96.01 - Acute respiratory failure with hypoxia (3) Rheumatoid arthritis: QUALIFIERS: Rheumatoid arthritis location: multiple sites Rheumatoid factor presence: with rheumatoid factor Qualified Code(s): M05.79 - Rheumatoid arthritis with rheumatoid factor of multiple sites without organ or systems involvement (4) BPH associated with nocturia: PLAN: Patient is a 56-year-old gentleman admitted with progressive shortness of breath diagnosed with Covid pneumonia admitted to the intensive care unit where patient is currently being managed on noninvasive ventilation 1. Acute hypoxic respiratory failure ?Secondary to COVID-19. Patient apparently tested positive on 04/14/2021. A dmitted to the intensive care unit managed with Decadron as well as baricitinib. Patient was placed on noninvasive ventilation BiPAP. Patient was outside the window for remdesivir. Was also empirically treated with ceftriaxone as well as azithromycin. Consult placed to both pulmonary medicine as well as infectious disease -10/5/2021Patient seen still requiring high flow oxygen. Currently on FiO2 60 L at 84%. Was able to prone during the evening ?04/28/2021 Patient seen remains in ICU. Still remains on high flow oxygen with desaturation with minimal activity.. Sputum cultures positive for Streptococcus pneumoniae. Patient on Rocephin -04/29/2021 Patient seen appears to be improving clinically but still requiring high flow oxygen. Did tolerate BiPAP during the night. Currently on Airvo with FiO2 of 60% 2. Rheumatoid arthritis ?Patient was being treated with nonsteroidal anti-inflammatory medications?meloxicam currently on hold 3. Allergic rhinitis -currently remains asymptomatic 4. DVT prophylaxis ?Lovenox 5. Physical deconditioning - Requested for PT OT eval and social service agency director to assist with discharge planning Charges/Coding Visit Charges Inpatient E&M: [id number] [facility] Hosp L3
[2021-04-29] MEDS: dexAMETHasone 4 MG Tablet 6 MG PO (09:02)
[2021-04-29] MEDS: Docusate Sodium 100 MG Capsule 200 MG PO ×2 (09:02→20:20)
[2021-04-29] MEDS: Ascorbic Acid 500 MG Tablet 1000 MG PO ×2 (09:03→18:32)
[2021-04-29] MEDS: Enoxaparin 30 MG/0.3 ML Syringe SC ×2 (09:03→20:21)
--- NOTE | 2021-04-29 10:36 | PCM.PN.ID ---
Physical Exam Narrative Feeling better, brought up some sputum, no fever, no n/v/d. Const alert and no apparent distress General Appearance: cooperative Resp clear to auscultation bilaterally Auscultation: diminished lung sounds Cardio regular rate and regular rhythm GI normal to inspection, nondistended, normoactive bowel sounds Skin no rashes or lesions noted ID ID: Route of nutrition/ use of supplements: [] Nutritional Intake: [] IV Site: [] Lucia Catheter: [] Assessment & Plan Assessment/Plan (1) COVID-19: PLAN: Covid started around 04/10/21. Isolate until 04/30. Unvaccinated. Recommended vaccine after discharge. On baricitinib and dex. Stopped azithro. Completed ceftriaxone for sputum with strep pneumo. CT neg for PE. Feeling better. Will follow (2) Respiratory failure: QUALIFIERS: Chronicity: acute Respiratory failure complication: hypoxia Qualified Code(s): J96.01 - Acute respiratory failure with hypoxia
[2021-04-29] MEDS: Albuterol 2.5 MG/3 ML VIAL.NEB. INHALATION (10:49)
[2021-04-29] MEDS: Furosemide 40 MG/4 ML Vial IV (11:52)
[2021-04-29 12:10] LABS: D-Dimer Quantitative (DVT/PE) 0.45 FEU/ug/m (0.27-0.49)
[2021-04-29] MEDS: CHLORHEXIDINE GLUC 2% CLOTH 1 EACH TOWELETTE TOPICAL (14:49)
[2021-04-29] MEDS: Acetaminophen 325 MG Tablet 650 MG PO (20:21)
--- NOTE | 2021-04-29 22:48 | NURSING ---
pt proning and sleeping at this time
[2021-04-30] VITALS (26 sets, daily range): BP systolic 100–140; BP diastolic 61–105; PULSE 52–135; RESP 14–33; TEMP 36.4–36.7; O2SAT 88–100
[2021-04-30 04:25] LABS: Absolute Lymphocyte Count 1.12 X10^3/uL (0.83-4.51); Absolute Neutrophil Count 9.3 X10^3/uL (2.0-7.7); Basophil# 0.02 X10^3/uL; Basophil% 0.2 % (0-1); Eosinophil# 0.11 X10^3/uL; Hematocrit 42.6 % (40-54); Hemoglobin 13.9 g/dL (13.0-16.5); Lymphocyte # 1.12 X10^3/ul (0.83-4.51); Lymphocyte % 9.8 % (19-41); Mean Corp Hgb Conc 32.6 g/dL (32-36); Mean Corpuscular Hgb 29.9 pg (27.0-32.0); Mean Corpuscular Volume 91.6 fL (80-94); Mean Platelet Vol. 9.8 fl (6.2-12.0); Monocyte# 0.38 X10^3/uL; Monocyte% 3.3 % (0-10); NRBC Flagged by Analyzer 0 % (0-5); Neutrophil # 9.34 X10^3/uL (2.7-7.7); Neutrophil % 82.1 % (47-70); Platelet Count 372 K/mm3 (150-450); RBC Distribution Width CV 11.9 % (11.6-14.6); RBC Distribution Width SD 39.9 fl (35.1-43.9); Red Blood Count 4.65 M/mm3 (4.6-6.2); White Blood Count 11.4 K/mm3 (4.4-11.0)
[2021-04-30 04:45] LABS: ALB/GLOB Ratio 0.6 RATIO (0.9-2.4); AST(SGOT) 23 U/L (15-37); Alanine Aminotransfer ALT/SGPT 136 U/L (16-61); Albumin, Serum 2.7 g/dL (3.2-5.0); Alkaline Phosphatase 68 U/L (45-117); Anion Gap 7 (5-15); BUN 27 mg/dL (7-18); BUN/Creat Ratio 27.1 RATIO (10-20); Chloride 95 mmol/L (98-107); EST Glomerular Filtration Rate 82 mL/min (>60); Est Glom Filt Rate - Afr Amer 99 mL/min (>60); Estimated Creatinine Clearance 85.76 ml/min; Globulin 4.7 g/dL (2.2-4.2); Glucose 134 mg/dL (74-106); Protein, Total 7.4 g/dL (6.4-8.2); Sodium Level 134 mmol/L (136-145)
[2021-04-30] MEDS: 0.9% Saline Lock 10 ML Syringe IV (05:57)
--- NOTE | 2021-04-30 06:51 | PCM.PN.INT ---
Assessment & Plan Assessment/Plan (1) Respiratory failure: QUALIFIERS: Chronicity: acute Respiratory failure complication: hypoxia Qualified Code(s): J96.01 - Acute respiratory failure with hypoxia (2) COVID-19: (3) Rheumatoid arthritis: QUALIFIERS: Rheumatoid arthritis location: multiple sites Rheumatoid factor presence: with rheumatoid factor Qualified Code(s): M05.79 - Rheumatoid arthritis with rheumatoid factor of multiple sites without organ or systems involvement (4) Obesity: PLAN: RECOMMENDATIONS: 1. Continue BiPAP nightly. Continue patient on Airvo heated high flow for daytime support. 2. Continue to wean FiO2 to maintain oxygen saturations at or above 90%. 3. Continue Lovenox, Decadron and baricitinib as ordered. 4. Continue zinc and vitamin C as scheduled. 5. Continue scheduled bronchodilator therapy. 6. Awake prone positioning was encouraged. 7. Ongoing diuresis as tolerated. IMPRESSIONS: 1. Acute hypoxic respiratory failure secondary to COVID-19 and pneumococcal pneumonia The patient initially presented to the hospital with 2 weeks of progressive symptoms. Unfortunately, the patient was outside of the window to receive remdesivir. In addition to coronavirus, the patient's sputum culture was also positive for Streptococcus pneumoniae. Therefore, the patient completed a treatment course of antimicrobials. Continue patient on Airvo heated high flow throughout the day and BiPAP at night. Wean FiO2 to maintain oxygen saturations at or above 90%. In the interim, the patient will be continued on Lovenox, Decadron and baricitinib. Continue vitamin C and zinc is scheduled. Continue bronchodilator therapy. Awake prone positioning was encouraged. Continue IV Lasix as tolerated by hemodynamics and renal function. 2. Rheumatoid arthritis/BPH/history of rhinoplasty/unvaccinated status Complicates care, management, recovery and prognosis. Continue supportive measures as noted above. This note was generated with [employer] dictation software. It may contain incorrect words, spelling, and punctuation that were not noted in checking the note before signing. Subjective Subjective The patient was seen and examined at the bedside this morning. Events from the last 24 hours have been reviewed. The patient is currently afebrile, hemodynamically stable and maintaining appropriate oxygen saturations on Airvo heated high flow with an FiO2 requirement of 60% and flow rate of 60 L/min. The patient was again tolerant of BiPAP overnight with an FiO2 requirement of 60%. He is currently documented to be overall net -5.8 L for the hospital admission. The patient has completed a treatment course of antimicrobials and remains on Decadron, prophylactic Lovenox and baricitinib. The patient did prone himself last night for approximately 4 hours. Objective Data Objective Data The patient's most recent lab work, culture data and imaging studies have all been personally reviewed. Blood cultures have demonstrated no growth to date. Strep and urine Legionella antigens were negative. Sputum culture was positive for Streptococcus pneumoniae. Vital Signs: Vital Signs Temp Pulse Resp BP Pulse Ox 97.8 F 73 23 H 109/61 98 04/30/21 04:00 04/30/21 06:00 04/30/21 06:00 04/30/21 06:00 04/30/21 06:00 Oxygen Flow Rate (L/min) 60 Oxygen Delivery Method Airvo Weight: 101.8 kg Body Mass Index (BMI) 31.1 Intake & Output: Intake and Output for Last 24 Hours 04/28/21 04/29/21 04/30/21 23:59 23:59 23:59 Intake Total 1030 / 1030 1020 / 1020 320 / 320 Output Total 3300 / 3300 1950 / 1950 400 / 400 Balance -2270 / -2270 -930 / -930 -80 / -80 Lab / Micro Data Attestation: I reviewed the patient's lab results. Result Diagrams: 04/30/21 04:05 04/30/21 04:05 Labs: Laboratory Results - last 24 hr 04/29/21 11:30: D-Dimer Quant (PE/DVT) 0.45 04/30/21 04:05: WBC 11.4 H, RBC 4.65, Hgb 13.9, Hct 42.6, MCV 91.6, MCH 29.9, MCHC 32.6, RDW Std Deviation 39.9, RDW Coeff of Ede 11.9, Plt Count 372, MPV 9.8, Immature Gran % (Auto) 3.600 H, Neut % (Auto) 82.1 H, Lymph % (Auto) 9.8 L, [place] % (Auto) 3.3, Eos % (Auto) 1.0, Baso % (Auto) 0.2, Absolute Neuts (auto) 9.3 H, Absolute Lymphs (auto) 1.12, Nucleated RBC % 0 10/08/21 04:05: Sodium 134 L, Potassium 4.0, Chloride 95 L, Carbon Dioxide 32.0, Anion Gap 7, BUN 27 H, Creatinine 1.00, Estim Creat Clear Calc 85.76, Est GFR (MDRD) Af Amer 99, Est GFR (MDRD) Non-Af 82, BUN/Creatinine Ratio 27.1 H, Glucose 134 H, Calcium 9.0, Total Bilirubin 0.50, AST 23, ALT 136 H, Alkaline Phosphatase 68, Total Protein 7.4, Albumin 2.7 L, Globulin 4.7 H, Albumin/Globulin Ratio 0.6 L Micro: Microbiology 04/23/21 21:31 Sputum, Expectorated/Coughed Gram Stain - Final 04/23/21 21:31 Sputum, Expectorated/Coughed Respiratory Culture - Final Streptococcus pneumoniae 04/23/21 12:18 Blood Culture (Wb) - Anticubital Left Blood Culture - Final No growth in 5 days. 04/23/21 10:55 Blood Culture (Wb) - Anticubital Right Blood Culture - Final No growth in 5 days. 04/23/21 17:30 Urine, Clean Catch Legionella Antigen - Final 04/23/21 17:30 Urine, Clean Catch Streptococcus pneumoniae Antigen (M - Final Physical Exam Const alert and no apparent distress Constitutional Narrative: On Airvo currently. General Appearance: cooperative Nutritional Appearance: obese HEENT normocephalic and head/scalp atraumatic Eyes PERRL, EOMs intact bilaterally and conjunctivae normal Neck supple General: trachea midline Chest inspection of chest normal Resp Effort and Inspection: able to speak in complete sentences and tachypneic Auscultation: diminished lung sounds; Negative for rales, rhonchi or wheezes Cardio regular rate, regular rhythm, S1 normal heart sound and S2 normal heart sound GI normal to inspection, nondistended, normoactive bowel sounds Extremity no clubbing, cyanosis or edema Skin no rashes or lesions noted Neuro moves all extremities and no focal motor deficits Psych Mood & Affect: flat affect Charges/Coding Visit Charges Inpatient E&M: 46476 Subs Hosp L3
--- NOTE | 2021-04-30 07:24 | PN.HOSP_ITS ---
Subjective Subjective Patient has been taking out of Covid isolation. Still remains on high flow oxygen via Airvo. Plan is for patient to be transferred from the ICU to PCU Objective Data Objective Data Vital Signs: Vital Signs Temp Pulse Resp BP Pulse Ox 97.8 F 71 20 H 110/68 94 04/30/21 04:00 04/30/21 07:00 04/30/21 07:00 04/30/21 07:00 04/30/21 07:00 Oxygen Flow Rate (L/min) 60 Oxygen Delivery Method Airvo Weight: 101.8 kg Body Mass Index (BMI) 31.1 Intake & Output: Intake and Output for Last 24 Hours 04/28/21 04/29/21 04/30/21 23:59 23:59 23:59 Intake Total 1030 / 1030 1020 / 1020 320 / 320 Output Total 3300 / 3300 1950 / 1950 400 / 400 Balance -2270 / -2270 -930 / -930 -80 / -80 Lab / Micro Data Result Diagrams: 04/30/21 04:05 04/30/21 04:05 Labs: Laboratory Results - last 24 hr 04/29/21 11:30: D-Dimer Quant (PE/DVT) 0.45 04/30/21 04:05: WBC 11.4 H, RBC 4.65, Hgb 13.9, Hct 42.6, MCV 91.6, MCH 29.9, MCHC 32.6, RDW Std Deviation 39.9, RDW Coeff of Ede 11.9, Plt Count 372, MPV 9.8, Immature Gran % (Auto) 3.600 H, Neut % (Auto) 82.1 H, Lymph % (Auto) 9.8 L, [place] % (Auto) 3.3, Eos % (Auto) 1.0, Baso % (Auto) 0.2, Absolute Neuts (auto) 9.3 H, Absolute Lymphs (auto) 1.12, Nucleated RBC % 0 04/30/21 04:05: Sodium 134 L, Potassium 4.0, Chloride 95 L, Carbon Dioxide 32.0, Anion Gap 7, BUN 27 H, Creatinine 1.00, Estim Creat Clear Calc 85.76, Est GFR (MDRD) Af Amer 99, Est GFR (MDRD) Non-Af 82, BUN/Creatinine Ratio 27.1 H, Glucose 134 H, Calcium 9.0, Total Bilirubin 0.50, AST 23, ALT 136 H, Alkaline Phosphatase 68, Total Protein 7.4, Albumin 2.7 L, Globulin 4.7 H, Albumin/Globulin Ratio 0.6 L Micro: Microbiology 04/23/21 21:31 Sputum, Expectorated/Coughed Gram Stain - Final 04/23/21 21:31 Sputum, Expectorated/Coughed Respiratory Culture - Final Streptococcus pneumoniae 04/23/21 12:18 Blood Culture (Wb) - Anticubital Left Blood Culture - Final No growth in 5 days. 04/23/21 10:55 Blood Culture (Wb) - Anticubital Right Blood Culture - Final No growth in 5 days. 04/23/21 17:30 Urine, Clean Catch Legionella Antigen - Final 04/23/21 17:30 Urine, Clean Catch Streptococcus pneumoniae Antigen (M - Final Physical Exam Narrative GENERAL: On BiPAP HEENT: Atraumatic; EYES; Anicteric, Normal Conjunctiva NECK; supple, normal thyroid, RESPIRATORY: Diminished to auscultation CARDIOVASCULAR: Regular S1 S2, GI: soft, normoactive bowel sounds, : No Renal angle tenderness; EXTREMITIES: No edema, no clubbing, MUSCULOSKELETAL: no muscle waisting NEURO: Awake; no lateralizing signs. SKIN: No Rash PSYCH; Flat affect Assessment & Plan Assessment/Plan (1) COVID-19: (2) Respiratory failure: QUALIFIERS: Chronicity: acute Respiratory failure complication: hypoxia Qualified Code(s): J96.01 - Acute respiratory failure with hypoxia (3) Rheumatoid arthritis: QUALIFIERS: Rheumatoid arthritis location: multiple sites Rheumatoid factor presence: with rheumatoid factor Qualified Code(s): M05.79 - Rheumatoid arthritis with rheumatoid factor of multiple sites without organ or systems involvement (4) BPH associated with nocturia: PLAN: Patient is a 56-year-old gentleman admitted with progressive shortness of breath diagnosed with Covid pneumonia admitted to the intensive care unit where patient is currently being managed on noninvasive ventilation 1. Acute hypoxic respiratory failure ?Secondary to COVID-19. Patient apparently tested positive on 04/14/2021. Admitted to the intensive care unit managed with Decadron as well as bar icitinib. Patient was placed on noninvasive ventilation BiPAP. Patient was outside the window for remdesivir. Was also empirically treated with ceftriaxone as well as azithromycin. Consult placed to both pulmonary medicine as well as infectious disease -04/27/2021atient seen still requiring high flow oxygen. Currently on FiO2 60 L at 84%. Was able to prone during the evening ?04/28/2021 Patient seen remains in ICU. Still remains on high flow oxygen with desaturation with minimal activity.. Sputum cultures positive for Streptococcus pneumoniae. Patient on Rocephin -04/29/2021 Patient seen appears to be improving clinically but still requiring high flow oxygen. Did tolerate BiPAP during the night. Currently on Airvo with FiO2 of 60% -04/30/2021 patient has been taking out of Covid isolation. Still remains on high flow oxygen via Airvo. Plan is for patient to be transferred from the ICU to PCU 2. Rheumatoid arthritis ?Patient was being treated with nonsteroidal anti-inflammatory medications?meloxicam currently on hold 3. Allergic rhinitis -currently remains asymptomatic 4. DVT prophylaxis ?Lovenox 5. Physical deconditioning - Requested for PT OT eval and social security benefits interviewer to assist with discharge planning Charges/Coding Visit Charges Inpatient E&M: 16089 Subs Hosp L2
[2021-04-30] MEDS: Ipratropium/Albuterol Sulfate 3 ML AMPUL.NEB INHALATION ×4 (07:35→19:15)
[2021-04-30] MEDS: dexAMETHasone 4 MG Tablet 6 MG PO (08:33)
[2021-04-30] MEDS: Enoxaparin 30 MG/0.3 ML Syringe SC ×2 (08:34→20:39)
[2021-04-30] MEDS: Ascorbic Acid 500 MG Tablet 1000 MG PO ×2 (08:34→17:58)
[2021-04-30] MEDS: Docusate Sodium 100 MG Capsule 200 MG PO ×2 (08:34→20:39)
--- NOTE | 2021-04-30 11:02 | PCS.PANDOC ---
PANDEMIC DOCUMENTATION INITIATED: Date: 03/08/2021 Time: 190
--- NOTE | 2021-04-30 14:55 | CASEMGMT ---
Social Work Consult: Emotional Support. Referral source: Medical team Met with patient in room. Introduced self and social work case manager role. This social work case manager inquired as to how patient is doing. Patient reports to be doing much better. Patient reports to have been able to see patient spouse and is now feeling encouraged an hopeful. Active support and listening provided. Will continue to follow as needed. Zelalem ADAMS, OLGA
[2021-04-30] MEDS: Polyethylene Glycol 3350 17 GM PACKET PO (20:39)
[2021-05-01] VITALS (17 sets, daily range): BP systolic 96–130; BP diastolic 55–69; PULSE 65–108; RESP 14–31; TEMP 36.2–37.3; O2SAT 93–96
[2021-05-01 06:33] LABS: Absolute Lymphocyte Count 1.34 X10^3/uL (0.83-4.51); Absolute Neutrophil Count 10.2 X10^3/uL (2.0-7.7); Basophil# 0.02 X10^3/uL; Basophil% 0.2 % (0-1); Eosinophil# 0.23 X10^3/uL; Eosinophils% 1.9 % (0-5); Hematocrit 37.9 % (40-54); Hemoglobin 12.7 g/dL (13.0-16.5); Lymphocyte # 1.34 X10^3/ul (0.83-4.51); Lymphocyte % 10.8 % (19-41); Mean Corp Hgb Conc 33.5 g/dL (32-36); Mean Corpuscular Hgb 30.2 pg (27.0-32.0); Mean Platelet Vol. 9.6 fl (6.2-12.0); Monocyte# 0.37 X10^3/uL; NRBC Flagged by Analyzer 0 % (0-5); Neutrophil # 10.18 X10^3/uL (2.7-7.7); Neutrophil % 81.8 % (47-70); Platelet Count 359 K/mm3 (150-450); RBC Distribution Width CV 11.9 % (11.6-14.6); RBC Distribution Width SD 39.3 fl (35.1-43.9); Red Blood Count 4.21 M/mm3 (4.6-6.2); White Blood Count 12.4 K/mm3 (4.4-11.0)
[2021-05-01 07:00] LABS: ALB/GLOB Ratio 0.6 RATIO (0.9-2.4); AST(SGOT) 25 U/L (15-37); Alanine Aminotransfer ALT/SGPT 113 U/L (16-61); Albumin, Serum 2.4 g/dL (3.2-5.0); Alkaline Phosphatase 65 U/L (45-117); Anion Gap 7 (5-15); BUN 19 mg/dL (7-18); BUN/Creat Ratio 19.3 RATIO (10-20); Calcium,Total 8.6 mg/dL (8.5-10.1); Chloride 98 mmol/L (98-107); Creatinine, Serum 0.98 mg/dL (0.70-1.30); EST Glomerular Filtration Rate 83 mL/min (>60); Est Glom Filt Rate - Afr Amer 101 mL/min (>60); Estimated Creatinine Clearance 87.51 ml/min; Globulin 4.3 g/dL (2.2-4.2); Glucose 95 mg/dL (74-106); Potassium 3.8 mmol/L (3.5-5.1); Protein, Total 6.7 g/dL (6.4-8.2); Sodium Level 137 mmol/L (136-145)
[2021-05-01] MEDS: Ipratropium/Albuterol Sulfate 3 ML AMPUL.NEB INHALATION ×4 (07:20→19:11)
--- NOTE | 2021-05-01 08:16 | PN.HOSP_ITS ---
Subjective Subjective Patient was taken out of isolation the day prior. Transferred from ICU to PCU. Currently on 15 L nasal cannula oxygen Objective Data Objective Data Vital Signs: Vital Signs Temp Pulse Resp BP Pulse Ox 98.1 F 101 H 22 H 130/69 H 93 05/01/21 06:40 05/01/21 07:58 05/01/21 07:58 05/01/21 06:40 05/01/21 07:57 Oxygen Flow Rate (L/min) 15 Oxygen Delivery Method Nasal Cannula Weight: 101.9 kg Body Mass Index (BMI) 31.1 Intake & Output: Intake and Output for Last 24 Hours 04/29/21 04/30/21 05/01/21 23:59 23:59 23:59 Intake Total 1020 / 1020 1070 / 1070 620 / 620 Output Total 1950 / 1950 400 / 400 200 / 200 Balance -930 / -930 670 / 670 420 / 420 Lab / Micro Data Result Diagrams: 05/01/21 06:16 05/01/21 06:16 Labs: Laboratory Results - last 24 hr 05/01/21 06:16: WBC 12.4 H, RBC 4.21 L, Hgb 12.7 L, Hct 37.9 L, MCV 90.0, MCH 30.2, MCHC 33.5, RDW Std Deviation 39.3, RDW Coeff of Ede 11.9, Plt Count 359, MPV 9.6, Immature Gran % (Auto) 2.300 H, Neut % (Auto) 81.8 H, Lymph % (Auto) 10.8 L, [place] % (Auto) 3.0, Eos % (Auto) 1.9, Baso % (Auto) 0.2, Absolute Neuts (auto) 10.2 H, Absolute Lymphs (auto) 1.34, Nucleated RBC % 0 05/01/21 06:16: Sodium 137, Potassium 3.8, Chloride 98, Carbon Dioxide 32.0, Anion Gap 7, BUN 19 H, Creatinine 0.98, Estim Creat Clear Calc 87.51, Est GFR (MDRD) Af Amer 101, Est GFR (MDRD) Non-Af 83, BUN/Creatinine Ratio 19.3, Glucose 95, Calcium 8.6, Total Bilirubin 0.40, AST 25, ALT 113 H, Alkaline Phosphatase 65, Total Protein 6.7, Albumin 2.4 L, Globulin 4.3 H, Albumin/Globulin Ratio 0.6 L Micro: Microbiology 04/23/21 21:31 Sputum, Expectorated/Coughed Gram Stain - Final 04/23/21 21:31 Sputum, Expectorated/Coughed Respiratory Culture - Final Streptococcus pneumoniae 04/23/21 12:18 Blood Culture (Wb) - Anticubital Left Blood Culture - Final No growth in 5 days. 04/23/21 10:55 Blood Culture (Wb) - Anticubital Right Blood Culture - Final No growth in 5 days. 04/23/21 17:30 Urine, Clean Catch Legionella Antigen - Final 04/23/21 17:30 Urine, Clean Catch Streptococcus pneumoniae Antigen (M - Final Physical Exam Narrative GENERAL: Cooperative HEENT: Atraumatic; EYES; Anicteric, Normal Conjunctiva NECK; supple, normal thyroid, RESPIRATORY: Diminished to auscultation CARDIOVASCULAR: Regular S1 S2, GI: soft, normoactive bowel sounds, : No Renal angle tenderness; EXTREMITIES: No edema, no clubbing, MUSCULOSKELETAL: no muscle waisting NEURO: Awake; no lateralizing signs. SKIN: No Rash PSYCH; Flat affect Assessment & Plan Assessment/Plan (1) COVID-19: (2) Respiratory failure: QUALIFIERS: Chronicity: acute Respiratory failure complication: hypoxia Qualified Code(s): J96.01 - Acute respiratory failure with hypoxia (3) Rheumatoid arthritis: QUALIFIERS: Rheumatoid arthritis location: multiple sites Rheumatoid factor presence: with rheumatoid factor Qualified Code(s): M05.79 - Rheumatoid arthritis with rheumatoid factor of multiple sites without organ or systems involvement (4) BPH associated with nocturia: PLAN: Patient is a 56-year-old gentleman admitted with progressive shortness of breath diagnosed with Covid pneumonia admitted to the intensive care unit where patient is currently being managed on noninvasive ventilation 1. Acute hypoxic respiratory failure ?Secondary to COVID-19. Patient apparently tested positive on 04/14/2021. Admitted to the intensive care unit managed with Decadron as well as baricitinib. Patient was placed on noninvasive ventilation BiPAP. Patient was outside the window for remdesivir. Was also empirically treated with ceftriaxone as well as azithromycin. Consult placed to both pulmonary medicine as well as infectious disease -1Patient seen still requiring high flow oxygen. Currently on FiO2 60 L at 84%. Was able to prone during the evening ?04/28/2021 Patient seen remains in ICU. Still remains on high flow oxygen with desaturation with minimal activity.. Sputum cultures positive for Streptococcus pneumoniae. Patient on Rocephin -04/29/2021 Patient seen appears to be improving clinically but still requiring high flow oxygen. Did tolerate BiPAP during the night. Currently on Airvo with FiO2 of 60% -04/30/2021 patient has been taking out of Covid isolation. Still remains on high flow oxygen via Airvo. Plan is for patient to be transferred from the ICU to PCU -05/01/2021; Patient was taken out of isolation the day prior. Transferred from ICU to PCU. Currently on 15 L nasal cannula oxygen 2. Rheumatoid arthritis ?Patient was being treated with nonsteroidal anti-inflammatory medications?meloxicam currently on hold 3. Allergic rhinitis -currently remains asymptomatic 4. DVT prophylaxis ?Lovenox 5. Physical deconditioning - Requested for PT OT eval and social service technician to assist with discharge planning Charges/Coding Visit Charges Inpatient E&M: 39399 Subs Hosp L2
[2021-05-01] MEDS: Ascorbic Acid 500 MG Tablet 1000 MG PO ×2 (08:43→16:40)
[2021-05-01] MEDS: dexAMETHasone 4 MG Tablet 6 MG PO (08:43)
[2021-05-01] MEDS: Enoxaparin 30 MG/0.3 ML Syringe SC ×2 (08:43→20:48)
[2021-05-01] MEDS: Docusate Sodium 100 MG Capsule 200 MG PO ×2 (08:43→20:48)
[2021-05-01] MEDS: Polyethylene Glycol 3350 17 GM PACKET PO (08:43)
--- NOTE | 2021-05-01 08:47 | PN.CC_ITS ---
Assessment & Plan Assessment/Plan (1) Respiratory failure: QUALIFIERS: Chronicity: acute Respiratory failure complication: hypoxia Qualified Code(s): J96.01 - Acute respiratory failure with hypoxia (2) COVID-19: (3) Rheumatoid arthritis: QUALIFIERS: Rheumatoid arthritis location: multiple sites Rheumatoid factor presence: with rheumatoid factor Qualified Code(s): M05.79 - Rheumatoid arthritis with rheumatoid factor of multiple sites without organ or systems involvement (4) Obesity: PLAN: RECOMMENDATIONS: 1. Continue BiPAP nightly. 2. Continue to wean oxygen saturations at or above 90%. 3. Continue Lovenox, Decadron and baricitinib as ordered. 4. Continue zinc and vitamin C as scheduled. 5. Continue scheduled bronchodilator therapy. 6. Awake prone positioning was encouraged. 7. Ongoing diuresis as tolerated. Will defer need for additional Lasix to hospitalist. 8. Given improving oxygenation status, will sign off. Please call with any additional questions. IMPRESSIONS: 1. Acute hypoxic respiratory failure secondary to COVID-19 and pneumococcal pneumonia The patient initially presented to the hospital with 2 weeks of progressive symptoms. Unfortunately, the patient was outside of the window to receive remdesivir. In addition to coronavirus, the patient's sputum culture was also positive for Streptococcus pneumoniae. Therefore, the patient completed a treatment course of antimicrobials. Oxygenation status is slowly improving. Recommend continuing BiPAP on a nightly basis and weaning supplemental oxygen throughout the day to maintain saturations at or above 90%. In the interim, the patient will be continued on Lovenox, Decadron and baricitinib. Continue vitamin C and zinc is scheduled. Continue bronchodilator therapy. Awake prone positioning was encouraged. Continue IV Lasix as tolerated by hemodynamics and renal function. 2. Rheumatoid arthritis/BPH/history of rhinoplasty/unvaccinated status Complicates care, management, recovery and prognosis. Continue supportive measures as noted above. This note was generated with [employer] dictation software. It may contain incorrect words, spelling, and punctuation that were not noted in checking the note before signing. Subjective Subjective The patient was seen and examined at the bedside this morning. Events from the last 24 hours have been reviewed. The patient is currently afebrile, hemodynamically stable and maintaining appropriate oxygen saturations on 15 L/min via nasal cannula. He continues to tolerate BiPAP on a nightly basis. He is currently documented to be overall net -4.6 L for the hospital admission. The patient has completed a treatment course of antimicrobials and remains on Deca dron, prophylactic Lovenox and baricitinib. Objective Data Objective Data The patient's most recent lab work, culture data and imaging studies have all been personally reviewed. Blood cultures have demonstrated no growth to date. Strep and urine Legionella antigens were negative. Sputum culture was positive for Streptococcus pneumoniae. Vital Signs: Vital Signs Temp Pulse Resp BP Pulse Ox 99.1 F 88 20 H 107/55 L 94 05/01/21 08:40 05/01/21 08:40 05/01/21 08:40 05/01/21 08:40 05/01/21 08:40 Oxygen Flow Rate (L/min) 15 Oxygen Delivery Method Nasal Cannula Weight: 101.9 kg Body Mass Index (BMI) 31.1 Intake & Output: Intake and Output for Last 24 Hours 04/29/21 04/30/21 05/01/21 23:59 23:59 23:59 Intake Total 1020 / 1020 1070 / 1070 620 / 620 Output Total 1950 / 1950 400 / 400 200 / 200 Balance -930 / -930 670 / 670 420 / 420 Lab / Micro Data Attestation: I reviewed the patient's lab results. Result Diagrams: 05/01/21 06:16 05/01/21 06:16 Labs: Laboratory Results - last 24 hr 05/01/21 06:16: WBC 12.4 H, RBC 4.21 L, Hgb 12.7 L, Hct 37.9 L, MCV 90.0, MCH 30.2, MCHC 33.5, RDW Std Deviation 39.3, RDW Coeff of Ede 11.9, Plt Count 359, MPV 9.6, Immature Gran % (Auto) 2.300 H, Neut % (Auto) 81.8 H, Lymph % (Auto) 10.8 L, [place] % (Auto) 3.0, Eos % (Auto) 1.9, Baso % (Auto) 0.2, Absolute Neuts (auto) 10.2 H, Absolute Lymphs (auto) 1.34, Nucleated RBC % 0 05/01/21 06:16: Sodium 137, Potassium 3.8, Chloride 98, Carbon Dioxide 32.0, Anion Gap 7, BUN 19 H, Creatinine 0.98, Estim Creat Clear Calc 87.51, Est GFR (MDRD) Af Amer 101, Est GFR (MDRD) Non-Af 83, BUN/Creatinine Ratio 19.3, Glucose 95, Calcium 8.6, Total Bilirubin 0.40, AST 25, ALT 113 H, Alkaline Phosphatase 65, Total Protein 6.7, Albumin 2.4 L, Globulin 4.3 H, Albumin/Globulin Ratio 0.6 L Micro: Microbiology 04/23/21 21:31 Sputum, Expectorated/Coughed Gram Stain - Final 04/23/21 21:31 Sputum, Expectorated/Coughed Respiratory Culture - Final Streptococcus pneumoniae 04/23/21 12:18 Blood Culture (Wb) - Anticubital Left Blood Culture - Final No growth in 5 days. 04/23/21 10:55 Blood Culture (Wb) - Anticubital Right Blood Culture - Final No growth in 5 days. 04/23/21 17:30 Urine, Clean Catch Legionella Antigen - Final 04/23/21 17:30 Urine, Clean Catch Streptococcus pneumoniae Antigen (M - Final Physical Exam Const alert and no apparent distress Constitutional Narrative: Sitting in bedside recliner. General Appearance: cooperative Nutritional Appearance: obese HEENT normocephalic and head/scalp atraumatic Eyes PERRL, EOMs intact bilaterally and conjunctivae normal Neck supple General: trachea midline Chest inspection of chest normal Resp Effort and Inspection: able to speak in complete sentences Auscultation: diminished lung sounds; Negative for rales, rhonchi or wheezes Cardio regular rate, regular rhythm, S1 normal heart sound and S2 normal heart sound GI normal to inspection, nondistended, normoactive bowel sounds Extremity no clubbing, cyanosis or edema Skin no rashes or lesions noted Neuro moves all extremities and no focal motor deficits Psych cooperative and affect normal Charges/Coding Visit Charges Inpatient E&M: 95659 Subs Hosp L2
[2021-05-02] VITALS (19 sets, daily range): BP systolic 103–129; BP diastolic 55–72; PULSE 67–104; RESP 14–26; TEMP 36.4–37; O2SAT 88–98
[2021-05-02] MEDS: Mag Hydrox/Al Hydrox/Simeth 30 ML UDC PO (05:44)
[2021-05-02 06:30] LABS: Absolute Lymphocyte Count 2.32 X10^3/uL (0.83-4.51); Absolute Neutrophil Count 12.3 X10^3/uL (2.0-7.7); Basophil# 0.03 X10^3/uL; Basophil% 0.2 % (0-1); Eosinophils% 1.2 % (0-5); Hematocrit 40.7 % (40-54); Hemoglobin 13.4 g/dL (13.0-16.5); Lymphocyte # 2.32 X10^3/ul (0.83-4.51); Lymphocyte % 14.5 % (19-41); Mean Corp Hgb Conc 32.9 g/dL (32-36); Mean Corpuscular Hgb 30.4 pg (27.0-32.0); Mean Corpuscular Volume 92.3 fL (80-94); Mean Platelet Vol. 9.9 fl (6.2-12.0); Monocyte# 0.62 X10^3/uL; Monocyte% 3.9 % (0-10); NRBC Flagged by Analyzer 0 % (0-5); Neutrophil # 12.32 X10^3/uL (2.7-7.7); Neutrophil % 76.8 % (47-70); Platelet Count 437 K/mm3 (150-450); RBC Distribution Width CV 12.1 % (11.6-14.6); RBC Distribution Width SD 41.5 fl (35.1-43.9); Red Blood Count 4.41 M/mm3 (4.6-6.2)
[2021-05-02 06:51] LABS: ALB/GLOB Ratio 0.6 RATIO (0.9-2.4); AST(SGOT) 34 U/L (15-37); Alanine Aminotransfer ALT/SGPT 161 U/L (16-61); Albumin, Serum 2.6 g/dL (3.2-5.0); Alkaline Phosphatase 82 U/L (45-117); Anion Gap 10 (5-15); BUN 18 mg/dL (7-18); Calcium,Total 9.1 mg/dL (8.5-10.1); Chloride 99 mmol/L (98-107); EST Glomerular Filtration Rate 82 mL/min (>60); Est Glom Filt Rate - Afr Amer 99 mL/min (>60); Estimated Creatinine Clearance 85.76 ml/min; Globulin 4.4 g/dL (2.2-4.2); Glucose 108 mg/dL (74-106); Sodium Level 140 mmol/L (136-145)
[2021-05-02] MEDS: Ipratropium/Albuterol Sulfate 3 ML AMPUL.NEB INHALATION ×3 (07:09→19:42)
--- NOTE | 2021-05-02 08:20 | PCM.PN.HOSP ---
Subjective Subjective Patient seen continues to improve clinically he is however on 15 L of oxygen with plans to wean down Objective Data Objective Data Vital Signs: Vital Signs Temp Pulse Resp BP Pulse Ox 98.6 F 81 19 H 129/66 H 94 05/02/21 05:30 05/02/21 08:07 05/02/21 08:07 05/02/21 05:30 05/02/21 08:06 Oxygen Flow Rate (L/min) 15 Oxygen Delivery Method Nasal Cannula Weight: 101.9 kg Body Mass Index (BMI) 31.1 Intake & Output: Intake and Output for Last 24 Hours 04/30/21 05/01/21 05/02/21 23:59 23:59 23:59 Intake Total 1070 / 1070 1900 / 2140 480 / 480 Output Total 400 / 400 700 / 700 Balance 670 / 670 1200 / 1440 480 / 480 Lab / Micro Data Result Diagrams: 05/02/21 05:30 05/02/21 05:30 Labs: Laboratory Results - last 24 hr 05/02/21 05:30: WBC 16.0 H, RBC 4.41 L, Hgb 13.4, Hct 40.7, MCV 92.3, MCH 30.4, MCHC 32.9, RDW Std Deviation 41.5, RDW Coeff of Ede 12.1, Plt Count 437, MPV 9.9, Immature Gran % (Auto) 3.400 H, Neut % (Auto) 76.8 H, Lymph % (Auto) 14.5 L, [place] % (Auto) 3.9, Eos % (Auto) 1.2, Baso % (Auto) 0.2, Absolute Neuts (auto) 12.3 H, Absolute Lymphs (auto) 2.32, Nucleated RBC % 0 05/02/21 05:30: Sodium 140, Potassium 4.0, Chloride 99, Carbon Dioxide 31.0, Anion Gap 10, BUN 18, Creatinine 1.00, Estim Creat Clear Calc 85.76, Est GFR (MDRD) Af Amer 99, Est GFR (MDRD) Non-Af 82, BUN/Creatinine Ratio 18.0, Glucose 108 H, Calcium 9.1, Total Bilirubin 0.50, AST 34, ALT 161 H, Alkaline Phosphatase 82, Total Protein 7.0, Albumin 2.6 L, Globulin 4.4 H, Albumin/Globulin Ratio 0.6 L Micro: Microbiology 04/23/21 21:31 Sputum, Expectorated/Coughed Gram Stain - Final 04/23/21 21:31 Sputum, Expectorated/Coughed Respiratory Culture - Final Streptococcus pneumoniae 04/23/21 12:18 Blood Culture (Wb) - Anticubital Left Blood Culture - Final No growth in 5 days. 04/23/21 10:55 Blood Culture (Wb) - Anticubital Right Blood Culture - Final No growth in 5 days. 04/23/21 17:30 Urine, Clean Catch Legionella Antigen - Final 04/23/21 17:30 Urine, Clean Catch Streptococcus pneumoniae Antigen (M - Final Physical Exam Narrative GENERAL: Cooperative HEENT: Atraumatic; EYES; Anicteric, Normal Conjunctiva NECK; supple, normal thyroid, RESPIRATORY: Diminished to auscultation CARDIOVASCULAR: Regular S1 S2, GI: soft, normoactive bowel sounds, : No Renal angle tenderness; EXTREMITIES: No edema, no clubbing, MUSCULOSKELETAL: no muscle waisting NEURO: Awake; no lateralizing signs. SKIN: No Rash PSYCH; Flat affect Assessment & Plan Assessment/Plan (1) COVID-19: (2) Respiratory failure: QUALIFIERS: Chronicity: acute Respiratory failure complication: hypoxia Qualified Code(s): J96.01 - Acute respiratory failure with hypoxia (3) Rheumatoid arthritis: QUALIFIERS: Rheumatoid arthritis location: multiple sites Rheumatoid factor presence: with rheumatoid factor Qualified Code(s): M05.79 - Rheumatoid arthritis with rheumatoid factor of multiple sites without organ or systems involvement (4) BPH associated with nocturia: PLAN: Patient is a 56-year-old gentleman admitted with progressive shortness of breath diagnosed with Covid pneumonia admitted to the intensive care unit where patient is currently being managed on noninvasive ventilation 1. Acute hypoxic respiratory failure ?Secondary to COVID-19. Patient apparently tested positive on 04/14/2021. Admitted to the intensive care unit managed with Decadron as well as baricitinib. Patient was placed on noninvasive ventilation BiPAP. Patient was outside the window for remdesivir. Was also empirically treated with ceftriaxone as well as azithromycin. Consult placed to both pulmonary medicine as well as infectious disease -04/27/2021atient seen still requiring high flow oxygen. Currently on FiO2 60 L at 84%. Was able to prone during the evening ?04/28/2021 Patient seen remains in ICU. Still remains on high flow oxygen with desaturation with minimal activity.. Sputum cultures positive for Streptococcus pneumoniae. Patient on Rocephin -04/29/2021 Patient seen appears to be improving clinically but still requiring high flow oxygen. Did tolerate BiPAP during the night. Currently on Airvo with FiO2 of 60% -04/30/2021 patient has been taking out of Covid isolation. Still remains on high flow oxygen via Airvo. Plan is for patient to be transferred from the ICU to PCU -05/01/2021; Patient was taken out of isolation the day prior. Transferred from ICU to PCU. Currently on 15 L nasal cannula oxygen ?05/02/2021; Patient seen continues to improve clinically he is however on 15 L of oxygen with plans to wean down 2. Rheumatoid arthritis ?Patient was being treated with nonsteroidal anti-inflammatory medications?meloxicam currently on hold 3. Allergic rhinitis -currently remains asymptomatic 4. DVT prophylaxis ?Lovenox 5. Physical deconditioning - Requested for PT OT eval and health and social care teacher to assist with discharge planning Charges/Coding Visit Charges Inpatient E&M: 23960 Subs Hosp L2
[2021-05-02] MEDS: Ascorbic Acid 500 MG Tablet 1000 MG PO ×2 (09:57→17:35)
[2021-05-02] MEDS: dexAMETHasone 4 MG Tablet 6 MG PO (09:58)
[2021-05-02] MEDS: Docusate Sodium 100 MG Capsule 200 MG PO (10:00)
[2021-05-02] MEDS: Enoxaparin 30 MG/0.3 ML Syringe SC ×2 (10:01→20:59)
[2021-05-02] MEDS: Sodium Chloride 0.65% 1 SPRAY SPRAY.BTL 2 SPRAY NASAL (20:59)
[2021-05-03] VITALS (17 sets, daily range): BP systolic 102–142; BP diastolic 55–65; PULSE 70–110; RESP 14–37; TEMP 36.5–36.8; O2SAT 87–97
[2021-05-03] MEDS: Ipratropium/Albuterol Sulfate 3 ML AMPUL.NEB INHALATION ×4 (07:25→19:52)
[2021-05-03 07:30] LABS: Absolute Lymphocyte Count 1.64 X10^3/uL (0.83-4.51); Absolute Neutrophil Count 10.9 X10^3/uL (2.0-7.7); Basophil# 0.05 X10^3/uL; Basophil% 0.4 % (0-1); Eosinophil# 0.18 X10^3/uL; Eosinophils% 1.3 % (0-5); Hematocrit 38.4 % (40-54); Hemoglobin 12.6 g/dL (13.0-16.5); Lymphocyte # 1.64 X10^3/ul (0.83-4.51); Lymphocyte % 11.6 % (19-41); Mean Corp Hgb Conc 32.8 g/dL (32-36); Mean Corpuscular Hgb 29.8 pg (27.0-32.0); Mean Corpuscular Volume 90.8 fL (80-94); Mean Platelet Vol. 10.1 fl (6.2-12.0); Monocyte# 0.66 X10^3/uL; Monocyte% 4.7 % (0-10); NRBC Flagged by Analyzer 0.1 % (0-5); Neutrophil # 10.91 X10^3/uL (2.7-7.7); Neutrophil % 77.5 % (47-70); Platelet Count 413 K/mm3 (150-450); Red Blood Count 4.23 M/mm3 (4.6-6.2); White Blood Count 14.1 K/mm3 (4.4-11.0)
[2021-05-03 08:08] LABS: ALB/GLOB Ratio 0.5 RATIO (0.9-2.4); AST(SGOT) 44 U/L (15-37); Alanine Aminotransfer ALT/SGPT 167 U/L (16-61); Albumin, Serum 2.3 g/dL (3.2-5.0); Alkaline Phosphatase 82 U/L (45-117); Anion Gap 9 (5-15); BUN 15 mg/dL (7-18); BUN/Creat Ratio 16.9 RATIO (10-20); Calcium,Total 8.8 mg/dL (8.5-10.1); Chloride 100 mmol/L (98-107); Creatinine, Serum 0.89 mg/dL (0.70-1.30); EST Glomerular Filtration Rate 93 mL/min (>60); Est Glom Filt Rate - Afr Amer 113 mL/min (>60); Estimated Creatinine Clearance 96.36 ml/min; Globulin 4.5 g/dL (2.2-4.2); Glucose 81 mg/dL (74-106); Potassium 3.9 mmol/L (3.5-5.1); Protein, Total 6.8 g/dL (6.4-8.2); Sodium Level 138 mmol/L (136-145)
[2021-05-03] MEDS: Enoxaparin 30 MG/0.3 ML Syringe SC ×2 (09:22→20:18)
[2021-05-03] MEDS: Ascorbic Acid 500 MG Tablet 1000 MG PO ×2 (09:22→16:06)
--- NOTE | 2021-05-03 16:01 | PCM.PN.HOSP ---
Subjective Subjective Feels better, still maintaining his oxygen sats on 10 L nasal cannula, no issues overnight Objective Data Objective Data Vital Signs: Vital Signs Temp Pulse Resp BP Pulse Ox 97.7 F L 98 20 H 107/62 95 05/03/21 09:10 05/03/21 15:00 05/03/21 14:35 05/03/21 09:10 05/03/21 11:51 Oxygen Flow Rate (L/min) 10 Oxygen Delivery Method Nasal Cannula Weight: 228 lb 13.437 oz Body Mass Index (BMI) 31.1 Intake & Output: Intake and Output for Last 24 Hours 05/02/21 05/03/21 05/04/21 03:59 03:59 03:59 Intake Total 1640 / 1640 1080 / 1080 360 / 360 Output Total 700 / 700 Balance 940 / 940 1080 / 1080 360 / 360 Lab / Micro Data Result Diagrams: 05/03/21 06:05 05/03/21 06:05 Labs: Laboratory Results - last 24 hr 05/03/21 06:05: WBC 14.1 H, RBC 4.23 L, Hgb 12.6 L, Hct 38.4 L, MCV 90.8, MCH 29.8, MCHC 32.8, RDW Std Deviation 40.0, RDW Coeff of Ede 12.0, Plt Count 413, MPV 10.1, Immature Gran % (Auto) 4.500 H, Neut % (Auto) 77.5 H, Lymph % (Auto) 11.6 L, [place] % (Auto) 4.7, Eos % (Auto) 1.3, Baso % (Auto) 0.4, Absolute Neuts (auto) 10.9 H, Absolute Lymphs (auto) 1.64, Nucleated RBC % 0.1 05/03/21 06:05: Sodium 138, Potassium 3.9, Chloride 100, Carbon Dioxide 29.0, Anion Gap 9, BUN 15, Creatinine 0.89, Estim Creat Clear Calc 96.36, Est GFR (MDRD) Af Amer 113, Est GFR (MDRD) Non-Af 93, BUN/Creatinine Ratio 16.9, Glucose 81, Calcium 8.8, Total Bilirubin 0.30, AST 44 H, ALT 167 H, Alkaline Phosphatase 82, Total Protein 6.8, Albumin 2.3 L, Globulin 4.5 H, Albumin/Globulin Ratio 0.5 L Micro: Microbiology 04/23/21 21:31 Sputum, Expectorated/Coughed Gram Stain - Final 04/23/21 21:31 Sputum, Expectorated/Coughed Respiratory Culture - Final Streptococcus pneumoniae 04/23/21 12:18 Blood Culture (Wb) - Anticubital Left Blood Culture - Final No growth in 5 days. 04/23/21 10:55 Blood Culture (Wb) - Anticubital Right Blood Culture - Final No growth in 5 days. 04/23/21 17:30 Urine, Clean Catch Legionella Antigen - Final 04/23/21 17:30 Urine, Clean Catch Streptococcus pneumoniae Antigen (M - Final Physical Exam Const alert, oriented x3 and no apparent distress General Appearance: cooperative HEENT normocephalic and moist oral mucous membranes Eyes PERRL, EOMs intact bilaterally and conjunctivae normal Neck supple and no JVD Resp normal respiratory effort, no retractions and no use of accessory muscles Auscultation: diminished lung sounds; Negative for crackles, rales, rhonchi or wheezes Cardio regular rate, regular rhythm, S1 normal heart sound, S2 normal heart sound and no murmurs GI soft to palpation, non-tender and non-distended; Negative for hepatosplenomegaly Extremity no clubbing, cyanosis or edema Skin no rashes or lesions noted Neuro no focal motor deficits and no sensory deficits noted Psych affect normal Appearance: appropriate Assessment & Plan Assessment/Plan (1) COVID-19: (2) Respiratory failure: QUALIFIERS: Chronicity: acute Respiratory failure complication: hypoxia Qualified Code(s): J96.01 - Acute respiratory failure with hypoxia (3) Rheumatoid arthritis: QUALIFIERS: Rheumatoid arthritis location: multiple sites Rheumatoid factor presence: with rheumatoid factor Qualified Code(s): M05.79 - Rheumatoid arthritis with rheumatoid factor of multiple sites without organ or systems involvement (4) BPH associated with nocturia: PLAN: 1. Acute hypoxic respiratory failure secondary to COVID-19 pneumonia -Tested + 04/14/2021, he is outside of need for quarantine -He completed Decadron and is currently on baricitinib, he did not qualify for remdesivir based on timing -Currently maintaining his oxygen saturations on 10 L nasal cannula and he was transitioned out of the ICU on 05/01/2021. 2. Rheumatoid arthritis -Being managed with nonsteroidal anti-inflammatory -Can resume meloxicam on discharge DVT: Lovenox Charges/Coding Visit Charges Inpatient E&M: 14067 Subs Hosp L2
[2021-05-04] VITALS (15 sets, daily range): BP systolic 106–128; BP diastolic 54–74; PULSE 95–113; RESP 14–36; TEMP 36.4–36.9; O2SAT 83–97
[2021-05-04] MEDS: Ipratropium/Albuterol Sulfate 3 ML AMPUL.NEB INHALATION ×4 (07:28→19:30)
[2021-05-04] MEDS: Ascorbic Acid 500 MG Tablet 1000 MG PO ×2 (09:44→16:41)
[2021-05-04] MEDS: Enoxaparin 30 MG/0.3 ML Syringe SC ×2 (09:44→21:12)
--- NOTE | 2021-05-04 10:15 | PCM.PN.HOSP ---
Subjective Subjective Doing well, has improved oxygen status and has only requiring 6 L nasal cannula Objective Data Objective Data Vital Signs: Vital Signs Temp Pulse Resp BP Pulse Ox 97.6 F L 105 H 18 106/64 96 05/04/21 09:10 05/04/21 09:10 05/04/21 09:10 05/04/21 09:10 05/04/21 09:10 Oxygen Flow Rate (L/min) [ 10 AMBULATING with Oxygen #2] Oxygen Flow Rate (L/min) [ 6 AMBULATING with Oxygen #1] Oxygen Flow Rate (L/min) [At 6 REST with Oxygen] Oxygen Flow Rate (L/min) 6 Oxygen Delivery Method Nasal Cannula Weight: 229 lb 8.019 oz Body Mass Index (BMI) 31.1 Intake & Output: Intake and Output for Last 24 Hours 05/03/21 05/04/21 05/05/21 03:59 03:59 03:59 Intake Total 1080 / 1080 960 / 960 120 / 120 Output Total 450 / 450 Balance 1080 / 1080 960 / 960 -330 / -330 Lab / Micro Data Result Diagrams: 05/03/21 06:05 05/03/21 06:05 Micro: Microbiology 04/23/21 21:31 Sputum, Expectorated/Coughed Gram Stain - Final 04/23/21 21:31 Sputum, Expectorated/Coughed Respiratory Culture - Final Streptococcus pneumoniae 04/23/21 12:18 Blood Culture (Wb) - Anticubital Left Blood Culture - Final No growth in 5 days. 04/23/21 10:55 Blood Culture (Wb) - Anticubital Right Blood Culture - Final No growth in 5 days. 04/23/21 17:30 Urine, Clean Catch Legionella Antigen - Final 04/23/21 17:30 Urine, Clean Catch Streptococcus pneumoniae Antigen (M - Final Physical Exam Const alert, oriented x3 and no apparent distress General Appearance: cooperative HEENT normocephalic and moist oral mucous membranes Eyes PERRL, EOMs intact bilaterally and conjunctivae normal Neck supple and no JVD Resp normal respiratory effort, no retractions and no use of accessory muscles Auscultation: diminished lung sounds; Negative for crackles, rales, rhonchi or wheezes Cardio regular rate, regular rhythm, S1 normal heart sound, S2 normal heart sound and no murmurs GI soft to palpation, non-tender and non-distended; Negative for hepatosplenomegaly Extremity no clubbing, cyanosis or edema Skin no rashes or lesions noted Neuro no focal motor deficits and no sensory deficits noted Psych affect normal Appearance: appropriate Assessment & Plan Assessment/Plan (1) COVID-19: (2) Respiratory failure: QUALIFIERS: Chronicity: acute Respiratory failure complication: hypoxia Qualified Code(s): J96.01 - Acute respiratory failure with hypoxia (3) Rheumatoid arthritis: QUALIFIERS: Rheumatoid arthritis location: multiple sites Rheumatoid factor presence: with rheumatoid factor Qualified Code(s): M05.79 - Rheumatoid arthritis with rheumatoid factor of multiple sites without organ or systems involvement (4) BPH associated with nocturia: PLAN: 1. Acute hypoxic respiratory failure secondary to COVID-19 pneumonia -Tested + 04/14/2021, he is outside of need for quarantine -He completed Decadron and is currently on baricitinib, he did not qualify for remdesivir based on timing -Currently maintaining his oxygen saturations on 6 L nasal cannula and he was transitioned out of the ICU on 05/01/2021. 2. Rheumatoid arthritis -Being managed with nonsteroidal anti-inflammatory -Can resume meloxicam on discharge DVT: Lovenox Charges/Coding Visit Charges Inpatient E&M: 47237 Subs Hosp L2
--- NOTE | 2021-05-04 17:04 | CPS ---
Per Dr Lopez, pt does not need to wear the BIPAP at HS (bipap is causing pt anxiety), pt is now down to 6lpm and doing well.
[2021-05-05] VITALS (22 sets, daily range): BP systolic 102–134; BP diastolic 63–82; PULSE 85–124; RESP 14–33; TEMP 36.5–37.1; O2SAT 73–98
[2021-05-05] MEDS: Albuterol 2.5 MG/3 ML VIAL.NEB. INHALATION (05:03)
--- NOTE | 2021-05-05 05:09 | NURSING ---
Addendum entered by Yuko Sanchez 05/05/21 05:28: POX at 90% on Bipap with 50% o2 bleed in. Pt denies resp distress. Will continue to monitor. Addendum entered by Yuko Sanchez 05/05/21 05:20: Placed on bipap 50% o2 bleed in per RT. Original Note: Pt up to BR, up to chair, pox on 4L 68%, Cale from RT in to assess pt, o2 increased to 7L per nc, POX 75%. Pt states he feels ok but does feel like his chest dutton this morning. PRN aerosol given by RT. POX jumps from 75% to 81%.
--- NOTE | 2021-05-05 05:28 | CPS ---
MEDICAL LAB SCIENTIST went to check on patient at around 4:50. Pulse ox at this time was 66% on 4L NC O2. Patient reported to have just used urinal prior to MEDICAL LAB SCIENTIST entering room. MEDICAL LAB SCIENTIST gave patient 10-15 mins to recover before rechecking pulse ox. Pulse ox still reading mid 60-70%. MEDICAL LAB SCIENTIST increased patient to 7L HFNC O2. Gave x1 PRN breathing tx for tachypnea and patient reporting burning sensation in lungs. No abnormal breath sounds were heard. During breathing tx patient was increased to 12HFNC O2 for still decreased pulse ox readings. For this explained reasons, patient was placed back on BiPAP 16/10 50%. FiO2 was increased to 60% and patient's pulse ox read 90% after 10-15mins on BiPAP. Patient was self proned during the night on 4L O2 with no reported issues per nursing.
--- NOTE | 2021-05-05 05:49 | RAD_ITS ---
STUDY: X-RAY CHEST REASON FOR EXAM: Male, 56 years old patient with shortness of breath. TECHNIQUE: Single AP portable view of the chest. COMPARISON: Chest radiograph dated 04/19/[address] of the chest dated April 23, 2021. FINDINGS: Cardiac monitoring leads are present. The lungs are underexpanded. There are bilateral heterogeneous airspace consolidations throughout both lungs. There is no demonstrated pleural abnormality. There is borderline cardiomegaly. Normal mediastinum and dorene. Normal visualized pulmonary arteries. There is atherosclerotic calcification of the aortic arch with tortuosity. Normal visualized thoracic spine. Normal visualized ribs, clavicles, and shoulders. There is no demonstrated abnormality of the visualized soft tissue structures of the upper abdomen. RAD/Chest 1 View (Portable) IMPRESSION: Extensive bilateral multifocal airspace disease suggesting pneumonia. Electronically Signed: Winter Soler MD at 7:23 EDT , Service support ,
--- NOTE | 2021-05-05 06:11 | NURSING ---
Pt up in chair, has been on bipap for approx 45minutes, POX reading 91%. Pt denies resp distress, color much better and resting in chair w/legs elevated. Will continue to monitor.
[2021-05-05 06:49] LABS: Absolute Lymphocyte Count 1.44 X10^3/uL (0.83-4.51); Absolute Neutrophil Count 6.2 X10^3/uL (2.0-7.7); Basophil# 0.02 X10^3/uL; Basophil% 0.2 % (0-1); Eosinophils% 2.3 % (0-5); Hematocrit 39.2 % (40-54); Hemoglobin 12.7 g/dL (13.0-16.5); Lymphocyte # 1.44 X10^3/ul (0.83-4.51); Lymphocyte % 16.6 % (19-41); Mean Corp Hgb Conc 32.4 g/dL (32-36); Mean Corpuscular Hgb 30.1 pg (27.0-32.0); Mean Corpuscular Volume 92.9 fL (80-94); Mean Platelet Vol. 9.7 fl (6.2-12.0); Monocyte# 0.45 X10^3/uL; Monocyte% 5.2 % (0-10); NRBC Flagged by Analyzer 0 % (0-5); Neutrophil # 6.22 X10^3/uL (2.7-7.7); Neutrophil % 71.8 % (47-70); Platelet Count 363 K/mm3 (150-450); RBC Distribution Width CV 12.5 % (11.6-14.6); RBC Distribution Width SD 42.2 fl (35.1-43.9); Red Blood Count 4.22 M/mm3 (4.6-6.2); White Blood Count 8.7 K/mm3 (4.4-11.0)
[2021-05-05 07:17] LABS: Anion Gap 8 (5-15); BUN 17 mg/dL (7-18); BUN/Creat Ratio 19.2 RATIO (10-20); Calcium,Total 8.7 mg/dL (8.5-10.1); Chloride 100 mmol/L (98-107); Creatinine, Serum 0.89 mg/dL (0.70-1.30); EST Glomerular Filtration Rate 94 mL/min (>60); Est Glom Filt Rate - Afr Amer 113 mL/min (>60); Estimated Creatinine Clearance 96.36 ml/min; Glucose 119 mg/dL (74-106); Potassium 4.2 mmol/L (3.5-5.1); Sodium Level 138 mmol/L (136-145)
[2021-05-05] MEDS: Ipratropium/Albuterol Sulfate 3 ML AMPUL.NEB INHALATION ×3 (07:24→19:48)
[2021-05-05] MEDS: Enoxaparin 30 MG/0.3 ML Syringe SC ×2 (08:34→21:19)
[2021-05-05] MEDS: Furosemide 40 MG/4 ML Vial IV ×2 (08:34→17:52)
--- NOTE | 2021-05-05 10:12 | PN.HOSP_ITS ---
Subjective Subjective Had replaced on BiPAP overnight, this was the first night as he went without BiPAP and it looks like he may have lost recruitment. Chest x-ray does show increased pneumonia Objective Data Objective Data Vital Signs: Vital Signs Temp Pulse Resp BP Pulse Ox 97.9 F 104 H 30 H 114/67 95 05/05/21 08:23 05/05/21 08:23 05/05/21 08:23 05/05/21 08:23 05/05/21 08:23 Oxygen Flow Rate (L/min) [ 10 AMBULATING with Oxygen #2] Oxygen Flow Rate (L/min) [ 6 AMBULATING with Oxygen #1] Oxygen Flow Rate (L/min) [At 6 REST with Oxygen] Oxygen Flow Rate (L/min) 7 Oxygen Delivery Method Bi-pap Weight: 229 lb 11.547 oz Body Mass Index (BMI) 31.1 Intake & Output: Intake and Output for Last 24 Hours 05/04/21 05/05/21 05/06/21 03:59 03:59 03:59 Intake Total 960 / 960 960 / 960 Output Total 450 / 450 Balance 960 / 960 510 / 510 Lab / Micro Data Result Diagrams: 05/05/21 06:15 05/05/21 06:15 Labs: Laboratory Results - last 24 hr 05/05/21 06:15: WBC 8.7, RBC 4.22 L, Hgb 12.7 L, Hct 39.2 L, MCV 92.9, MCH 30.1, MCHC 32.4, RDW Std Deviation 42.2, RDW Coeff of Ede 12.5, Plt Count 363, MPV 9.7, Immature Gran % (Auto) 3.900 H, Neut % (Auto) 71.8 H, Lymph % (Auto) 16.6 L , [place] % (Auto) 5.2, Eos % (Auto) 2.3, Baso % (Auto) 0.2, Absolute Neuts (auto) 6.2, Absolute Lymphs (auto) 1.44, Nucleated RBC % 0 05/05/21 06:15: Sodium 138, Potassium 4.2, Chloride 100, Carbon Dioxide 30.0, Anion Gap 8, BUN 17, Creatinine 0.89, Estim Creat Clear Calc 96.36, Est GFR (MDRD) Af Amer 113, Est GFR (MDRD) Non-Af 94, BUN/Creatinine Ratio 19.2, Glucose 119 H, Calcium 8.7 Micro: Microbiology 04/23/21 21:31 Sputum, Expectorated/Coughed Gram Stain - Final 04/23/21 21:31 Sputum, Expectorated/Coughed Respiratory Culture - Final Streptococcus pneumoniae 04/23/21 12:18 Blood Culture (Wb) - Anticubital Left Blood Culture - Final No growth in 5 days. 04/23/21 10:55 Blood Culture (Wb) - Anticubital Right Blood Culture - Final No growth in 5 days. 04/23/21 17:30 Urine, Clean Catch Legionella Antigen - Final 04/23/21 17:30 Urine, Clean Catch Streptococcus pneumoniae Antigen (M - Final Radiography Diagnostic Testing: Radiology Impression Chest X-Ray 05/05/21 05:49 IMPRESSION: Extensive bilateral multifocal airspace disease suggesting pneumonia. Electronically Signed: Winter Soler MD at 7:23 EDT , Service support , Physical Exam Const alert, oriented x3 and no apparent distress General Appearance: cooperative HEENT normocephalic and moist oral mucous membranes Eyes PERRL, EOMs intact bilaterally and conjunctivae normal Neck supple and no JVD Resp normal respiratory effort, no retractions and no use of accessory muscles Auscultation: crackles and diminished lung sounds; Negative for rales, rhonchi or wheezes Cardio regular rate, regular rhythm, S1 normal heart sound, S2 normal heart sound and no murmurs GI soft to palpation, non-tender and non-distended; Negative for hepatosplenomegaly Extremity no clubbing, cyanosis or edema Skin no rashes or lesions noted Neuro no focal motor deficits and no sensory deficits noted Psych affect normal Appearance: appropriate Assessment & Plan Assessment/Plan (1) COVID-19: (2) Respiratory failure: QUALIFIERS: Chronicity: acute Respiratory failure complication: hypoxia Qualified Code(s): J96.01 - Acute respiratory failure with hypoxia (3) Rheumatoid arthritis: QUALIFIERS: Rheumatoid arthritis location: multiple sites Rheuma toid factor presence: with rheumatoid factor Qualified Code(s): M05.79 - Rheumatoid arthritis with rheumatoid factor of multiple sites without organ or systems involvement (4) BPH associated with nocturia: PLAN: 1. Acute hypoxic respiratory failure secondary to COVID-19 pneumonia -Tested + 04/14/2021, he is outside of need for quarantine -He completed Decadron and is currently on baricitinib, he did not qualify for remdesivir based on timing -Was maintaining oxygen saturations last evening on 4 L however had been placed on BiPAP this morning. It looks like he may have lost some improvement secondary to not wearing the BiPAP overnight as well as possibly some edema therefore we will continue with the BiPAP and give him a dose of Lasix today and then encourage him to wear the BiPAP overnight as well. -He did complete antibiotics for strep pneumonia in his sputum on 04/23/2021 -If no improvement in his respiratory status with BiPAP and Lasix, will repeat CTA of his chest 2. Rheumatoid arthritis -Being managed with nonsteroidal anti-inflammatory -Can resume meloxicam on discharge DVT: Lovenox Charges/Coding Visit Charges Inpatient E&M: 55630 Subs Hosp L2
[2021-05-05] MEDS: Ascorbic Acid 500 MG Tablet 1000 MG PO (16:09)
[2021-05-05] MEDS: 0.9% Saline Lock 10 ML Syringe IV (17:53)
[2021-05-06] VITALS (15 sets, daily range): BP systolic 94–119; BP diastolic 61–82; PULSE 78–112; RESP 14–26; TEMP 36.6–36.9; O2SAT 94–98
[2021-05-06 06:23] LABS: Absolute Lymphocyte Count 1.79 X10^3/uL (0.83-4.51); Basophil# 0.03 X10^3/uL; Basophil% 0.5 % (0-1); Eosinophil# 0.22 X10^3/uL; Eosinophils% 3.9 % (0-5); Hemoglobin 12.6 g/dL (13.0-16.5); Lymphocyte # 1.79 X10^3/ul (0.83-4.51); Lymphocyte % 31.7 % (19-41); Mean Corp Hgb Conc 33.2 g/dL (32-36); Mean Corpuscular Hgb 29.9 pg (27.0-32.0); Mean Platelet Vol. 9.5 fl (6.2-12.0); Monocyte# 0.36 X10^3/uL; Monocyte% 6.4 % (0-10); NRBC Flagged by Analyzer 0 % (0-5); Neutrophil # 3.02 X10^3/uL (2.7-7.7); Neutrophil % 53.6 % (47-70); Platelet Count 311 K/mm3 (150-450); RBC Distribution Width CV 12.2 % (11.6-14.6); RBC Distribution Width SD 39.9 fl (35.1-43.9); Red Blood Count 4.22 M/mm3 (4.6-6.2); White Blood Count 5.6 K/mm3 (4.4-11.0)
[2021-05-06 06:49] LABS: Anion Gap 6 (5-15); BUN 19 mg/dL (7-18); BUN/Creat Ratio 18.6 RATIO (10-20); Calcium,Total 8.9 mg/dL (8.5-10.1); Chloride 97 mmol/L (98-107); Creatinine, Serum 1.02 mg/dL (0.70-1.30); EST Glomerular Filtration Rate 80 mL/min (>60); Est Glom Filt Rate - Afr Amer 96 mL/min (>60); Estimated Creatinine Clearance 84.08 ml/min; Glucose 97 mg/dL (74-106); Potassium 3.9 mmol/L (3.5-5.1); Sodium Level 137 mmol/L (136-145)
[2021-05-06] MEDS: Ipratropium/Albuterol Sulfate 3 ML AMPUL.NEB INHALATION ×4 (07:26→19:28)
[2021-05-06] MEDS: Docusate Sodium 100 MG Capsule 200 MG PO (09:12)
[2021-05-06] MEDS: Ascorbic Acid 500 MG Tablet 1000 MG PO ×2 (09:13→16:42)
[2021-05-06] MEDS: Enoxaparin 30 MG/0.3 ML Syringe SC ×2 (09:13→20:55)
--- NOTE | 2021-05-06 13:21 | CT_ITS ---
STUDY: CTA CHEST REASON FOR EXAM: Male, 56 years old. R/o PE in increasing O2 in COVID RADIATION DOSAGE (If Supplied By Facility): CTDIvol = ( 18.52 ) mGy, DLP = ( 985.48 ) mGycm TECHNIQUE: The examination was performed with the intravenous administration of IV 100mL Isovue-370. Post-processing of the angiographic images was performed, with multiplanar reformation and 3D reconstruction. Individualized dose optimization techniques were used for this CT. COMPARISON: Comparison is made with prior examination dated 04/23/2021. FINDINGS: Normal enhancement of the main pulmonary artery and right and left pulmonary arteries. Normal enhancement of the bilateral peripheral pulmonary arteries. There is no demonstrated pulmonary embolism. Normal thoracic aorta and visualized great vessels. There is no demonstrated aortic dissection. Normal heart and pericardium. There are visualized mediastinal lymph nodes, which are within normal size limits, and with normal morphology. Normal hilar regions. Normal visualized trachea and bronchi. The lungs are well expanded. 1 segment, there is diffuse bilateral airspace disease worse in the lower lobes. There has been essentially no change. Normal pleura. Normal chest wall structures. Normal osseous structures. Stable 2.9 cm x 2.9 cm cyst in the left lobe of the liver. There is fluid distention of the stomach. CT/CTA Chest W/WO Contrast IMPRESSION: Diffuse bilateral pulmonary infiltrates worse in the lower lobes. There has been essentially no change. There is no evidence of pulmonary embolism. Electronically Signed: Reza Chowdhury MD at 14:24 EDT , Service support ,
--- NOTE | 2021-05-06 13:23 | PN.HOSP_ITS ---
Subjective Subjective Feels little bit after 2 doses of Lasix yesterday, however he is still requiring 10 L of oxygen. We will proceed with a CTA of his chest given that he was on 4 L 2 days ago Objective Data Objective Data Vital Signs: Vital Signs Temp Pulse Resp BP Pulse Ox 98.4 F 112 H 20 H 94/82 H 97 05/06/21 09:19 05/06/21 11:01 05/06/21 11:01 05/06/21 09:19 05/06/21 11:01 Oxygen Flow Rate (L/min) [ 10 AMBULATING with Oxygen #2] Oxygen Flow Rate (L/min) [ 6 AMBULATING with Oxygen #1] Oxygen Flow Rate (L/min) [At 6 REST with Oxygen] Oxygen Flow Rate (L/min) 10 Oxygen Delivery Method Nasal Cannula Weight: 224 lb 13.944 oz Body Mass Index (BMI) 31.1 Intake & Output: Intake and Output for Last 24 Hours 05/05/21 05/06/21 05/07/21 03:59 03:59 03:59 Intake Total 960 / 960 480 / 480 120 / 120 Output Total 450 / 450 1150 / 1150 Balance 510 / 510 -670 / -670 120 / 120 Lab / Micro Data Result Diagrams: 05/06/21 05:38 05/06/21 05:38 Labs: Laboratory Results - last 24 hr 05/06/21 05:38: WBC 5.6, RBC 4.22 L, Hgb 12.6 L, Hct 38.0 L, MCV 90.0, MCH 29.9, MCHC 33.2, RDW Std Deviation 39.9, RDW Coeff of Ede 12.2, Plt Count 311, MPV 9.5, Immature Gran % (Auto) 3.900 H, Neut % (Auto) 53.6, Lymph % (Auto) 31.7, [place] % (Auto) 6.4, Eos % (Auto) 3.9, Baso % (Auto) 0.5, Absolute Neuts (auto) 3.0, Absolute Lymphs (auto) 1.79, Nucleated RBC % 0 05/06/21 05:38: Sodium 137, Potassium 3.9, Chloride 97 L, Carbon Dioxide 34.0 H, Anion Gap 6, BUN 19 H, Creatinine 1.02, Estim Creat Clear Calc 84.08, Est GFR (MDRD) Af Amer 96, Est GFR (MDRD) Non-Af 80, BUN/Creatinine Ratio 18.6, Glucose 97, Calcium 8.9 Micro: Microbiology 04/23/21 21:31 Sputum, Expectorated/Coughed Gram Stain - Final 04/23/21 21:31 Sputum, Expectorated/Coughed Respiratory Culture - Final Streptococcus pneumoniae 04/23/21 12:18 Blood Culture (Wb) - Anticubital Left Blood Culture - Final No growth in 5 days. 04/23/21 10:55 Blood Culture (Wb) - Anticubital Right Blood Culture - Final No growth in 5 days. 04/23/21 17:30 Urine, Clean Catch Legionella Antigen - Final 04/23/21 17:30 Urine, Clean Catch Streptococcus pneumoniae Antigen (M - Final Physical Exam Const alert, oriented x3 and no apparent distress General Appearance: cooperative HEENT normocephalic and moist oral mucous membranes Eyes PERRL, EOMs intact bilaterally and conjunctivae normal Neck supple and no JVD Resp normal respiratory effort, no retractions and no use of accessory muscles Auscultation: diminished lung sounds; Negative for crackles, rales, rhonchi or wheezes Cardio regular rate, regular rhythm, S1 normal heart sound, S2 normal heart sound and no murmurs GI soft to palpation, non-tender and non-distended; Negative for hepatosplenomegaly Extremity no clubbing, cyanosis or edema Skin no rashes or lesions noted Neuro no focal motor deficits and no sensory deficits noted Psych affect normal Appearance: appropriate Assessment & Plan Assessment/Plan (1) COVID-19: (2) Respiratory failure: QUALIFIERS: Chronicity: acute Respiratory failure complication: hypoxia Qualified Code(s): J96.01 - Acute respiratory failure with hypoxia (3) Rheumatoid arthritis: QUALIFIERS: Rheumatoid arthritis location: multiple sites Rheumatoid factor presence: with rheumatoid factor Qualified Code(s): M05.79 - Rheumatoid arthritis with rheumatoid factor of multiple sites without organ or systems involvement (4) BPH associated with nocturia: PLAN: 1. Acute hypoxic respiratory failure secondary to COVID-19 pneumonia -Tested + 04/14/2021, he is outside of need for quarantine -He completed Decadron and is currently on baricitinib, he did not qualify for remdesivir based on timing -Was maintaining oxygen saturations 05/04/2021 on 4 L however had been placed on BiPAP on 05/05/2021. It looks like he may have lost some recruitment secondary to not wearing the BiPAP overnight as well as possibly some edema therefore we will continue with the BiPAP and give him a dose of Lasix as needed -He did complete antibiotics for strep pneumonia in his sputum on 04/23/2021 -He has had 2 dose of Lasix with no significant improvement and maintains oxygen saturations on 10 L therefore will obtain a CT of the chest 2. Rheumatoid arthritis -Being managed with nonsteroidal anti-inflammatory -Can resume meloxicam on discharge DVT: Lovenox Charges/Coding Visit Charges Inpatient E&M: 36842 Subs Hosp L2
[2021-05-07] VITALS (18 sets, daily range): BP systolic 97–117; BP diastolic 59–73; PULSE 85–114; RESP 12–24; TEMP 36.5–37.2; O2SAT 83–99
--- NOTE | 2021-05-07 06:09 | NURSING ---
Patient up to chair after wearing bipap HS. Put on HFNC 10L and pulse ox dropped to 83%. Increased to 15L HFNC, improved to 89%. Put bipap mask back on.
[2021-05-07 07:38] LABS: Anion Gap 7 (5-15); BUN 20 mg/dL (7-18); BUN/Creat Ratio 19.2 RATIO (10-20); Calcium,Total 8.7 mg/dL (8.5-10.1); Chloride 97 mmol/L (98-107); Creatinine, Serum 1.04 mg/dL (0.70-1.30); EST Glomerular Filtration Rate 78 mL/min (>60); Est Glom Filt Rate - Afr Amer 94 mL/min (>60); Estimated Creatinine Clearance 82.46 ml/min; Glucose 114 mg/dL (74-106); Potassium 3.8 mmol/L (3.5-5.1); Sodium Level 136 mmol/L (136-145)
[2021-05-07] MEDS: Ipratropium/Albuterol Sulfate 3 ML AMPUL.NEB INHALATION ×4 (07:55→19:58)
[2021-05-07] MEDS: Furosemide 40 MG/4 ML Vial IV (08:37)
[2021-05-07] MEDS: Ascorbic Acid 500 MG Tablet 1000 MG PO ×2 (08:38→17:42)
[2021-05-07] MEDS: Docusate Sodium 100 MG Capsule 200 MG PO ×2 (08:38→22:43)
[2021-05-07] MEDS: Enoxaparin 30 MG/0.3 ML Syringe SC ×2 (08:39→22:43)
[2021-05-07] MEDS: Oxymetazoline 0.05% 1 SPRAY SPRAY.BTL 2 SPRAY NASAL (10:30)
--- NOTE | 2021-05-07 14:19 | PCM.PN.HOSP ---
Subjective Subjective Feels well just frustrated with his slow improvement. He does well on BiPAP however in the mornings he becomes older hypoxic and needs higher flow oxygen and throughout the day this is able to come down but then repeat the cycle the next day Objective Data Objective Data Vital Signs: Vital Signs Temp Pulse Resp BP Pulse Ox 99.0 F 106 H 16 97/73 95 05/07/21 13:59 05/07/21 13:59 05/07/21 13:59 05/07/21 13:59 05/07/21 13:59 Oxygen Flow Rate (L/min) [ 10 AMBULATING with Oxygen #2] Oxygen Flow Rate (L/min) [ 6 AMBULATING with Oxygen #1] Oxygen Flow Rate (L/min) [At 6 REST with Oxygen] Oxygen Flow Rate (L/min) 6 Oxygen Delivery Method Nasal Cannula Weight: 224 lb 13.944 oz Body Mass Index (BMI) 31.1 Intake & Output: Intake and Output for Last 24 Hours 05/06/21 05/07/21 05/08/21 03:59 03:59 03:59 Intake Total 480 / 480 1320 / 1320 120 / 120 Output Total 1150 / 1150 1500 / 1500 Balance -670 / -670 1320 / 1320 -1380 / -1380 Lab / Micro Data Result Diagrams: 05/06/21 05:38 05/07/21 06:00 Labs: Laboratory Results - last 24 hr 05/07/21 06:00: Sodium 136, Potassium 3.8, Chloride 97 L, Carbon Dioxide 32.0, Anion Gap 7, BUN 20 H, Creatinine 1.04, Estim Creat Clear Calc 82.46, Est GFR (MDRD) Af Amer 94, Est GFR (MDRD) Non-Af 78, BUN/Creatinine Ratio 19.2, Glucose 114 H, Calcium 8.7 Micro: Microbiology 04/23/21 21:31 Sputum, Expectorated/Coughed Gram Stain - Final 04/23/21 21:31 Sputum, Expectorated/Coughed Respiratory Culture - Final Streptococcus pneumoniae 04/23/21 12:18 Blood Culture (Wb) - Anticubital Left Blood Culture - Final No growth in 5 days. 04/23/21 10:55 Blood Culture (Wb) - Anticubital Right Blood Culture - Final No growth in 5 days. 04/23/21 17:30 Urine, Clean Catch Legionella Antigen - Final 04/23/21 17:30 Urine, Clean Catch Streptococcus pneumoniae Antigen (M - Final Radiography Diagnostic Testing: Radiology Impression Chest CTA 05/06/21 13:21 IMPRESSION: Diffuse bilateral pulmonary infiltrates worse in the lower lobes. There has been essentially no change. There is no evidence of pulmonary embolism. Electronically Signed: Reza Chowdhury MD at 14:24 EDT , Service support , Physical Exam Const alert, oriented x3 and no apparent distress General Appearance: cooperative HEENT normocephalic and moist oral mucous membranes Eyes PERRL, EOMs intact bilaterally and conjunctivae normal Neck supple and no JVD Resp normal respiratory effort, no retractions and no use of accessory muscles Auscultation: diminished lung sounds; Negative for crackles, rales, rhonchi or wheezes Cardio regular rate, regular rhythm, S1 normal heart sound, S2 normal heart sound and no murmurs GI soft to palpation, non-tender and non-distended; Negative for hepatosplenomegaly Extremity no clubbing, cyanosis or edema Skin no rashes or lesions noted Neuro no focal motor deficits and no sensory deficits noted Psych affect normal Appearance: appropriate Assessment & Plan Assessment/Plan (1) COVID-19: (2) Respiratory failure: QUALIFIERS: Chronicity: acute Respiratory failure complication: hypoxia Qualified Code(s): J96.01 - Acute respiratory failure with hypoxia (3) Rheumatoid arthritis: QUALIFIERS: Rheumatoid arthritis location: multiple sites Rheumatoid factor presence: with rheumatoid factor Qualified Code(s): M05.79 - Rheumatoid arthritis with rheumatoid factor of multiple sites without organ or systems involvement (4) BPH associated with nocturia: PLAN: 1. Acute hypoxic respiratory failure secondary to COVID-19 pneumonia -Tested + 04/14/2021, he is outside of need for quarantine -He completed Decadron and baricitinib, he did not qualify for remdesivir based on timing -Was maintaining oxygen saturations 05/04/2021 on 4 L however had been placed on BiPAP on 05/05/2021. It looks like he may have lost some recruitment secondary to not wearing the BiPAP overnight as well as possibly some edema therefore we will continue with the BiPAP and give him a dose of Lasix as needed -He did complete antibiotics for strep pneumonia in his sputum on 04/23/2021, will repeat sputum culture -CTA of the chest was negative for PE -Continue breathing treatments 2. Rheumatoid arthritis -Being managed with nonsteroidal anti-inflammatory -Can resume meloxicam on discharge DVT: Lovenox Charges/Coding Visit Charges Inpatient E&M: 65907 Subs Hosp L2
[2021-05-08] VITALS (19 sets, daily range): BP systolic 90–132; BP diastolic 52–77; PULSE 70–116; RESP 12–19; TEMP 36.4–37.3; O2SAT 91–100
--- NOTE | 2021-05-08 02:12 | CPS ---
decreased fio2 to 45%
[2021-05-08 07:19] LABS: Anion Gap 5 (5-15); BUN 17 mg/dL (7-18); BUN/Creat Ratio 16.7 RATIO (10-20); Calcium,Total 8.5 mg/dL (8.5-10.1); Chloride 99 mmol/L (98-107); Creatinine, Serum 1.02 mg/dL (0.70-1.30); EST Glomerular Filtration Rate 80 mL/min (>60); Est Glom Filt Rate - Afr Amer 96 mL/min (>60); Estimated Creatinine Clearance 84.08 ml/min; Glucose 99 mg/dL (74-106); Potassium 3.8 mmol/L (3.5-5.1); Sodium Level 138 mmol/L (136-145)
[2021-05-08] MEDS: Ipratropium/Albuterol Sulfate 3 ML AMPUL.NEB INHALATION ×4 (07:19→18:50)
[2021-05-08] MEDS: Ascorbic Acid 500 MG Tablet 1000 MG PO ×2 (07:36→16:21)
--- NOTE | 2021-05-08 07:48 | CPS ---
pt. decreased to 6lpm. pt remains at 99%
[2021-05-08] MEDS: Docusate Sodium 100 MG Capsule 200 MG PO ×2 (09:40→21:38)
[2021-05-08] MEDS: Oxymetazoline 0.05% 1 SPRAY SPRAY.BTL 2 SPRAY NASAL ×2 (09:41→21:38)
[2021-05-08] MEDS: Enoxaparin 30 MG/0.3 ML Syringe SC ×2 (09:41→21:39)
--- NOTE | 2021-05-08 10:39 | PCM.PN.HOSP ---
Subjective Subjective Doing well, slept well overnight. His BiPAP settings were adjusted. This morning he was on 5 L nasal cannula on previous morning she was 15. We will continue to monitor throughout the day if he has continued reduction in his oxygen requirement, can trial him off of BiPAP tonight and see how he does Objective Data Objective Data Vital Signs: Vital Signs Temp Pulse Resp BP Pulse Ox 98.0 F 70 18 119/74 95 05/08/21 09:34 05/08/21 09:34 05/08/21 09:34 05/08/21 09:34 05/08/21 09:34 Oxygen Flow Rate (L/min) [ 10 AMBULATING with Oxygen #2] Oxygen Flow Rate (L/min) [ 6 AMBULATING with Oxygen #1] Oxygen Flow Rate (L/min) [At 6 REST with Oxygen] Oxygen Flow Rate (L/min) 3 Oxygen Delivery Method Nasal Cannula Weight: 227 lb 1.218 oz Body Mass Index (BMI) 31.1 Intake & Output: Intake and Output for Last 24 Hours 05/07/21 05/08/21 05/09/21 03:59 03:59 03:59 Intake Total 1320 / 1320 360 / 360 100 / 100 Output Total 1900 / 1900 200 / 200 Balance 1320 / 1320 -1540 / -1540 -100 / -100 Lab / Micro Data Result Diagrams: 05/06/21 05:38 05/08/21 06:18 Labs: Laboratory Results - last 24 hr 05/08/21 06:18: Sodium 138, Potassium 3.8, Chloride 99, Carbon Dioxide 34.0 H, Anion Gap 5, BUN 17, Creatinine 1.02, Estim Creat Clear Calc 84.08, Est GFR (MDRD) Af Amer 96, Est GFR (MDRD) Non-Af 80, BUN/Creatinine Ratio 16.7, Glucose 99, Calcium 8.5 Micro: Microbiology 05/07/21 11:19 Sputum, Expectorated/Coughed Gram Stain - Final 04/23/21 21:31 Sputum, Expectorated/Coughed Gram Stain - Final 04/23/21 21:31 Sputum, Expectorated/Coughed Respiratory Culture - Final Streptococcus pneumoniae 04/23/21 12:18 Blood Culture (Wb) - Anticubital Left Blood Culture - Final No growth in 5 days. 10/01/21 10:55 Blood Culture (Wb) - Anticubital Right Blood Culture - Final No growth in 5 days. 04/23/21 17:30 Urine, Clean Catch Legionella Antigen - Final 04/23/21 17:30 Urine, Clean Catch Streptococcus pneumoniae Antigen (M - Final Physical Exam Const alert, oriented x3 and no apparent distress General Appearance: cooperative HEENT normocephalic and moist oral mucous membranes Eyes PERRL, EOMs intact bilaterally and conjunctivae normal Neck supple and no JVD Resp normal respiratory effort, no retractions and no use of accessory muscles Auscultation: diminished lung sounds; Negative for crackles, rales, rhonchi or wheezes Cardio regular rate, regular rhythm, S1 normal heart sound, S2 normal heart sound and no murmurs GI soft to palpation, non-tender and non-distended; Negative for hepatosplenomegaly Extremity no clubbing, cyanosis or edema Skin no rashes or lesions noted Neuro no focal motor deficits and no sensory deficits noted Psych affect normal Appearance: appropriate Assessment & Plan Assessment/Plan (1) COVID-19: (2) Respiratory failure: QUALIFIERS: Chronicity: acute Respiratory failure complication: hypoxia Qualified Code(s): J96.01 - Acute respiratory failure with hypoxia (3) Rheumatoid arthritis: QUALIFIERS: Rheumatoid arthritis location: multiple sites Rheumatoid factor presence: with rheumatoid factor Qualified Code(s): M05.79 - Rheumatoid arthritis with rheumatoid factor of multiple sites without organ or systems involvement (4) BPH associated with nocturia: PLAN: 1. Acute hypoxic respiratory failure secondary to COVID-19 pneumonia -Tested + 04/14/2021, he is outside of need for quarantine -He completed Decadron and baricitinib, he did not qualify for remdesivir based on timing -Was maintaining oxygen saturations 05/04/2021 on 4 L however had been placed on BiPAP on 05/05/2021. It looks like he may have lost some recruitment secondary to not wearing the BiPAP overnight as well as possibly some edema therefore we will continue with the BiPAP and give him a dose of Lasix as needed -He did complete antibiotics for strep pneumonia in his sputum on 04/23/2021 -Repeat sputum culture on 05/07/2021 is pending with 4+ gram positive cocci in 4+ gram-negative rods -CTA of the chest was negative for PE -Continue breathing treatments 2. Rheumatoid arthritis -Being managed with nonsteroidal anti-inflammatory -Can resume meloxicam on discharge DVT: Lovenox Charges/Coding Visit Charges Inpatient E&M: 78597 Subs Hosp L2
--- NOTE | 2021-05-08 12:14 | CPS ---
pt decreased to 3 lpm. nurse aware of change. saturation 95% on 3 lpm
[2021-05-09] VITALS (16 sets, daily range): BP systolic 113–122; BP diastolic 37–77; PULSE 79–105; RESP 12–28; TEMP 36.7–37.1; O2SAT 88–100
[2021-05-09 06:30] LABS: Absolute Lymphocyte Count 1.38 X10^3/uL (0.83-4.51); Absolute Neutrophil Count 3.3 X10^3/uL (2.0-7.7); Basophil# 0.02 X10^3/uL; Basophil% 0.4 % (0-1); Eosinophil# 0.23 X10^3/uL; Eosinophils% 4.2 % (0-5); Hematocrit 33.3 % (40-54); Hemoglobin 10.8 g/dL (13.0-16.5); Lymphocyte # 1.38 X10^3/ul (0.83-4.51); Mean Corp Hgb Conc 32.4 g/dL (32-36); Mean Corpuscular Hgb 30.3 pg (27.0-32.0); Mean Corpuscular Volume 93.3 fL (80-94); Mean Platelet Vol. 9.7 fl (6.2-12.0); Monocyte# 0.56 X10^3/uL; Monocyte% 10.1 % (0-10); NRBC Flagged by Analyzer 0 % (0-5); Neutrophil # 3.29 X10^3/uL (2.7-7.7); Neutrophil % 59.4 % (47-70); Platelet Count 197 K/mm3 (150-450); RBC Distribution Width CV 12.4 % (11.6-14.6); RBC Distribution Width SD 42.7 fl (35.1-43.9); Red Blood Count 3.57 M/mm3 (4.6-6.2); White Blood Count 5.5 K/mm3 (4.4-11.0)
[2021-05-09 07:02] LABS: Anion Gap 5 (5-15); BUN 16 mg/dL (7-18); BUN/Creat Ratio 16.3 RATIO (10-20); Calcium,Total 8.4 mg/dL (8.5-10.1); Chloride 102 mmol/L (98-107); Creatinine, Serum 0.98 mg/dL (0.70-1.30); EST Glomerular Filtration Rate 83 mL/min (>60); Est Glom Filt Rate - Afr Amer 101 mL/min (>60); Estimated Creatinine Clearance 87.51 ml/min; Glucose 103 mg/dL (74-106); Sodium Level 139 mmol/L (136-145)
[2021-05-09] MEDS: Ascorbic Acid 500 MG Tablet 1000 MG PO ×2 (07:22→16:01)
[2021-05-09] MEDS: Ipratropium/Albuterol Sulfate 3 ML AMPUL.NEB INHALATION ×4 (07:44→18:56)
--- NOTE | 2021-05-09 08:28 | CPS ---
Pt on 8 lpm post ambulation. Pt would like to use bathroom at this time. This therapist spoke to nurse and suggested that O2 remain at 8lpm for pt's ambulation into bathroom. Once pt returns to chair we can continue to wean O2.
[2021-05-09] MEDS: Oxymetazoline 0.05% 1 SPRAY SPRAY.BTL 2 SPRAY NASAL ×2 (09:16→21:02)
[2021-05-09] MEDS: Enoxaparin 30 MG/0.3 ML Syringe SC ×2 (09:17→21:05)
[2021-05-09] MEDS: Docusate Sodium 100 MG Capsule 200 MG PO ×2 (09:17→21:05)
--- NOTE | 2021-05-09 11:38 | PCM.PN.HOSP ---
Subjective Subjective He needed 15 L today with ambulation to maintain oxygen saturation of 88%. We will see how he does tonight without BiPAP and then ambulate him again in the morning. He feels well otherwise Objective Data Objective Data Vital Signs: Vital Signs Temp Pulse Resp BP Pulse Ox 98.1 F 100 19 H 121/68 H 94 05/09/21 09:14 05/09/21 09:14 05/09/21 09:14 05/09/21 09:14 05/09/21 09:14 Oxygen Flow Rate (L/min) [ 10 AMBULATING with Oxygen #2] Oxygen Flow Rate (L/min) [ 15 AMBULATING with Oxygen #1] Oxygen Flow Rate (L/min) [At 3 REST with Oxygen] Oxygen Flow Rate (L/min) 3 Oxygen Delivery Method Nasal Cannula Weight: 231 lb 11.293 oz Body Mass Index (BMI) 31.1 Intake & Output: Intake and Output for Last 24 Hours 05/08/21 05/09/21 05/10/21 03:59 03:59 03:59 Intake Total 360 / 360 1150 / 1150 100 / 100 Output Total 1900 / 1900 850 / 850 125 / 125 Balance -1540 / -1540 300 / 300 -25 / -25 Lab / Micro Data Result Diagrams: 05/09/21 05:35 05/09/21 05:35 Labs: Laboratory Results - last 24 hr 05/09/21 05:35: WBC 5.5, RBC 3.57 L, Hgb 10.8 L, Hct 33.3 L, MCV 93.3, MCH 30.3, MCHC 32.4, RDW Std Deviation 42.7, RDW Coeff of Ede 12.4, Plt Count 197, MPV 9.7, Immature Gran % (Auto) 0.900, Neut % (Auto) 59.4, Lymph % (Auto) 25.0, [place] % (Auto) 10.1 H, Eos % (Auto) 4.2, Baso % (Auto) 0.4, Absolute Neuts (auto) 3.3, Absolute Lymphs (auto) 1.38, Nucleated RBC % 0 05/09/21 05:35: Sodium 139, Potassium 4.0, Chloride 102, Carbon Dioxide 32.0, Anion Gap 5, BUN 16, Creatinine 0.98, Estim Creat Clear Calc 87.51, Est GFR (MDRD) Af Amer 101, Est GFR (MDRD) Non-Af 83, BUN/Creatinine Ratio 16.3, Glucose 103, Calcium 8.4 L Micro: Microbiology 05/07/21 11:19 Sputum, Expectorated/Coughed Gram Stain - Final 05/07/21 11:19 Sputum, Expectorated/Coughed Respiratory Culture - Preliminary Staphylococcus aureus 04/23/21 21:31 Sputum, Expectorated/Coughed Gram Stain - Final 04/23/21 21:31 Sputum, Expectorated/Coughed Respiratory Culture - Final Streptococcus pneumoniae 04/23/21 12:18 Blood Culture (Wb) - Anticubital Left Blood Culture - Final No growth in 5 days. 04/23/21 10:55 Blood Culture (Wb) - Anticubital Right Blood Culture - Final No growth in 5 days. 04/23/21 17:30 Urine, Clean Catch Legionella Antigen - Final 04/23/21 17:30 Urine, Clean Catch Streptococcus pneumoniae Antigen (M - Final Physical Exam Const alert, oriented x3 and no apparent distress General Appearance: cooperative HEENT normocephalic and moist oral mucous membranes Eyes PERRL, EOMs intact bilaterally and conjunctivae normal Neck supple and no JVD Resp normal respiratory effort, no retractions and no use of accessory muscles Auscultation: diminished lung sounds; Negative for crackles, rales, rhonchi or wheezes Cardio regular rate, regular rhythm, S1 normal heart sound, S2 normal heart sound and no murmurs GI soft to palpation, non-tender and non-distended; Negative for hepatosplenomegaly Extremity no clubbing, cyanosis or edema Skin no rashes or lesions noted Neuro no focal motor deficits and no sensory deficits noted Psych affect normal Appearance: appropriate Assessment & Plan Assessment/Plan (1) COVID-19: (2) Respiratory failure: QUALIFIERS: Chronicity: acute Respiratory failure complication: hypoxia Qualified Code(s): J96.01 - Acute respiratory failure with hypoxia (3) Rheumatoid arthritis: QUALIFIERS: Rheumatoid arthritis location: multiple sites Rheumatoid factor presence: with rheumatoid factor Qualified Code(s): M05.79 - Rheumatoid arthritis with rheumatoid factor of multiple sites without organ or systems involvement (4) BPH associated with nocturia: PLAN: 1. Acute hypoxic respiratory failure secondary to COVID-19 pneumonia -Tested + 04/14/2021, he is outside of need for quarantine -He completed Decadron and baricitinib, he did not qualify for remdesivir based on timing -Was maintaining oxygen saturations 05/04/2021 on 4 L however had been placed on BiPAP on 05/05/2021. It looks like he may have lost some recruitment secondary to not wearing the BiPAP overnight as well as possibly some edema therefore we will continue with the BiPAP and give him a dose of Lasix as needed. Can try again to not wear BiPAP tonight to see if he loses recruitment again -He did complete antibiotics for strep pneumonia in his sputum on 04/23/2021 -Repeat sputum culture on 05/07/2021 is pending with 4+ gram positive cocci in 4+ gram-negative rods -CTA of the chest was negative for PE -Continue breathing treatments, he needed 15 L on 05/09/2021 to ambulate at 88% -Plan for Lasix in the morning and repeat ambulation 2. Rheumatoid arthritis -Being managed with nonsteroidal anti-inflammatory -Can resume meloxicam on discharge DVT: Lovenox Charges/Coding Visit Charges Inpatient E&M: 79383 Subs Hosp L2
[2021-05-10] VITALS (9 sets, daily range): BP systolic 118–120; BP diastolic 63–75; PULSE 89–104; RESP 12–33; TEMP 36.6–36.9; O2SAT 83–95
[2021-05-10 05:36] LABS: Absolute Lymphocyte Count 1.39 X10^3/uL (0.83-4.51); Absolute Neutrophil Count 2.5 X10^3/uL (2.0-7.7); Basophil# 0.02 X10^3/uL; Basophil% 0.4 % (0-1); Eosinophil# 0.24 X10^3/uL; Eosinophils% 5.3 % (0-5); Hematocrit 33.3 % (40-54); Hemoglobin 10.7 g/dL (13.0-16.5); Lymphocyte # 1.39 X10^3/ul (0.83-4.51); Lymphocyte % 30.4 % (19-41); Mean Corp Hgb Conc 32.1 g/dL (32-36); Mean Corpuscular Hgb 30.1 pg (27.0-32.0); Mean Corpuscular Volume 93.5 fL (80-94); Monocyte# 0.38 X10^3/uL; Monocyte% 8.3 % (0-10); NRBC Flagged by Analyzer 0 % (0-5); Neutrophil % 54.7 % (47-70); Platelet Count 175 K/mm3 (150-450); RBC Distribution Width CV 12.4 % (11.6-14.6); RBC Distribution Width SD 43.1 fl (35.1-43.9); Red Blood Count 3.56 M/mm3 (4.6-6.2); White Blood Count 4.6 K/mm3 (4.4-11.0)
[2021-05-10 06:11] LABS: Anion Gap 6 (5-15); BUN 18 mg/dL (7-18); BUN/Creat Ratio 15.3 RATIO (10-20); Calcium,Total 8.4 mg/dL (8.5-10.1); Chloride 104 mmol/L (98-107); Creatinine, Serum 1.18 mg/dL (0.70-1.30); EST Glomerular Filtration Rate 67 mL/min (>60); Est Glom Filt Rate - Afr Amer 82 mL/min (>60); Estimated Creatinine Clearance 72.68 ml/min; Glucose 149 mg/dL (74-106); Potassium 3.8 mmol/L (3.5-5.1); Sodium Level 140 mmol/L (136-145)
[2021-05-10] MEDS: Ipratropium/Albuterol Sulfate 3 ML AMPUL.NEB INHALATION ×2 (07:35→11:30)
[2021-05-10] MEDS: Oxymetazoline 0.05% 1 SPRAY SPRAY.BTL 2 SPRAY NASAL (08:40)
[2021-05-10] MEDS: Docusate Sodium 100 MG Capsule 200 MG PO (08:41)
[2021-05-10] MEDS: Enoxaparin 30 MG/0.3 ML Syringe SC (08:42)
[2021-05-10] MEDS: Ascorbic Acid 500 MG Tablet 1000 MG PO (08:42)
--- NOTE | 2021-05-10 10:46 | DS.PCM_ITS ---
Providers Date of Admission: 04/23/21 Primary Care Physician: Dr. Speedy Jolly MD Consultations 04/23/21 16:26 Consult: Automatic [employer] Operator / Pulmonary Medicine Routine Consulting Provider: Pulmonary Medicine risa [place] Reason for Consult: Resp failure/COVID-19 pneumonia EMERGENT Consult: No Notified: Yes Date Notified: 04/23/21 Time Notified: 15:02 Method of Notification: Verbal 04/23/21 16:50 Consult: Infectious Disease Routine Consulting Provider: Alejandro Wright Reason for Consult: COVId EMERGENT Consult: No Notified: Yes Date Notified: 04/23/21 Time Notified: 18:24 Method of Notification: Answering Service Reason For Visit: RESP FAILURE/COVID-19 Diagnosis Discharge Diagnosis (1) COVID-19: Status: Acute Code(s): U07.1 - COVID-19 (2) Respiratory failure: Status: Acute Code(s): J96.90 - Respiratory failure, unspecified, unspecified whether with hypoxia or hypercapnia Qualifiers: Chronicity: acute Respiratory failure complication: hypoxia Qualified Code(s): J96.01 - Acute respiratory failure with hypoxia (3) Rheumatoid arthritis: Status: Chronic Code(s): M06.9 - Rheumatoid arthritis, unspecified Qualifiers: Rheumatoid arthritis location: multiple sites Rheumatoid factor presence: with rheumatoid factor Qualified Code(s): M05.79 - Rheumatoid arthritis with rheumatoid factor of multiple sites without organ or systems involvement (4) BPH associated with nocturia: Status: Chronic Code(s): N40.1 - Benign prostatic hyperplasia with lower urinary tract symptoms; R35.1 - Nocturia Medications at Discharge Home Medications meloxicam 15 mg PO DAILY 04/18/21 ondansetron 4 mg PO Q8H PRN 04/23/21 Hospital Course Operations None Procedures None Summary of Care Provided Minutes Spent on Discharge: 45 Hospital Course: Mr. Paredes is a 56-year-old white male presented to emergency department [facility] on 04/23/2021 with progressive shortness of breath. He was diagnosed with COVID-19 infection on 04/14/2021 and was seen in the emergency department at that time. He was seen again in the ED on 04/19/2021 and had hypoxia at that time that required a discharge home with 2 L of nasal cannula. He was also given Decadron at that time. He then represented on 05/13/2021 with worsening shortness of breath, persistent fevers, poor appetite, and generalized weakness. He was not vaccinated. At that emergency department visit he required 4 to 13 L with rapid decline in the emergency department and was therefore admitted to the ICU. Since he presented 10 days outside the window of symptom onset he was not a candidate for remdesivir but was placed on Decadron and completed a 10-day course during his hospitalization. He was initially on nasal cannula but then rapidly progressed to requiring BiPAP 13/02. He was slowly weaned to air Vo and then progressively weaned to regular nasal cannula. At the time of discharge, he required 6 L nasal cannula with exertion and 2 L at rest to maintain oxygen saturations greater than 90%. In addition to his COVID- 19 infection he was found to have a strep pneumo pneumonia for which he was placed on antimicrobials and completed a course. Given the severity of his infection he was also started and completed a course of baricitinib during his hospital course. He was maintained on prophylactic enoxaparin at 30 mg twice daily during his hospital course. He had 2 CTAs of his chest which were both negative for pulmonary embolus. Intermittent Lasix was utilized during his hospital course. An aggressive pulmonary toilet including incentive spirometer and Acapella was utilized during his hospitalization. On 05/10/2021 we were able to ambulate him with requiring no more than 6 L of nasal cannula and he was therefore cleared for discharge. He will require supplemental home oxygen for period of time and we discussed the importance of follow-up for weaning oxygen. He was instructed to continue his incentive spirometer and Acapella after discharge and continue increased mobilization throughout his house but not over exertion. He is to follow-up with his primary care physician in 2 to 4 weeks and pulmonology within the next 3 months. We did also recommend he follow-up with a COVID-19 vaccination. Discharge diagnoses: Acute hypoxic respiratory failure COVID-19 infection Rheumatoid arthritis BPH Normocytic anemia Obesity Physical Exam Const alert, oriented x3, no apparent distress, no limitations and well nourished Constitutional Narrative: Upper middle-aged white male sitting up in a chair, watching television, on nasal cannula, appears comfortable, nontoxic General Appearance: cooperative, comfortable, well kempt and well developed Orientation / Consciousness: awake Exam Limitations: no limitations Nutritional Appearance: obese HEENT normocephalic Eyes PERRL, EOMs intact bilaterally and conjunctivae normal Eyes Narrative: No scleral icterus Neck no lymphadenopathy, supple, no JVD and no carotid bruits Resp normal respiratory effort, no retractions, no use of accessory muscles and clear to auscultation bilaterally Auscultation: Negative for crackles, rales, rhonchi or wheezes Cardio regular rate, regular rhythm, S1 normal heart sound, S2 normal heart sound, no murmurs, no rub, no gallops, no clicks and no JVD GI normal to inspection, nondistended, normoactive bowel sounds, soft to palpation, non-tender and non-distended; Negative for hepatosplenomegaly Extremity normal to inspection, full ROM and no clubbing, cyanosis or edema Skin no rashes or lesions noted, no wounds, skin turgor normal and no jaundice Neuro oriented x3, CN's II-XII intact bilaterally, moves all extremities and no focal motor deficits Sensorium / Orientation: awake, alert, oriented to person, oriented to place and oriented to time Speech: speech normal Motor Exam: strength 5/5 throughout Psych affect normal Weight / BMI Weight Weight: 105.6 kg Body Mass Index (BMI) 31.1 ABG / Lab / Microbiology Data Result Diagrams: 05/10/21 05:00 05/10/21 05:00 Laboratory: Laboratory Results - last 24 hr 05/10/21 05:00: WBC 4.6, RBC 3.56 L, Hgb 10.7 L, Hct 33.3 L, MCV 93.5, MCH 30.1, MCHC 32.1, RDW Std Deviation 43.1, RDW Coeff of Ede 12.4, Plt Count 175, MPV 10 .0, Immature Gran % (Auto) 0.900, Neut % (Auto) 54.7, Lymph % (Auto) 30.4, [place] % (Auto) 8.3, Eos % (Auto) 5.3 H, Baso % (Auto) 0.4, Absolute Neuts (auto) 2.5, Absolute Lymphs (auto) 1.39, Nucleated RBC % 0 05/10/21 05:00: Sodium 140, Potassium 3.8, Chloride 104, Carbon Dioxide 30.0, Anion Gap 6, BUN 18, Creatinine 1.18, Estim Creat Clear Calc 72.68, Est GFR (MDRD) Af Amer 82, Est GFR (MDRD) Non-Af 67, BUN/Creatinine Ratio 15.3, Glucose 149 H, Calcium 8.4 L Microbiology: Microbiology 05/07/21 11:19 Sputum, Expectorated/Coughed Gram Stain - Final 05/07/21 11:19 Sputum, Expectorated/Coughed Respiratory Culture - Final Staphylococcus aureus 04/23/21 21:31 Sputum, Expectorated/Coughed Gram Stain - Final 04/23/21 21:31 Sputum, Expectorated/Coughed Respiratory Culture - Final Streptococcus pneumoniae 04/23/21 12:18 Blood Culture (Wb) - Anticubital Left Blood Culture - Final No growth in 5 days. 04/23/21 10:55 Blood Culture (Wb) - Anticubital Right Blood Culture - Final No growth in 5 days. 04/23/21 17:30 Urine, Clean Catch Legionella Antigen - Final 04/23/21 17:30 Urine, Clean Catch Streptococcus pneumoniae Antigen (M - Final D/C Instructions Discharge Diet: No restrictions Discharge Activity: Return to Normal Activity Meaningful Use Info Meaningful Use Diagnoses (Choose all that apply): None applicable Discharge Plan Admission Admit Date/Time: 04/23/21 13:59 Primary Reason for Your Visit: COVID-19 pneumonia Attending Provider: Augusta Whitley Primary Care Provider: Speedy Jolly Consulting Providers: Alejandro Wright ; Lowell Lopez ; Yobani Austin ; Cee Roberson [employer] Discharge Orders/Prescriptions Prescriptions: Continued meloxicam 15 mg tablet 15 mg PO DAILY RF: 0 ondansetron 4 mg tablet,disintegrating 4 mg PO Q8H PRN (Reason: Nausea) RF: 0 Discontinued dexamethasone 6 mg tablet 6 mg PO DAILY RF: 0 Referrals / Follow Up: Lowell Lopez MD [STAFF PHYSICIAN] - Within 3 Months (The office will be contacting you with an appointment. If you do not hear from them in 2 days please give them a call. ) Speedy Jolly MD [Primary Care Provider] - Within 1 Week (They will be calling you on your cellphone to setup a hospital follow up appointment. ) Disposition Disposition (needs filled in before D/C Order can be placed): Home, Self Care Charges/Coding Visit Charges Inpatient E&M: 14834 Disch Hosp
--- NOTE | 2021-05-10 11:20 | CASEMGMT ---
Pt is normally on 2L continuous thru [employer] but now qualifies for 6L w/ exertion and is able to be on his 2L at rest. [place] [facility] [place], voices understanding. Pt states will bring in oxygen tank. Pt has been independent in room and states no further concerns/needs with going home at this time. Ayush LUQUE CM
--- NOTE | 2021-05-10 13:37 | NURSING ---
This RN reviewed SN charting
--- NOTE | 2021-05-11 14:23 | CASEMGMT ---
REBEL GAGNON Discharge Follow-up Phone Call: VIMAL: Ian Strata: 4 Call Date: 05/11/21 Discharge Date: 05/10/21 Time of Call: 1422 Duration: 3 min Admitting Diagnosis: covid REBEL GAGNON completed follow-up phone call after recent hospitalization. Patient states he is doing better. Patient had no questions or concerns regarding discharge instruction. Patient has made follow-up appts. Patient states he has been wearing his home oxygen. Patient had no further questions or concerns at this time.
== END 2021-05-10 13:12 | disposition home or self-care (01) | DRG 177 ==
LOC: ED 13:35 → ICU 04-24 07:14 → PCU 05-03 07:12 → ICU 05-03 10:09
PROVIDERS: Family Medicine; Internal Medicine; Internal Medicine Critical Care Medicine; Admitting Provider Internal Medicine; Emergency Provider Emergency Medicine; PCP Family Medicine; Visit Provider Internal Medicine
DX: U07.1 COVID-19 (principal); J96.01 Acute respiratory failure with hypoxia; J12.82 Pneumonia due to coronavirus disease 2019; J13 Pneumonia due to Streptococcus pneumoniae; E86.0 Dehydration; M05.79 Rheumatoid arthritis with rheumatoid factor of multiple sites without organ or systems involvement; N40.1 Benign prostatic hyperplasia with lower urinary tract symptoms; R35.1 Nocturia; E66.9 Obesity, unspecified; Z68.32 Body mass index [BMI] 32.0-32.9, adult; Z99.81 Dependence on supplemental oxygen; Z79.1 Long term (current) use of non-steroidal anti-inflammatories (NSAID); Z79.899 Other long term (current) drug therapy
CPT/HCPCS: 36415; 71045; 71275; 80048; 80053; 83605; 83735; 83880; 84145; 84484; 85025; 85379; 87040; 87070; 87077; 87186; 87205; 87449; 93005; 94002; 94003; 94640; 94660; 94667; 94668; 96361; 96374; 97110; 97161; 97165; 97530; 97802; 97803; 99283; 99284; 99285; J7040; Q9967; A4216; J0696; J1940; J2405

== ENCOUNTER → 2021-06-15 07:02 | Outpatient (CLI) | payer OTHER, SELFPAY ==
--- NOTE | 2021-06-15 10:38 | PFTCOMP ---
COMPLETE PULMONARY FUNCTION TEST INTERPRETATION Brief HPI: Patient is a 56 year old male, currently under the care of Cee Roberson, who presents to [facility] for complete pulmonary function tests secondary to diagnosis of post COVID-19. Respiratory therapist reports good effort and reproducible results. Interpretation: Forced expiration spirometry shows no large airways obstructive ventilatory defect with an FEV1 of 47% predicted. There is no significant bronchodilator response by strict ATS criteria. Spirograms are of good quality and plateau normally. The respiratory flow volume loop shows a normal pattern. Lung volumes by body plethysmography show a severely decreased total lung capacity at 3.33 L, 48% predicted. All other lung volumes are reduced symmetrically. Diffusion capacity by carbon monoxide is decreased at 39% predicted. The airway resistance is normal. Compared to previous pulmonary function tests from 04/26/2019, there has been a significant reduction in all tested values. 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
== END ==
PROVIDERS: PCP Family Medicine; Referring Provider Nurse Practitioner Acute Care; Visit Provider Nurse Practitioner Acute Care
DX: U07.1 COVID-19 (principal)
CPT/HCPCS: 94060; 94726; 94729

== ENCOUNTER → 2021-06-18 12:55 | Outpatient (CLI) | payer OTHER, SELFPAY ==
[2021-06-18 14:19] VITALS: PULSE 100; PULSE 105; PULSE 110; PULSE 111; PULSE 113; PULSE 116; PULSE 118; PULSE 99; O2SAT 85; O2SAT 86; O2SAT 90; O2SAT 93; O2SAT 94; O2SAT 96
--- NOTE | 2021-06-18 14:26 | CPS ---
PATIENT ARRIVED ON HIS OWN DEMAND FLOW POC AT 4LPM WHICH HE HAS HAD SINCE D/C FROM HOSPITAL POST COVID X 1 MONTH. PLACED ON RA PRIOR TO START OF TEST WHILE EXPLAINED TEST AND OBTAINED VITALS. WALK BEGAN ON RA, WITHIN 30 SEC, SPO2 AT 85%, PT PLACED ON 2LPM DEMAND FLOW(HE WEARS THIS DEVICE WHILE AT WORK). SPO2 RETURNED QUICKLY TO 93% HOWEVER AT SECOND MINUTE SPO2 86% 2LPM (PT TALKING). PLACED ON 3LPM DEMAND FLOW AND PT LIMITED CONVERSATION, SPO2 MAINTAINED FOR DURATION OF TESTING. PT RECEIVES OXYGEN THROUGH [facility].
--- NOTE | 2021-06-19 05:35 | PCM.PSN.6M ---
PSN 6 Minute Walk Test 6 Minute Walk Test 6 Minute Walk Test: 6 Minute Walk Test PSN:6-Minute Walk Test Start: 06/18/21 14:18 Freq: Status: Active Protocol: RESP.6MINW Document 06/18/21 14:19 [facility] (Rec: 06/18/21 14:32 [facility] [id number]) 6 Minute Walk Test Date Performed 06/18/21 Time Performed 13:30 Height 5 ft 11 in Weight: 108.862 kg Weight in Pounds 240.[address]: Lowell Lopez Assistive device used: None Pre-test Oxygen Delivery Method Room Air Pulse Ox (%) 93 Pulse Rate (60-100 beats/min) 99 Dyspnea Edgar Scale (0-10) 0 1st minute Oxygen Delivery Method Room Air Pulse Ox (%) 85 Pulse Rate (60-100 beats/min) 116 H Dyspnea Edgar Scale (0-10) 0 Number of Rests Taken 0 2nd minute Oxygen Flow Rate (L/min) (L/min) 2 Oxygen Delivery Method Nasal Cannula Pulse Ox (%) 86 Pulse Rate (60-100 beats/min) 118 H Dyspnea Edgar Scale (0-10) 0 Number of Rests Taken 0 3rd minute Oxygen Flow Rate (L/min) (L/min) 3 Oxygen Delivery Method Nasal Cannula Pulse Ox (%) 96 Pulse Rate (60-100 beats/min) 111 H Dyspnea Edgar Scale (0-10) 0 Number of Rests Taken 0 4th minute Oxygen Flow Rate (L/min) (L/min) 3 Oxygen Delivery Method Nasal Cannula Pulse Ox (%) 93 Pulse Rate (60-100 beats/min) 113 H Dyspnea Edgar Scale (0-10) 0 Number of Rests Taken 0 5th minute Oxygen Flow Rate (L/min) (L/min) 3 Oxygen Delivery Method Nasal Cannula Pulse Ox (%) 90 Pulse Rate (60-100 beats/min) 110 H Dyspnea Edgar Scale (0-10) 0 Number of Rests Taken 0 6th minute Oxygen Flow Rate (L/min) (L/min) 3 Oxygen Delivery Method Nasal Cannula Pulse Ox (%) 90 Pulse Rate (60-100 beats/min) 105 H Dyspnea Edgar Scale (0-10) 0 Number of Rests Taken 0 Post-test Oxygen Flow Rate (L/min) (L/min) 3 Oxygen Delivery Method Nasal Cannula Pulse Ox (%) 94 Pulse Rate (60-100 beats/min) 100 Dyspnea Edgar Scale (0-10) 0 Full Laps Walked 17 Partial Lap, Number of Tiles Walked 43 Total Distance Walked (ft) 1046 06/18/21 14:26 Cardiopulmonary Services by Tamera Huang PATIENT ARRIVED ON HIS OWN DEMAND FLOW POC AT 4LPM WHICH HE HAS HAD SINCE D/C FROM HOSPITAL POST COVID X 1 MONTH. PLACED ON RA PRIOR TO START OF TEST WHILE EXPLAINED TEST AND OBTAINED VITALS. WALK BEGAN ON RA, WITHIN 30 SEC, SPO2 AT 85%, PT PLACED ON 2LPM DEMAND FLOW(HE WEARS THIS DEVICE WHILE AT WORK). SPO2 RETURNED QUICKLY TO 93% HOWEVER AT SECOND MINUTE SPO2 86% 2LPM (PT TALKING). PLACED ON 3LPM DEMAND FLOW AND PT LIMITED CONVERSATION, SPO2 MAINTAINED FOR DURATION OF TESTING. PT RECEIVES OXYGEN THROUGH [facility]. Initialized on 06/18/21 14:26 - END OF NOTE Interpretation Interpretation: The patient was able to travel 1046 feet over the course of 6 minutes with no assist devices or breaks. The patient was noted to be 93% on room air, but desaturated to 85% in the first minute. The patient required 3 L nasal cannula with all exertion. Patient did have a reflux tachycardia as high as 118 bpm during testing. These findings are consistent with a respiratory limitation exercise tolerance. Recommendations Recommendations: No supplemental oxygen is required at rest, but patient should be using 3 L nasal cannula with any exertion.
== END ==
PROVIDERS: PCP Family Medicine; Referring Provider Nurse Practitioner Acute Care; Visit Provider Nurse Practitioner Acute Care
DX: U07.1 COVID-19 (principal)
CPT/HCPCS: 94618

== ENCOUNTER → 2022-01-26 | Outpatient (CLI) | payer OTHER, SELFPAY ==
--- NOTE | 2022-01-26 14:01 | PFTCOMP ---
COMPLETE PULMONARY FUNCTION TEST INTERPRETATION Brief HPI: Patient is a 56-year-old male, currently under the care of myself, who presents to [facility] for complete pulmonary function tests secondary to diagnosis of respiratory failure. Respiratory therapist reports good effort and reproducible results. Interpretation: Forced expiration spirometry shows no large airways obstructive ventilatory defect with an FEV1 of 67% predicted. There is no significant bronchodilator response by strict ATS criteria. Spirograms are of good quality and plateau normally. The respiratory flow volume loop shows a normal pattern. Lung volumes by body plethysmography show a mild decrease in total lung capacity at 5.21 L, 73% predicted. All other lung volumes are reduced symmetrically. Diffusion capacity by carbon monoxide is decreased at 69% predicted. The airway resistance is normal. Compared to previous pulmonary function tests from 06/15/2021, there is been a significant improvement in all measured values by almost 50% each. Impression: Mild restrictive ventilatory defect with a symmetric reduction diffusing capacity, but significant improvement compared to previous testing
== END | disposition home or self-care (01) ==
LOC: PSN 08:06
PROVIDERS: PCP Family Medicine; Referring Provider Internal Medicine Critical Care Medicine; Visit Provider Internal Medicine Critical Care Medicine
DX: J96.90 Respiratory failure, unspecified, unspecified whether with hypoxia or hypercapnia (principal)
CPT/HCPCS: 94060; 94726; 94729

== ENCOUNTER → 2022-01-27 | Outpatient (CLI) | payer OTHER, SELFPAY ==
[2022-01-27 06:38] VITALS: PULSE 100; PULSE 104; PULSE 106; PULSE 120; PULSE 79; PULSE 82; PULSE 99; O2SAT 91; O2SAT 92; O2SAT 93; O2SAT 94; O2SAT 95; O2SAT 96
--- NOTE | 2022-01-28 05:46 | PCM.PSN.6M ---
PSN 6 Minute Walk Test 6 Minute Walk Test 6 Minute Walk Test: 6 Minute Walk Test PSN:6-Minute Walk Test Start: 01/27/22 06:38 Freq: Status: Active Protocol: RESP.6MINW Document 01/27/22 06:38 [facility] (Rec: 01/27/22 06:41 [facility] [id number]) 6 Minute Walk Test Date Performed 01/27/22 Time Performed 06:30 Height 6 ft Weight: 111.13 kg Weight in Pounds 245.[address]: Lowell Lopez Assistive device used: None Pre-test Oxygen Delivery Method Room Air Pulse Ox (%) 95 Pulse Rate (60-100 beats/min) 79 Dyspnea Edgar Scale (0-10) 0 Exertion Edgar Scale (6-20) 6 1st minute Oxygen Delivery Method Room Air Pulse Ox (%) 91 Pulse Rate (60-100 beats/min) 100 2nd minute Oxygen Delivery Method Room Air Pulse Ox (%) 94 Pulse Rate (60-100 beats/min) 104 H 3rd minute Oxygen Delivery Method Room Air Pulse Ox (%) 93 Pulse Rate (60-100 beats/min) 99 4th minute Oxygen Delivery Method Room Air Pulse Ox (%) 91 Pulse Rate (60-100 beats/min) 106 H 5th minute Oxygen Delivery Method Room Air Pulse Ox (%) 92 Pulse Rate (60-100 beats/min) 104 H 6th minute Oxygen Delivery Method Room Air Pulse Ox (%) 93 Pulse Rate (60-100 beats/min) 120 H Dyspnea Edgar Scale (0-10) 2 Exertion Edgar Scale (6-20) 12 Post-test Oxygen Delivery Method Room Air Pulse Ox (%) 96 Pulse Rate (60-100 beats/min) 82 Full Laps Walked 24 Partial Lap, Number of Tiles Walked 15 Total Distance Walked (ft) 1431 Interpretation Interpretation: The patient was able to ambulate 1431 feet over the course of 6 minutes on room air with no assistive devices or breaks. The patient did experience significant desaturation from 95% to as low as 91%. As a result, patient did have a reflexive tachycardia as high as 120 bpm. These findings are consistent with a respiratory limitation exercise tolerance. Recommendations Recommendations: No supplemental oxygen is indicated at this time. However, patient will need to be followed closely given level of desaturation.
== END | disposition home or self-care (01) ==
LOC: PSN 06:20
PROVIDERS: PCP Family Medicine; Referring Provider Internal Medicine Critical Care Medicine; Visit Provider Internal Medicine Critical Care Medicine
DX: J96.90 Respiratory failure, unspecified, unspecified whether with hypoxia or hypercapnia (principal)
CPT/HCPCS: 94618

== ENCOUNTER → 2022-09-02 | Outpatient (CLI) | payer OTHER, SELFPAY ==
[2022-09-02 13:38] LABS: PSA,Total - Annual Screen 0.55 ng/mL (0.00-4.00)
== END | disposition home or self-care (01) ==
LOC: BFHLAB 08:58
PROVIDERS: PCP Family Medicine; Visit Provider Urology
DX: R35.1 Nocturia (principal); R68.82 Decreased libido
CPT/HCPCS: 36415; 84153; 84403; G0103

== ENCOUNTER → 2023-08-04 | Outpatient (CLI) | payer OTHER, SELFPAY | END | disposition home or self-care (01) | LOC: MTLAB 13:48 | PROVIDERS: PCP Family Medicine; Referring Provider Urology; Visit Provider Urology | DX: R68.82 Decreased libido (principal) | CPT/HCPCS: 36415; 84403 ==

== ENCOUNTER → 2024-01-02 | Outpatient (CLI) | payer OTHER, SELFPAY ==
[2024-01-02 12:15] LABS: Absolute Lymphocyte Count 1.87 X10^3/uL (0.83-4.51); Absolute Neutrophil Count 3.7 X10^3/uL (2.0-7.7); Basophil# 0.03 X10^3/uL; Basophil% 0.5 % (0-1); Eosinophil# 0.07 X10^3/uL; Eosinophils% 1.1 % (0-5); Hematocrit 44.2 % (40-54); Hemoglobin 13.9 g/dL (13.0-16.5); Lymphocyte # 1.87 X10^3/ul (0.83-4.51); Lymphocyte % 30.6 % (19-41); Mean Corp Hgb Conc 31.4 g/dL (32-36); Mean Corpuscular Hgb 28.9 pg (27.0-32.0); Mean Corpuscular Volume 91.9 fL (80-94); Mean Platelet Vol. 11.3 fl (6.2-12.0); Monocyte# 0.45 X10^3/uL; Monocyte% 7.4 % (0-10); NRBC Flagged by Analyzer 0 % (0-5); Neutrophil # 3.69 X10^3/uL (2.7-7.7); Neutrophil % 60.2 % (47-70); Platelet Count 143 K/mm3 (150-450); RBC Distribution Width CV 12.8 % (11.6-14.6); RBC Distribution Width SD 43.2 fl (35.1-43.9); Red Blood Count 4.81 M/mm3 (4.6-6.2); White Blood Count 6.1 K/mm3 (4.4-11.0)
[2024-01-02 12:49] LABS: AST(SGOT) 29 U/L (15-37); Alanine Aminotransfer ALT/SGPT 39 U/L (16-61); Albumin, Serum 3.8 g/dL (3.2-5.0); Alkaline Phosphatase 74 U/L (45-117); Anion Gap 4 (5-15); BUN 19 mg/dL (7-18); BUN/Creat Ratio 17.6 RATIO (10-20); Calcium,Total 8.8 mg/dL (8.5-10.1); Chloride 108 mmol/L (98-107); Cholesterol 188 mg/dL (200); Creatinine, Serum 1.08 mg/dL (0.70-1.30); EST Glomerular Filtration Rate 74 mL/min (>60); Est Glom Filt Rate - Afr Amer 89 mL/min (>60); Globulin 3.7 g/dL (2.2-4.2); Glucose 104 mg/dL (74-106); High Density Lipoprotein 51 mg/dL; PSA,Total - Annual Screen 0.64 ng/mL (0.00-4.00); Potassium 4.6 mmol/L (3.5-5.1); Protein, Total 7.5 g/dL (6.4-8.2); Sodium Level 140 mmol/L (136-145); Triglycerides 57 mg/dL; Very Low Density Lipoprotein 11 mg/dL (5-40)
== END | disposition home or self-care (01) ==
LOC: BFHLAB 08:52
PROVIDERS: PCP Nurse Practitioner Family; Referring Provider Nurse Practitioner Family; Visit Provider Nurse Practitioner Family
DX: Z00.01 Encounter for general adult medical examination with abnormal findings (principal); Z12.5 Encounter for screening for malignant neoplasm of prostate
CPT/HCPCS: 36415; 80053; 80061; 84153; 85025; G0103

== ENCOUNTER → 2025-02-05 | Outpatient (CLI) | payer OTHER, SELFPAY ==
[2025-02-05 19:07] LABS: PSA,Total- Diagnostic 0.68 ng/mL (0.00-4.00)
== END | disposition home or self-care (01) ==
LOC: BFHLAB 16:20
PROVIDERS: PCP Nurse Practitioner Family
DX: N40.1 Benign prostatic hyperplasia with lower urinary tract symptoms (principal)
CPT/HCPCS: 36415; 84153